=== PATIENT | female | born 1965 | race Caucasian/White ===

== ENCOUNTER 2023-02-05 14:01 | Emergency (ER) | payer MEDICAID, SELFPAY ==
[2023-02-05 14:20] VITALS: BP 125/78; PULSE 78; RESP 12; TEMP 37.3; O2SAT 95; BMI 43.3
--- NOTE | 2023-02-05 14:24 | ED.GENADULT ---
HPI - General Adult General Time Seen by Provider: 14:24 Date Seen: 02/05/23 Chief complaint: Shortness of Breath/Dyspnea Stated complaint: Shortness of breath, headache Time Seen by Provider: 02/05/23 14:23 Source: patient and RN notes reviewed Mode of arrival: ambulatory Limitations: no limitations History of Present Illness HPI narrative: Patient is a 57-year-old female coming in with symptoms at all started last night including fevers and chills, dry cough, significant headache, nausea without vomiting. She has body aches. There has been no travel, no known ill contacts. Her temperature has been up to 102.6, last took Tylenol at 9:40 a.m.. She is wanting something for her headache. She does have a sense of her chest feeling tight or heavy. Denies any history of lung or heart issues. Do note that her chart has a diagnosis of asthma. Nursing staff collected the triple viral swab which is pending. No abdominal pain, no vomiting, no diarrhea. Related Data Home Medications Medication Instructions Recorded Confirmed albuterol sulfate 90 mcg/actuation 2 puff inhalation Q4H PRN 03/19/22 aerosol inhaler (Ventolin HFA) bupropion HCl 150 mg 24 hr tablet, 150 mg PO QAM 03/19/22 extended release cyclobenzaprine 10 mg tablet 5 - 10 mg PO TID PRN 03/19/22 hydrocodone 5 mg-acetaminophen 325 1 tab PO Q6H PRN 03/19/22 mg tablet ketorolac 10 mg tablet 10 mg PO TID PRN 03/19/22 lorazepam 1 mg tablet 1 mg PO TID PRN 03/19/22 ondansetron HCl 4 mg tablet 4 mg PO Q6H PRN 03/19/22 Previous Rx's Medication Instructions Recorded metformin 500 mg tablet See Rx Instructions .Route 06/03/22 .COMPLEX #270 tabs alprazolam 1 mg tablet 0.5 - 1 mg (0.5 - 1 x 1 mg) PO TID 11/21/22 PRN anxiety #30 tabs trazodone 150 mg tablet 150 mg PO .HS PRN insomnia #90 tabs 11/21/22 fluoxetine 20 mg capsule 60 mg (3 x 20 mg) PO QDAY #270 caps 01/19/23 doxycycline monohydrate 100 mg 100 mg PO BID #20 caps 02/05/23 capsule Allergies Allergy/AdvReac Type Severity Reaction Status Date / Time vancomycin Allergy Unknown Verified 04/11/22 15:00 Review of Systems Status of ROS: Reports: 6 or more systems reviewed and unremarkable except as noted in History and below [facility] Medical History MATIAS on CPAP ?G47.33 - Obstructive sleep apnea (adult) (pediatric) (ICD-10) ?Z99.89 - Dependence on other enabling machines and devices (ICD-10) Obesity ?E66.9 - Obesity, unspecified (ICD-10) Latent autoimmune diabetes in adults, managed as type 2 ?E13.9 - Other specified diabetes mellitus without complications (ICD-10) Hypertension ?I10 - Essential (primary) hypertension (ICD-10) History of smoking ?Z87.891 - Personal history of nicotine dependence (ICD-10) Depression ?F32.A - Depression, unspecified (ICD-10) Concussion ?S06.0X9A - Concussion with loss of consciousness of unspecified duration, initial encounter (ICD-10) Chronic low back pain ?M54.50 - Low back pain, unspecified (ICD-10) ?G89.29 - Other chronic pain (ICD-10) Asthma ?J45.909 - Unspecified asthma, uncomplicated (ICD-10) Surgical History History of hysterectomy with oophorectomy History of cholecystectomy ?Z90.49 - Acquired absence of other specified parts of digestive tract (ICD-10) History of appendectomy ?Z90.49 - Acquired absence of other specified parts of digestive tract (ICD-10) Family History (Updated 04/11/22 @ 15:04 by Jaylene Martin) Unknown Diabetes Exam Const: Vital Signs, click to edit/add: Vital Signs - 24 hr 02/05/23 14:20 02/05/23 15:25 Temperature 99.2 F Pulse Rate [Pulse Oximeter] 78 67 Respiratory Rate 12 20 Blood Pressure [Ri ght Upper Arm] 125/78 133/85 Pulse Oximetry 95 95 Oxygen Delivery Me thod Room Air Room Air Documenting provider has reviewed patient's vital signs: yes Common normals: no apparent distress, average body habitus, oriented x3, no limitations, healthy appearing and alert General appearance: cooperative, comfortable, well kempt and well developed HENMT: Common normals: normocephalic, head/scalp atraumatic, hearing grossly normal bilaterally, external ears normal, TM's normal bilaterally, moist oral mucous membranes, oropharynx normal (Has upper denture) and gingiva normal Head and scalp: normocephalic and atraumatic Face and sinus: normal facial exam External ear: external ears normal Tympanic membrane: TM's normal bilaterally Eye: Common normals: PERRL, EOMs intact bilaterally, conjunctivae normal and no scleral icterus Conjunctiva: conjunctiva(e) normal Pupil: PERRL Neck & C-Spine: Common normals: full ROM, no lymphadenopathy, supple, no meningeal signs, no JVD and thyroid normal Thyroid: thyroid normal Lymph: Lymphatic: no lymphadenopathy noted Resp: Common normals: normal respiratory effort, no retractions and no use of accessory muscles Effort & inspection: able to speak in complete sentences Other: Maybe some basilar crackles on the right side, very faint however. Cardio: Common normals: no JVD, regular rate, regular rhythm, S1 normal heart sound, S2 normal heart sound, no gallops, no clicks and no murmurs Rate: regular rate Rhythm: regular rhythm Heart sounds: S1 normal and S2 normal GI: Common normals: Normal to inspection, nondistended, normoactive bowel sounds present, soft to palpation, non-tender, no hepatosplenomegaly and no masses Palpation: soft and no hepatosplenomegaly Extremity: Other: No lower extremity edema, no calf tenderness. Neuro: Common normals: oriented x3 Sensorium/orientation: alert Meningeal signs: no meningeal signs Psych: Appearance: well kempt Skin: Common normals: no rashes or lesions noted General skin exam: no rashes or lesions noted Course Course Hospital Course: Patient will be on pulse oximetry. Will get an EKG, established IV and get basic blood work. The triple viral swab is pending. We will obtain a portable chest x-ray. She most definitely has infectious etiology which is likely respiratory in nature. We discussed that we certainly can see accompanying headache with that. I have no concerns for clinical bacterial meningitis at this time. Will establish the IV as stated, give her some IV fluids, 15 mg IV Toradol and 4 mg IV Zofran for symptom control. Did review with the patient that if this is indeed COVID, have found that the headaches can be quite significant and best chance for treatment would be consideration of Paxlovid. We will discuss further pending outcomes of her testing. She is clinically hemodynamically stable at this time. Reevaluation(s) Time of Reevaluation #1: 15:48 Reevaluation #1: Reviewed with patient that radiologist his over read her chest x-ray is negative but I question if there is a faint infiltrate in the right lower lobe. She has an elevated white count that would go with bacterial pneumonia. Her COVID, influenza, RSV are negative. She has just gotten the IV fluids started and the Toradol, thus cannot really say that her headache is helped from this. We are going to give her dose of IV doxycycline for community-acquired pneumonia. Plan to discharge on oral antibiotics. Vital Signs Vital signs: Initial Vital Signs Temperature 99.2 F 02/05/23 14:20 Temperature Source Oral 02/05/23 14:20 Pulse Rate 78 02/05/23 14:20 Respiratory Rate 12 02/05/23 14:20 Blood Pressure 125/78 02/05/23 14:20 Blood Pressure Mean 93 02/05/23 14:20 Blood Pressure Position Sitting 02/05/23 14:20 Pulse Oximetry 95 02/05/23 14:20 Oxygen Delivery Method Room Air 02/05/23 14:20 Vital Signs Temperature 99.2 F 02/05/23 14:20 Pulse Rate 78 02/05/23 14:20 Respiratory Rate 12 02/05/23 14:20 Blood Pressure 125/78 02/05/23 14:20 Pulse Oximetry 95 02/05/23 14:20 Oxygen Delivery Method Room Air 02/05/23 14:20 Temperature 99.2 F 02/05/23 14:20 Pulse Rate 67 02/05/23 15:25 Respiratory Rate 20 02/05/23 15:25 Blood Pressure 133/85 02/05/23 15:25 Pulse Oximetry 95 02/05/23 15:25 Oxygen Delivery Method Room Air 02/05/23 15:25 Medical Decision Making Lab Data Lab results reviewed: Yes I reviewed the patient's lab results Labs: Lab Results 02/05/23 02/05/23 Range/Units 14:25 14:50 WBC 14.97 H (4.50-11.00) K/uL RBC 4.56 (4.00-5.20) m/uL Hgb 13.6 (12.0-16.0) gm/dL Hct 41.1 (33.0-51.0) % MCV 90 (80-100) fL MCH 30 (26-34) pg MCHC 33 (32-36) gm/dL RDW Coeff of Kathy 12.4 (11.5-15.5) % Plt Count 178 (140-440) K/uL Neut % (Auto) 79.8 H (42.0-72.0) % Lymph % (Auto) 13.8 L (20-44) % Cecil % (Auto) 6.1 (0.0-11.0) % Eos % (Auto) 0.1 (0.0-7.0) % Baso % (Auto) 0.1 (0.0-3.0) % Neut # (Auto) 11.90 H (1.7-7.0) K/uL Lymph # (Auto) 2.10 (0.90-2.90) K/uL Cecil # (Auto) 0.90 (0.00-0.90) K/UL Eos # (Auto) 0.00 (0.00-0.50) K/uL Baso # (Auto) 0.00 (0.00-0.30) K/uL Abs Immat Gran (auto) 0.00 (0.00-0.30) K/uL Imm/Tot Granulo (auto) 0.1 % Sodium 140 (135-149) mmol/L Potassium 3.6 (3.6-5.1) mmol/L Chloride 104 (96-114) mmol/L Carbon Dioxide 28 (20-32) mmol/L BUN 14 (7-30) mg/dL Creatinine 0.9 (0.5-1.5) mg/dL Estimated Creat Clear 63.55 Estimated GFR 76 ml/min Glucose 116 H (60-115) mg/dL Calcium 8.6 (8.4-10.6) mg/dL C-Reactive Protein 2.7 H (0.5-1.0) mg/dL SARS-CoV-2 (PCR) Negative SARS-CoV-2 (Negative) Influenza Type A (PCR) Negative PCR FLU A (Negative) Influenza Type B (PCR) Negative PCR FLU B (Negative) RSV (PCR) Negative PCR RSV (Negative) POC Troponin I 0.01 (0.01-0.04) ng/ml Imaging Data Chest x-ray: Attestation: I have reviewed the pertinent imaging results. Radiologist's impression: Patient: SERINA KAHN Facility:?[facility] Patient ID:?[id number] Site Patient ID:?[id number]. Site :?[id number] Study:?XRay Chest PORTABLE-02/05/2023 2:56:50 PM Ordering Physician:?Wilber Castillo Final Report: INDICATION: FEVER, COUGH TECHNIQUE: Chest 1 view. COMPARISON: None. FINDINGS: Cardiovascular and mediastinum: Heart size and vasculature are normal in caliber and appearance. Mediastinum is within normal limits. Lungs and pleural space: Lungs are clear. No sign of infiltrate or mass. No sign of pleural effusion. No pneumothorax. Bones and soft tissues: No significant findings. IMPRESSION: Unremarkable chest. Dictated by: Chico Alfred MD @ 02/05/2023 15:03:59 (Electronic Signature) ECG Data Attestation: I personally reviewed and interpreted this ECG as follows: (Normal sinus rhythm, 62 beats per minute. No evidence of ischemia. QT corrected 464 milliseconds.) Prior ECG tracings: not available for review Critical Care Time Critical Care Time Critical Care Time: No Discharge Plan Discharge Clinical Impression: Community acquired pneumonia Patient Disposition: Home, Self-Care Condition: Stable Instructions: Community Acquired Pneumonia (ED) Additional Instructions: Start oral antibiotics this evening and take as prescribed. Drink plenty of fluids to stay hydrated. Tylenol and ibuprofen per bottle directions as needed for pain management. The headaches and fever should improve over the next few days as the antibiotics work. If you are not improving, feel at any point that you have increasing symptoms or difficulty breathing, please seek re-evaluation. Otherwise, recheck in clinic in the next 1-2 weeks. Activity Level: Activity as Tolerated Prescriptions: New doxycycline monohydrate 100 mg capsule 100 mg PO BID Qty: 20 0RF No Action cyclobenzaprine 10 mg tablet 5 - 10 mg PO TID PRN Rx Instructions: Can use 1/2tab morning, 1/2tab midday and 1 at bedtime to minimize sedation. ondansetron HCl 4 mg tablet 4 mg PO Q6H PRN ketorolac 10 mg tablet 10 mg PO TID PRN lorazepam 1 mg tablet 1 mg PO TID PRN bupropion HCl 150 mg tablet extended release 24 hr 150 mg PO QAM albuterol sulfate [Ventolin HFA] 90 mcg/actuation HFA aerosol inhaler 2 puff inhalation Q4H PRN hydrocodone-acetaminophen 5-325 mg tablet 1 tab PO Q6H PRN metformin 500 mg tablet See Rx Instructions .ROUTE .COMPLEX Qty: 270 3RF Dose Instruction: TAKE 1 TABLET BY MOUTH EVERY MORNING AND TAKE 2 TABLETS BY MOUTH AT SUPPER(TAKE WITH FOOD) Rx Instructions: TAKE 1 TABLET BY MOUTH EVERY MORNING AND TAKE 2 TABLETS BY MOUTH AT SUPPER(TAKE WITH FOOD) alprazolam 1 mg tablet 0.5 - 1 mg PO TID PRN (Reason: anxiety) Qty: 30 1RF trazodone 150 mg tablet 150 mg PO .HS PRN (Reason: insomnia) Qty: 90 3RF fluoxetine 20 mg capsule 60 mg PO QDAY Qty: 270 2RF Follow Up/Referrals: Ned Aquino MD [Primary Care Provider] - Stand Alone Forms: Shoopi Info Instructions
--- NOTE | 2023-02-05 14:33 | CRLHL7_ITS ---
For Patients: As a result of the Cures Act, medical imaging exams and procedure reports are released immediately into your electronic medical record. You may view this report before your referring provider. If you have questions, please contact your health care provider. INDICATION: FEVER, COUGH TECHNIQUE: Chest 1 view. COMPARISON: None. FINDINGS: Cardiovascular and mediastinum: Heart size and vasculature are normal in caliber and appearance. Mediastinum is within normal limits. Lungs and pleural space: Lungs are clear. No sign of infiltrate or mass. No sign of pleural effusion. No pneumothorax. Bones and soft tissues: No significant findings. IMPRESSION: Unremarkable chest. Dictated by: Chico Alfred MD @ 02/05/2023 15:03:59 (Electronically Signed)
[2023-02-05 15:02] LABS: Basophils Percent Auto 0.1 % (0.0-3.0); Eosinophils Percent Auto 0.1 % (0.0-7.0); Hematocrit 41.1 % (33.0-51.0); Hemoglobin* 13.6 gm/dL (12.0-16.0); Immature Granulocytes Pct Auto 0.1 %; Lymphocytes Percent Auto 13.8 % (20-44); Mean Corpuscular HGB Conc 33 gm/dL (32-36); Mean Corpuscular Hemoglobin 30 pg (26-34); Mean Corpuscular Volume 90 fL (80-100); Monocytes Percent Auto 6.1 % (0.0-11.0); Neutrophils Percent Auto 79.8 % (42.0-72.0); Platelet Count* 178 K/uL (140-440); RDW Coefficient of Variation % 12.4 % (11.5-15.5); Red Blood Count 4.56 m/uL (4.00-5.20); White Blood Count* 14.97 K/uL (4.50-11.00)
[2023-02-05 15:05] LABS: Troponin, Point-of-Care* 0.01 ng/ml (0.01-0.04)
[2023-02-05 15:10] LABS: Slide Review Reflex No
[2023-02-05] MEDS: ONDANSETRON 2 MG/ML inj 4 MG IVP (15:14)
[2023-02-05] MEDS: 0.9 % SODIUM CHLORIDE 1000 ml 1,000 ML IV (15:14)
[2023-02-05] MEDS: KETOROLAC 15 MG/ML inj IVP (15:16)
[2023-02-05 15:25] VITALS: BP 133/85; PULSE 67; RESP 20; O2SAT 95
[2023-02-05 15:26] LABS: PCR FLU A Negative PCR FLU A (Negative); PCR FLU B Negative PCR FLU B (Negative); PCR RSV Negative PCR RSV (Negative)
[2023-02-05 15:31] LABS: SARS PCR* Negative SARS-CoV-2 (Negative)
[2023-02-05 15:33] LABS: Chloride* 104 mmol/L (96-114); Potassium* 3.6 mmol/L (3.6-5.1); Sodium* 140 mmol/L (135-149)
[2023-02-05 15:36] LABS: Blood Urea Nitrogen* 14 mg/dL (7-30); Calcium* 8.6 mg/dL (8.4-10.6); Carbon Dioxide* 28 mmol/L (20-32); Creatinine* 0.9 mg/dL (0.5-1.5); Est. Creatinine Clearance* 63.55; Estimated Glomerular Filt Rate 76 ml/min; Glucose* 116 mg/dL (60-115)
[2023-02-05 16:00] VITALS: BP 125/62; PULSE 63; RESP 20; O2SAT 99
[2023-02-05] MEDS: DOXYCYCLINE HYCLATE 100 MG in 0.9 % SODIUM CHLORIDE Mini-bag 100 ML IVPB (16:51)
[2023-02-05 17:00] VITALS: BP 130/77; PULSE 68; RESP 18
[2023-02-05 17:05] LABS: C Reactive Protein* 2.7 mg/dL (0.5-1.0)
[2023-02-05 18:50] VITALS: BP 124/60; PULSE 67; RESP 18; TEMP 36.1; O2SAT 98
== END 2023-02-05 18:53 | disposition home or self-care (01) ==
PROVIDERS: Emergency Provider Family Medicine; PCP Family Medicine
DX: J18.9 Pneumonia, unspecified organism (principal)
CPT/HCPCS: 36415; 71045; 80048; 84484; 85025; 86140; 87631; 93005; 94761; 96365; 96375; 99284; 99285; J1885; J2405; J7030

== ENCOUNTER 2023-03-20 12:14 | Emergency (ER) | payer MEDICAID, SELFPAY ==
[2023-03-20] VITALS (8 sets, daily range): BP systolic 142–157; BP diastolic 83–87; PULSE 56–64; RESP 18; TEMP 36.6; O2SAT 93–97; BMI 44.9
--- NOTE | 2023-03-20 12:35 | CRLHL7_ITS ---
For Patients: As a result of the Century Cures Act, medical imaging exams and procedure reports are released immediately into your electronic medical record. You may view this report before your referring provider. If you have questions, please contact your health care provider. Indication: Chest pain, shortness of breath and chest tightness Comparison: Single view chest February 05, 2023 Technique: Single AP view chest Findings: There is hyperinflation and chronic interstitial change. There are increased interstitial markings likely representing mild pulmonary vascular congestion. There is minimal basilar atelectasis and parenchymal scar. The cardiac silhouette is mildly prominent. The bony thorax is grossly intact. Impression: Increased interstitial markings likely representing pulmonary vascular congestion. Dictated by William Orr MD @ 03/20/2023 2:27:36 PM (Electronically Signed)
--- NOTE | 2023-03-20 12:39 | ED.CHESTPAIN ---
HPI - Chest Pain General Chief Complaint: Chest Pain Stated Complaint: chest tightness,short of breath Time Seen by Provider: 03/20/23 12:18 History of Present Illness HPI narrative: Patient is a 57-year-old woman who was diagnosed with pneumonia 1 month ago. She comes in today feeling like she is more short of breath since been having heaviness in her chest. Symptoms are moderate and been present for 2 days. She has no worsening with exertion. No fevers no chills no night sweats. She is not hypoxic. She does have a cough which is nonproductive. She is a previous smoker in did smoke some cigarettes for the 1st time in many years well camping last weekend. Patient has had no sick contacts she has been eating and drinking normally no other major symptoms. Related Data Home Medications Medication Instructions Recorded Confirmed hydrocodone 5 mg-acetaminophen 325 1 tab PO Q6H PRN 03/19/22 03/20/23 mg tablet ondansetron HCl 4 mg tablet 4 mg PO Q6H PRN 03/19/22 Previous Rx's Medication Instructions Recorded metformin 500 mg tablet See Rx Instructions .Route 06/03/22 .COMPLEX #270 tabs trazodone 150 mg tablet 150 mg PO .HS PRN insomnia #90 tabs 11/21/22 fluoxetine 20 mg capsule 60 mg (3 x 20 mg) PO QDAY #270 caps 01/19/23 albuterol sulfate 90 mcg/actuation 2 puff inhalation Q4H PRN 02/07/23 aerosol inhaler (Ventolin HFA) shortness of breath or wheezing #8.5 grams alprazolam 1 mg tablet 0.5 - 1 mg (0.5 - 1 x 1 mg) PO TID 02/14/23 PRN anxiety #30 tabs Allergies Allergy/AdvReac Type Severity Reaction Status Date / Time vancomycin Allergy Unknown Verified 04/11/22 15:00 Review of Systems Status of ROS Reports: 10 or more systems reviewed and unremarkable except as noted in History and below [facility] Medical History MATIAS on CPAP ?G47.33 - Obstructive sleep apnea (adult) (pediatric) (ICD-10) ?Z99.89 - Dependence on other enabling machines and devices (ICD-10) Obesity ?E66.9 - Obesity, unspecified (ICD-10) Latent autoimmune diabetes in adults, managed as type 2 ?E13.9 - Other specified diabetes mellitus without complications (ICD-10) Hypertension ?I10 - Essential (primary) hypertension (ICD-10) History of smoking ?Z87.891 - Personal history of nicotine dependence (ICD-10) Depression ?F32.A - Depression, unspecified (ICD-10) Concussion ?S06.0X9A - Concussion with loss of consciousness of unspecified duration, initial encounter (ICD-10) Chronic low back pain ?M54.50 - Low back pain, unspecified (ICD-10) ?G89.29 - Other chronic pain (ICD-10) Asthma ?J45.909 - Unspecified asthma, uncomplicated (ICD-10) Surgical History History of hysterectomy with oophorectomy History of cholecystectomy ?Z90.49 - Acquired absence of other specified parts of digestive tract (ICD-10) History of appendectomy ?Z90.49 - Acquired absence of other specified parts of digestive tract (ICD-10) Family History Unknown Diabetes Social History Smoking Status: Light tobacco smoker How often do you have a drink containing alcohol: monthly or less AUDIT-C Alcohol total score: 1 service: No Exam Narrative Exam Narrative: EXAM GENERAL: Patient appears comfortable and well. EYES: No scleral icterus. LYMPH: No supraclavicular or cervical lymphadenopathy. SKIN: Visible skin seen during exam normal or with benign process only. EXT: No dependent lower extremity pedal edema. HEART: Regular rate and rhythm with no murmurs, rubs, or gallops. LUNGS: Clear to auscultation bilaterally with no crackles or wheezes. ABD: Soft, non tender, non distended. PSYCH: Good eye contact, speech is not pressured. Const Vital Signs, click to edit/add: Vital Signs - 24 hr 03/20/23 12:26 Temperature 97.8 F Pulse Rate [Right Pulse Oximeter] 63 Respiratory Rate 18 Blood Pressure [Left Upper Arm] 146/83 H Pulse Oximetry 95 Oxygen Delivery Method Room Air Course Course Hospital Course: EKG upon my review shows no acute ST or T-wave changes. Patient appears to be in no distress. Her exam is normal I did send off portable chest x-ray CBC basic metabolic panel troponin D-dimer. Viral testing also requested. Vital Signs Vital signs: Initial Vital Signs Temperature 97.8 F 03/20/23 12:26 Temperature Source Temporal Artery Scan 03/20/23 12:26 Pulse Rate 63 03/20/23 12:26 Pulse Rhythm Regular 03/20/23 12:26 Respiratory Rate 18 03/20/23 12:26 Blood Pressure 146/83 H 03/20/23 12:26 Blood Pressure Mean 104 03/20/23 12:26 Blood Pressure Position Sitting 03/20/23 12:26 Pulse Oximetry 95 03/20/23 12:26 Oxygen Delivery Method Room Air 03/20/23 12:26 Vital Signs Temperature 97.8 F 03/20/23 12:26 Pulse Rate 63 03/20/23 12:26 Respiratory Rate 18 03/20/23 12:26 Blood Pressure 146/83 H 03/20/23 12:26 Pulse Oximetry 95 03/20/23 12:26 Oxygen Delivery Method Room Air 03/20/23 12:26 Temperature 97.8 F 03/20/23 12:26 Pulse Rate 63 03/20/23 12:26 Respiratory Rate 18 03/20/23 12:26 Blood Pressure 146/83 H 03/20/23 12:26 Pulse Oximetry 95 03/20/23 12:26 Oxygen Delivery Method Room Air 03/20/23 12:26 MDM - Chest Pain MDM Narrative Medical decision making narrative: Patient is a 57-year-old woman with history asthma who presented with chest fullness and heaviness. She had smoked cigarettes for 1st time in many years this past weekend. Laboratory evaluation was reassuring with negative troponin borderline but still in my opinion negative D-dimer CBC electrolytes were normal. Chest x-ray showed questionable pulmonary congestion. Patient really has no other findings consistent with congestive heart failure. Patient is otherwise feeling well and is ready for discharge. She is willing to follow-up next week with her primary. I would repeat the chest x-ray at that time and consider echocardiogram Differential Diagnosis Differential diagnosis: Likely fracture of rib, pneumothorax, stable angina, unstable angina pectoris, atypical chest pain, st elevation myocardial infarction, costochondritis and chest pain Lab Data Labs: Lab Results 03/20/23 03/20/23 Range/Units 12:42 13:20 WBC 7.34 (4.50-11.00) K/uL RBC 4.60 (4.00-5.20) m/uL Hgb 13.6 (12.0-16.0) gm/dL Hct 41.6 (33.0-51.0) % MCV 90 (80-100) fL MCH 30 (26-34) pg MCHC 33 (32-36) gm/dL RDW Coeff of Kathy 12.3 (11.5-15.5) % Plt Count 146 (140-440) K/uL Neut % (Auto) 61.0 (42.0-72.0) % Lymph % (Auto) 30.9 (20-44) % Bureau % (Auto) 6.5 (0.0-11.0) % Eos % (Auto) 1.2 (0.0-7.0) % Baso % (Auto) 0.3 (0.0-3.0) % Neut # (Auto) 4.47 (1.7-7.0) K/uL Lymph # (Auto) 2.27 (0.90-2.90) K/uL Bureau # (Auto) 0.50 (0.00-0.90) K/UL Eos # (Auto) 0.09 (0.00-0.50) K/uL Baso # (Auto) 0.02 (0.00-0.30) K/uL Abs Immat Gran (auto) 0.01 (0.00-0.30) K/uL Imm/Tot Granulo (auto) 0.1 % Diff Slide Review Acceptable Review (Acceptable) D-Dimer Quant (PE/DVT) 0.52 H (0.00-0.50) ug/ml Sodium 141 (135-149) mmol/L Potassium 3.5 L (3.6-5.1) mmol/L Chloride 106 (96-114) mmol/L Carbon Dioxide 26 (20-32) mmol/L Anion Gap 9 (7-15) mEq/L BUN 11 (7-30) mg/dL Creatinine 0.7 (0.5-1.5) mg/dL Estimated Creat Clear 81.71 Estimated GFR 102 ml/min Glucose 101 (60-115) mg/dL Calcium 8.8 (8.4-10.6) mg/dL Troponin I < 0.01 L (0.01-0.04) ng/mL SARS-CoV-2 (PCR) Negative SARS-CoV-2 (Negative) Influenza Type A (PCR) Negative PCR FLU A (Negative) Influenza Type B (PCR) Negative PCR FLU B (Negative) RSV (PCR) Negative PCR RSV (Negative) Discharge Plan Discharge Clinical Impression: Chest pain Patient Disposition: Home, Self-Care Condition: Stable Instructions: Chest Pain (ED) Additional Instructions: Continue current medications and follow up with her doctor next week to continue evaluation. Activity Level: No Restrictions Discharge Diet: Regular Prescriptions: No Action ondansetron HCl 4 mg tablet 4 mg PO Q6H PRN hydrocodone-acetaminophen 5-325 mg tablet 1 tab PO Q6H PRN metformin 500 mg tablet See Rx Instructions .ROUTE .COMPLEX Qty: 270 3RF Dose Instruction: TAKE 1 TABLET BY MOUTH EVERY MORNING AND TAKE 2 TABLETS BY MOUTH AT SUPPER(TAKE WITH FOOD) Rx Instructions: TAKE 1 TABLET BY MOUTH EVERY MORNING AND TAKE 2 TABLETS BY MOUTH AT SUPPER(TAKE WITH FOOD) trazodone 150 mg tablet 150 mg PO .HS PRN (Reason: insomnia) Qty: 90 3RF fluoxetine 20 mg capsule 60 mg PO QDAY Qty: 270 2RF albuterol sulfate [Ventolin HFA] 90 mcg/actuation HFA aerosol inhaler 2 puff inhalation Q4H PRN (Reason: shortness of breath or wheezing) Qty: 8.5 6RF alprazolam 1 mg tablet 0.5 - 1 mg PO TID PRN (Reason: anxiety) Qty: 30 1RF Follow Up/Referrals: Ned Aquino MD [Primary Care Provider] - Stand Alone Forms: Cerephex Info Instructions
[2023-03-20 13:34] LABS: Basophils Absolute Auto 0.02 K/uL (0.00-0.30); Basophils Percent Auto 0.3 % (0.0-3.0); Eosinophils Absolute Auto 0.09 K/uL (0.00-0.50); Eosinophils Percent Auto 1.2 % (0.0-7.0); Hematocrit 41.6 % (33.0-51.0); Hemoglobin* 13.6 gm/dL (12.0-16.0); Immature Granulocytes Abs Auto 0.01 K/uL (0.00-0.30); Immature Granulocytes Pct Auto 0.1 %; Lymphocytes Absolute Auto 2.27 K/uL (0.90-2.90); Lymphocytes Percent Auto 30.9 % (20-44); Mean Corpuscular HGB Conc 33 gm/dL (32-36); Mean Corpuscular Hemoglobin 30 pg (26-34); Mean Corpuscular Volume 90 fL (80-100); Monocytes Percent Auto 6.5 % (0.0-11.0); Neutrophils Absolute Auto 4.47 K/uL (1.7-7.0); Platelet Count* 146 K/uL (140-440); RDW Coefficient of Variation % 12.3 % (11.5-15.5); White Blood Count* 7.34 K/uL (4.50-11.00)
[2023-03-20 13:37] LABS: PCR FLU A Negative PCR FLU A (Negative); PCR FLU B Negative PCR FLU B (Negative); PCR RSV Negative PCR RSV (Negative)
[2023-03-20 13:48] LABS: SARS PCR* Negative SARS-CoV-2 (Negative)
[2023-03-20 13:49] LABS: Chloride* 106 mmol/L (96-114); Potassium* 3.5 mmol/L (3.6-5.1); Sodium* 141 mmol/L (135-149)
[2023-03-20 13:52] LABS: Anion Gap 9 mEq/L (7-15); Blood Urea Nitrogen* 11 mg/dL (7-30); Carbon Dioxide* 26 mmol/L (20-32); Creatinine* 0.7 mg/dL (0.5-1.5); Est. Creatinine Clearance* 81.71; Estimated Glomerular Filt Rate 102 ml/min; Glucose* 101 mg/dL (60-115)
[2023-03-20 13:53] LABS: Calcium* 8.8 mg/dL (8.4-10.6)
[2023-03-20 13:55] LABS: D Dimer Quantitative* 0.52 ug/ml (0.00-0.50)
[2023-03-20 14:02] LABS: Slide Review Reflex Yes
[2023-03-20 14:03] LABS: Slide Review Acceptable Review (Acceptable)
[2023-03-20 14:08] LABS: Troponin I* < 0.01 ng/mL (0.01-0.04)
[2023-03-20] MEDS: KETOROLAC 30 MG/ML inj IM (14:50)
== END 2023-03-20 14:52 | disposition home or self-care (01) ==
PROVIDERS: Emergency Provider Internal Medicine; PCP Family Medicine
DX: R07.9 Chest pain, unspecified (principal)
CPT/HCPCS: 36415; 71045; 80048; 84484; 85025; 85379; 87631; 93005; 96372; 99283; 99284; 99285; J1885

== ENCOUNTER 2023-05-10 08:58 | Emergency (ER) | payer MEDICAID, SELFPAY ==
[2023-05-10 09:01] VITALS: BP 174/96; PULSE 57; RESP 18; TEMP 36.4; O2SAT 99; BMI 46.6
--- NOTE | 2023-05-10 10:41 | ED.GENADULT ---
HPI - General Adult General Time Seen by Provider: 10:41 Date Seen: 05/10/23 Chief complaint: Headache/Migraine Stated complaint: Severe headache Time Seen by Provider: 05/10/23 10:28 History of Present Illness HPI narrative: This is a very pleasant 57-year-old female with a past medical history including type 2 diabetes, hypertension, obesity, sleep apnea, chronic low back pain. She manages her low back [facility] [place]. She has a history of needing lumbar spine injections, roughly once per year. She underwent another set of injections into her lumbar spine (she thinks at the L5-S1 level) yesterday. She is not sure if she had epidural steroid injections or facet injections or exactly what procedure she underwent. She had her back injections yesterday and did well. She was discharged home. Yesterday evening, she began developing headache. She noticed it in particular at around 2:00 a.m. last night when she woke up to use the bathroom. and worse this morning. The headache is predominantly in the back of her head and does make her neck feel little bit stiff. She is worried that she might have some sort of a spinal fluid leak and so came here to the ER. No other symptoms with the headache. No fever. No facial pain or sinus drainage. No visual disturbance. No change in hearing. No focal numbness or weakness. She says the pain is located in the back of her head and goes into her neck (but she is not really having neck stiffness). No injury. No known carbon monoxide exposure. No other symptoms. No low back pain. She has not had any recent change in her vision but she did get a new prescription a few weeks ago because it was time for her annual eye exam. Related Data Home Medications Medication Instructions Recorded Confirmed hydrocodone 5 mg-acetaminophen 325 1 tab PO Q6H PRN 03/19/22 05/10/23 mg tablet ondansetron HCl 4 mg tablet 4 mg PO Q6H PRN 03/19/22 Previous Rx's Medication Instructions Recorded metformin 500 mg tablet See Rx Instructions .Route 06/03/22 .COMPLEX #270 tabs trazodone 150 mg tablet 150 mg PO .HS PRN insomnia #90 tabs 11/21/22 fluoxetine 20 mg capsule 60 mg (3 x 20 mg) PO QDAY #270 caps 01/19/23 albuterol sulfate 90 mcg/actuation 2 puff inhalation Q4H PRN 02/07/23 aerosol inhaler (Ventolin HFA) shortness of breath or wheezing #8.5 grams alprazolam 1 mg tablet 0.5 - 1 mg (0.5 - 1 x 1 mg) PO TID 02/14/23 PRN anxiety #30 tabs Allergies Allergy/AdvReac Type Severity Reaction Status Date / Time vancomycin Allergy Unknown Verified 04/11/22 15:00 [facility] Medical History MATIAS on CPAP ?G47.33 - Obstructive sleep apnea (adult) (pediatric) (ICD-10) ?Z99.89 - Dependence on other enabling machines and devices (ICD-10) Obesity ?E66.9 - Obesity, unspecified (ICD-10) Latent autoimmune diabetes in adults, managed as type 2 ?E13.9 - Other specified diabetes mellitus without complications (ICD-10) Hypertension ?I10 - Essential (primary) hypertension (ICD-10) History of smoking ?Z87.891 - Personal history of nicotine dependence (ICD-10) Depression ?F32.A - Depression, unspecified (ICD-10) Concussion ?S06.0X9A - Concussion with loss of consciousness of unspecified duration, initial encounter (ICD-10) Chronic low back pain ?M54.50 - Low back pain, unspecified (ICD-10) ?G89.29 - Other chronic pain (ICD-10) Asthma ?J45.909 - Unspecified asthma, uncomplicated (ICD-10) Surgical History History of hysterectomy with oophorectomy History of cholecystectomy ?Z90.49 - Acquired absence of other specified parts of digestive tract (ICD-10) History of appendectomy ?Z90.49 - Acquired absence of other specified parts of digestive tract (ICD-10) Family History Unknown Diabetes Social History Smoking Status: Former smoker Do you use any of these nicotine containing products: None Second hand tobacco smoke exposure: No How often do you have a drink containing alcohol: monthly or less How many standard drinks containing alcohol do you have on a typical day: 1 or 2 How often do you have six or more drinks on one occasion: Never AUDIT-C Alcohol total score: 1 Non-prescribed substance use: denies use service: No Exam Narrative: Exam Narrative: Constitutional: Appears well-developed and well-nourished. Alert. Conversant. Non toxic. Sitting up in the chair in ER room for. She is polite and conversant and nontoxic. HENT: Head: Atraumatic. Nose: Nose normal. No depressed skull fracture, [place], Santos's sign, or hemotympanum. Face normal. TMs normal Mouth/Throat: Oral mucosa is clear and moist. no trismus. Pharynx normal. Tonsils symmetric. No tonsillar enlargement, erythema, or exudate. Eyes: Conjunctivae normal. EOM normal. Pupils equal, round, and reactive to light. No scleral icterus. Neck: Normal range of motion. Neck supple. No tracheal deviation present. Cardiovascular: Normal rate, regular rhythm. No gallop. No friction rub. No murmur heard. Symmetric radial artery pulses Pulmonary/Chest: Effort normal. No stridor. No respiratory distress. No wheezes. No rales. No rhonchi . No tenderness. Abdominal: Soft. Bowel sounds normal. No distension. No mass. No tenderness. No rebound. No guarding. Musculoskeletal: RUE: Normal range of motion. No tenderness. No deformity LUE: Normal range of motion. No tenderness. No deformity RLE: Normal range of motion. No edema. No tenderness. No deformity LLE: Normal range of motion. No edema. No tenderness. No deformity Lymph: No cervical adenopathy. Mental status normal. Attention normal. Alert and oriented x3. GCS 15. Memory normal. Speech fluent. Cognition normal. Cranial Nerves intact II-XII except I did not formally test gag or visual acuity. EOMI. Palate elevates symmetrically and tongue protrudes in the midline. Strength: 5/5 trapezius on the right and left 5/5 deltoid on the right and left 5/5 biceps on the right and left 5/5 triceps on the right and left 5/5 electronic field service engineer on the right and left 5/5 thumb opposition on the right and left 5/5 finger abduction on the right and left 5/5 hip flexors (L3) on the right and left 5/5 quadriceps (L4) on the right and left 5/5 tibialis anterior on the right and left 5/5 EHL (L5) on the right and left 5/5 gastrocnemius (S1) on the right and left 5/5 hamstring on the right and left Sensation intact to light touch in both upper extremities (C4-T1) Sensation intact to light touch in Both lower extremities (L4-S1). Finger to nose and coordination normal. Gait normal. Skin: Skin is warm and dry. No rash noted. No pallor. Normal capillary refill. Psychiatric: Normal mood. Normal affect. Const: Vital Signs, click to edit/add: Vital Signs - 24 hr 05/10/23 09:01 05/10/23 12:17 05/10/23 14:21 Temperature 97.5 F L 96.9 F L 96.9 F L Pulse Rate [Pulse Oximeter] 57 L 63 63 Respiratory Rate 18 16 16 Blood Pressure [Ri ght Upper Arm] 174/96 H 161/86 H 161/86 H Pulse Oximetry 99 99 Oxygen Delivery Me thod Room Air Room Air Course Vital Signs Vital signs: Initial Vital Signs Temperature 97.5 F L 05/10/23 09:01 Temperature Source Temporal Artery Scan 05/10/23 09:01 Pulse Rate 57 L 05/10/23 09:01 Respiratory Rate 18 05/10/23 09:01 Blood Pressure 174/96 H 05/10/23 09:01 Blood Pressure Mean 122 H 05/10/23 09:01 Blood Pressure Position Supine 05/10/23 09:01 Pulse Oximetry 99 05/10/23 09:01 Oxygen Delivery Method Room Air 05/10/23 09:01 Vital Signs Temperature 97.5 F L 05/10/23 09:01 Pulse Rate 57 L 05/10/23 09:01 Respiratory Rate 18 05/10/23 09:01 Blood Pressure 174/96 H 05/10/23 09:01 Pulse Oximetry 99 05/10/23 09:01 Oxygen Delivery Method Room Air 05/10/23 09:01 Temperature 96.9 F L 05/10/23 14:21 Pulse Rate 63 05/10/23 14:21 Respiratory Rate 16 05/10/23 14:21 Blood Pressure 161/86 H 05/10/23 14:21 Pulse Oximetry 99 05/10/23 12:17 Oxygen Delivery Method Room Air 05/10/23 12:17 Medical Decision Making [facility] Narrative Medical decision making narrative: Ths patient presents with a headache affecting the back of her head and the top of her neck. She underwent lumbar spine injections yesterday. Patient was primarily concerned about the potential for a dural puncture related headache/post spinal headache. Discussed with patient that this certainly could be possible although the history is not classic for that since the headache is not positional or postural. Discussed that there is no definitive way to rule in or rule out the diagnosis. If there were high suspicion we could refer to Anesthesia for blood patch. With low clinical suspicion she would prefer to hold off any further procedures or blood patch for now. A broad differential diagnosis was considered including tension, migraine, analgesic rebound, occipital neuralgia, etc. Other less common but serious causes considered included meningitis, encephalitis, subarachnoid bleed, stroke, tumor, etc. since the headache was rather abrupt in onset and it is atypical for previous headache pattern we did decide to go ahead with advanced imaging. CT scan is negative for intracranial hemorrhage. However CT scan was obtained about 8 hours from onset of her bad headache and therefore cannot be will consider to be 100% sensitive for subarachnoid. CT angio is obtained and shows no acute aneurysm, dissection, or other vascular abnormality. Incidentally she does carotid atherosclerotic disease with less than 50% stenosis. Discussed with the patient and discussed risk factor modification. She will follow up with outpatient. CT scan does show potential signs for intracranial hypertension. I discussed with the patient. Would be a bit atypical for this to present with an abrupt onset headache overnight tonight. She does not have a pattern of other headaches or any other recent visual changes. We discussed that the best test to confirm or rule out intracranial hypertension would be opening pressure measurement after lumbar puncture. We discussed lumbar puncture. She would prefer to hold off for now. Labs also show leukocytosis which could raise concern for infection. However she also did have steroid injections yesterday so this could be a steroid de margination. At this point although she does have a headache and a leukocytosis I still have low suspicion for bacterial meningitis. she is not febrile, she is neurologically intact, she has no neck stiffness. She is clinically very well appearing. Discussed options for further workup. Patient referred to discharge home, take her previously prescribed [place] and monitor symptoms there. She says that she will come back if she gets any worse or develops other symptoms. Patients questions were answered and they feel improved after above interventions in ED. Supportive outpatient management is therefore indicated. Headache precautions given for home. Lab Data Labs: Lab Results 05/10/23 Range/Units 11:30 WBC 16.65 H (4.50-11.00) K/uL RBC 4.55 (4.00-5.20) m/uL Hgb 13.6 (12.0-16.0) gm/dL Hct 41.6 (33.0-51.0) % MCV 91 (80-100) fL MCH 30 (26-34) pg MCHC 33 (32-36) gm/dL RDW Coeff of Kathy 12.4 (11.5-15.5) % Plt Count 228 (140-440) K/uL Neut % (Auto) 78.2 H (42.0-72.0) % Lymph % (Auto) 15.6 L (20-44) % [place] % (Auto) 5.7 (0.0-11.0) % Eos % (Auto) 0.1 (0.0-7.0) % Baso % (Auto) 0.1 (0.0-3.0) % Neut # (Auto) 13.00 H (1.7-7.0) K/uL Lymph # (Auto) 2.60 (0.90-2.90) K/uL [place] # (Auto) 0.90 (0.00-0.90) K/UL Eos # (Auto) 0.00 (0.00-0.50) K/uL Baso # (Auto) 0.00 (0.00-0.30) K/uL Abs Immat Gran (auto) 0.00 (0.00-0.30) K/uL Imm/Tot Granulo (auto) 0.3 % Sodium 143 (135-149) mmol/L Potassium 3.5 L (3.6-5.1) mmol/L Chloride 109 (96-114) mmol/L Carbon Dioxide 27 (20-32) mmol/L Anion Gap 7 (7-15) mEq/L BUN 12 (7-30) mg/dL Creatinine 0.6 (0.5-1.5) mg/dL Estimated Creat Clear 95.33 Estimated GFR 106 ml/min Glucose 129 H (60-115) mg/dL Calcium 8.8 (8.4-10.6) mg/dL Imaging Data CT scan - head: Attestation: I have reviewed the pertinent imaging results. Radiologist's impression: IMPRESSION: 1. No acute intracranial hemorrhage or mass effect. No significant change compared to the prior CT. 2. Partially empty sella may represent an anatomic variant, though raises the possibility of idiopathic intracranial hypertension in an appropriate clinical setting. CT angio head and neck: Attestation: I have reviewed the pertinent imaging results. Radiologist's impression: No proximal large vessel occlusion or arterial dissection. Mild (less than 50 percent) proximal left cervical internal carotid artery stenosis. Discharge Plan Discharge Clinical Impression: Acute neck pain, Atherosclerosis of left carotid artery, Headache, Leukocytosis Patient Disposition: Home, Self-Care Condition: Stable Instructions: Carotid Artery Disease (DC), Acute Headache (DC), Leukocytosis (ED) Additional Instructions: As we discussed, please come back to the ER immediately if you have any worsening symptoms such as worsening headache, worsening stiff neck, fever or chills, blurry vision, numbness or tingling in your face arms or legs, weakness of an arm or leg, slurred speech, or if you have any concerns. Prescriptions: No Action ondansetron HCl 4 mg tablet 4 mg PO Q6H PRN hydrocodone-acetaminophen 5-325 mg tablet 1 tab PO Q6H PRN metformin 500 mg tablet See Rx Instructions .ROUTE .COMPLEX Qty: 270 3RF Dose Instruction: TAKE 1 TABLET BY MOUTH EVERY MORNING AND TAKE 2 TABLETS BY MOUTH AT SUPPER(TAKE WITH FOOD) Rx Instructions: TAKE 1 TABLET BY MOUTH EVERY MORNING AND TAKE 2 TABLETS BY MOUTH AT SUPPER(TAKE WITH FOOD) trazodone 150 mg tablet 150 mg PO .HS PRN (Reason: insomnia) Qty: 90 3RF fluoxetine 20 mg capsule 60 mg PO QDAY Qty: 270 2RF albuterol sulfate [Ventolin HFA] 90 mcg/actuation HFA aerosol inhaler 2 puff inhalation Q4H PRN (Reason: shortness of breath or wheezing) Qty: 8.5 6RF alprazolam 1 mg tablet 0.5 - 1 mg PO TID PRN (Reason: anxiety) Qty: 30 1RF Follow Up/Referrals: Ned Aquino MD [Primary Care Provider] - Stand Alone Forms: MyHealth Info Instructions
--- NOTE | 2023-05-10 11:17 | CRLHL7_ITS ---
For Patients: As a result of the Century Cures Act, medical imaging exams and procedure reports are released immediately into your electronic medical record. You may view this report before your referring provider. If you have questions, please contact your health care provider. CLINICAL HISTORY: Occipital headache, neck pain. TECHNIQUE: CTA neck with contrast bolus tracking. 3D angiographic rendering using maximum intensity projection (MIP) and images permanently archived. COMPARISON: None available. FINDINGS: The great vessels are patent. The common carotid arteries are patent. Mild (<50%) atherosclerotic stenosis of the proximal left ICA by NASCET criteria. No significant stenosis of the proximal right ICA by NASCET criteria. The more distal cervical ICAs are patent. The origins of the vertebral arteries are patent. The cervical segments of the vertebral arteries are patent. IMPRESSION: Mild (<50%) atherosclerotic stenosis of the proximal left ICA by NASCET criteria. Please note that all CT scans at this facility use dose modulation, iterative reconstruction, and/or weight-based dosing when appropriate to reduce radiation dose to as low as reasonably achievable. Dictated by Edwin Peguero MD @ 05/10/2023 9:30:43 PM (Electronically Signed)
--- NOTE | 2023-05-10 11:17 | CRLHL7_ITS ---
For Patients: As a result of the Century Cures Act, medical imaging exams and procedure reports are released immediately into your electronic medical record. You may view this report before your referring provider. If you have questions, please contact your health care provider. CLINICAL HISTORY: Occipital headache and neck pain. TECHNIQUE: CTA head with contrast bolus tracking. 3D angiographic rendering using maximum intensity projection (MIP) and images permanently archived. COMPARISON: None available. FINDINGS: The petrous, cavernous, and supraclinoid segments of the internal carotid arteries are patent. The anterior and middle cerebral arteries are patent. The anterior communicating artery is visualized and is within normal limits. The intracranial vertebral arteries, basilar trunk, and posterior cerebral arteries are patent. No intracranial proximal large vessel occlusion or flow-limiting luminal stenosis. No evidence of cerebral aneurysm. No findings to suggest an arterial-venous shunting lesion. IMPRESSION: No intracranial proximal large vessel occlusion, flow-limiting luminal stenosis, or cerebral aneurysm. Please note that all CT scans at this facility use dose modulation, iterative reconstruction, and/or weight-based dosing when appropriate to reduce radiation dose to as low as reasonably achievable. Dictated by Edwin Peguero MD @ 05/10/2023 9:26:50 PM (Electronically Signed)
--- NOTE | 2023-05-10 11:18 | CRLHL7_ITS ---
For Patients: As a result of the Century Cures Act, medical imaging exams and procedure reports are released immediately into your electronic medical record. You may view this report before your referring provider. If you have questions, please contact your health care provider. INDICATION: Headache. Neck pain. TECHNIQUE: Noncontrast CT images acquired through the brain. COMPARISON: CT brain 01/08/2021. FINDINGS: The ventricles and sulci are within normal limits for patient age. No mass effect or midline shift. The koch-white differentiation is maintained. No acute intracranial hemorrhage or pathologic extra-axial fluid collection. Partially empty sella. Atherosclerotic calcifications in the carotid siphons. The globes are symmetric. The calvarium is intact. The paranasal sinuses and mastoid air cells are clear. IMPRESSION: 1. No acute intracranial hemorrhage or mass effect. No significant change compared to the prior CT. 2. Partially empty sella may represent an anatomic variant, though raises the possibility of idiopathic intracranial hypertension in an appropriate clinical setting. Please note that all CT scans at this facility use dose modulation, iterative reconstruction, and/or weight-based dosing when appropriate to reduce radiation dose to as low as reasonably achievable. Dictated by Obed Oliver MD @ 05/10/2023 11:59:08 AM (Electronically Signed)
[2023-05-10 11:37] LABS: Basophils Percent Auto 0.1 % (0.0-3.0); Eosinophils Percent Auto 0.1 % (0.0-7.0); Hematocrit 41.6 % (33.0-51.0); Hemoglobin* 13.6 gm/dL (12.0-16.0); Immature Granulocytes Pct Auto 0.3 %; Lymphocytes Percent Auto 15.6 % (20-44); Mean Corpuscular HGB Conc 33 gm/dL (32-36); Mean Corpuscular Hemoglobin 30 pg (26-34); Mean Corpuscular Volume 91 fL (80-100); Monocytes Percent Auto 5.7 % (0.0-11.0); Neutrophils Percent Auto 78.2 % (42.0-72.0); Platelet Count* 228 K/uL (140-440); RDW Coefficient of Variation % 12.4 % (11.5-15.5); Red Blood Count 4.55 m/uL (4.00-5.20); White Blood Count* 16.65 K/uL (4.50-11.00)
[2023-05-10 11:48] LABS: Slide Review Reflex No
[2023-05-10] MEDS: KETOROLAC 15 MG/ML inj IVP (11:49)
[2023-05-10 11:53] LABS: Chloride* 109 mmol/L (96-114); Sodium* 143 mmol/L (135-149)
[2023-05-10 11:54] LABS: Potassium* 3.5 mmol/L (3.6-5.1)
[2023-05-10 11:56] LABS: Creatinine* 0.6 mg/dL (0.5-1.5); Est. Creatinine Clearance* 95.33; Estimated Glomerular Filt Rate 106 ml/min
[2023-05-10 11:57] LABS: Anion Gap 7 mEq/L (7-15); Blood Urea Nitrogen* 12 mg/dL (7-30); Calcium* 8.8 mg/dL (8.4-10.6); Carbon Dioxide* 27 mmol/L (20-32); Glucose* 129 mg/dL (60-115)
[2023-05-10 12:17] VITALS: BP 161/86; PULSE 63; RESP 16; TEMP 36.1; O2SAT 99
[2023-05-10 14:21] VITALS: BP 161/86; PULSE 63; RESP 16; TEMP 36.1
== END 2023-05-10 14:21 | disposition home or self-care (01) ==
PROVIDERS: Emergency Provider Emergency Medicine; PCP Family Medicine
DX: I65.22 Occlusion and stenosis of left carotid artery (principal); D72.829 Elevated white blood cell count, unspecified; R51.9 Headache, unspecified; M54.2 Cervicalgia
CPT/HCPCS: 36415; 70450; 70496; 70498; 80048; 85025; 96375; 99283; 99284; 99285; J1885; Q9967

== ENCOUNTER 2023-08-24 08:50 | Emergency (ER) | payer MEDICAID, SELFPAY ==
[2023-08-24 08:59] VITALS: BP 123/75; PULSE 53; TEMP 36.5; O2SAT 95; BMI 43.1
--- NOTE | 2023-08-24 09:21 | ED.GENADULT ---
HPI - General Adult General Time Seen by Provider: 09:21 Date Seen: 08/24/23 Chief complaint: Nausea/Vomiting Stated complaint: Flu symptoms, bladder infection Time Seen by Provider: 08/24/23 09:20 Source: patient and RN notes reviewed Mode of arrival: ambulatory Limitations: no limitations History of Present Illness HPI narrative: Standing he is a 57-year-old female coming in with concerns of ongoing nausea vomiting and diarrhea. Symptoms started Friday, is still having the symptoms today and it is Friday. She really can not eat anything, states it comes up. She is able to drink water and is keeping it down but feels like she is not able to drink enough to keep up. She has noted no blood in the vomit or stools. She is still having diarrhea as well as vomiting since Friday. She has had a little cough with it. She has felt warm and chilled at times, thinks she does have a fever but her thermometer battery at home, has not been able to check her temperature. Did have some sinus symptoms with this initially, did have 2- home COVID test. No known ill contacts or travel. She states this is longer she has had diarrhea has been trying some Imodium. Does feel some abdominal pain. Did have a gastric sleeve about 5 years ago, has had appendectomy, cholecystectomy and hysterectomy prior. This morning started to note some dysuria, was not sure she was just feeling feverish at the time or she is possibly getting a urinary tract infection. Related Data Home Medications Medication Instructions Recorded Confirmed hydrocodone 5 mg-acetaminophen 325 1 tab PO Q6H PRN 03/19/22 05/10/23 mg tablet ondansetron HCl 4 mg tablet 4 mg PO Q6H PRN 03/19/22 hydrocodone 10 mg-acetaminophen 1 tab PO Q6-8H PRN chronic pain 08/24/23 08/24/23 325 mg tablet Previous Rx's Medication Instructions Recorded metformin 500 mg tablet See Rx Instructions .Route 06/03/22 .COMPLEX #270 tabs trazodone 150 mg tablet 150 mg PO .HS PRN insomnia #90 tabs 11/21/22 fluoxetine 20 mg capsule 60 mg (3 x 20 mg) PO QDAY #270 caps 01/19/23 albuterol sulfate 90 mcg/actuation 2 puff inhalation Q4H PRN 07/14/23 aerosol inhaler (Ventolin HFA) shortness of breath or wheezing #8.5 grams atorvastatin 40 mg tablet 40 mg PO QHS #90 tabs 05/14/23 lisinopril 20 mg tablet 20 mg PO QDAY #30 tabs 05/14/23 alprazolam 1 mg tablet 0.5 - 1 mg (0.5 - 1 x 1 mg) PO TID 07/07/23 PRN anxiety #30 tabs ondansetron 4 mg disintegrating 4 mg PO Q6H PRN nausea and 08/24/23 tablet vomiting #20 tabs Allergies Allergy/AdvReac Type Severity Reaction Status Date / Time vancomycin Allergy Unknown Verified 08/24/23 09:03 Review of Systems Status of ROS: Reports: 6 or more systems reviewed and unremarkable except as noted in History and below [facility] Medical History MATIAS on CPAP ?G47.33 - Obstructive sleep apnea (adult) (pediatric) (ICD-10) ?Z99.89 - Dependence on other enabling machines and devices (ICD-10) Obesity ?E66.9 - Obesity, unspecified (ICD-10) Latent autoimmune diabetes in adults, managed as type 2 ?E13.9 - Other specified diabetes mellitus without complications (ICD-10) Hypertension ?I10 - Essential (primary) hypertension (ICD-10) History of smoking ?Z87.891 - Personal history of nicotine dependence (ICD-10) Depression ?F32.A - Depression, unspecified (ICD-10) Concussion ?S06.0X9A - Concussion with loss of consciousness of unspecified duration, initial encounter (ICD-10) Chronic low back pain ?M54.50 - Low back pain, unspecified (ICD-10) ?G89.29 - Other chronic pain (ICD-10) Asthma ?J45.909 - Unspecified asthma, uncomplicated (ICD-10) Surgical History History of hysterectomy with oophorectomy History of cholecystectomy ?Z90.49 - Acquired absence of other specified parts of digestive tract (ICD-10) History of appendectomy ?Z90.49 - Acquired absence of other specified parts of digestive tract (ICD-10) Family History Unknown Diabetes Social History Smoking Status: Former smoker Do you use any of these nicotine containing products: None Second hand tobacco smoke exposure: No How often do you have a drink containing alcohol: monthly or less How many standard drinks containing alcohol do you have on a typical day: 1 or 2 How often do you have six or more drinks on one occasion: Never AUDIT-C Alcohol total score: 1 Non-prescribed substance use: denies use service: No Exam Const: Vital Signs, click to edit/add: Vital Signs - 24 hr 08/24/23 08:59 Temperature 97.7 F Pulse Rate [Left P ulse Oximeter] 53 L Blood Pressure [Le ft Upper Arm] 123/75 Pulse Oximetry 95 Oxygen Delivery Me thod Room Air Serina is a very pleasant 57-year-old female that is alert, interactive, no apparent distress. She is able to speak in complete sentences, voice is normal. Sclera clear, conjugate gaze. Lungs are clear, good air entry, no wheezing or crackles. CV regular rate and rhythm, no murmur, normal S1-S2, no S3-S4. Abdomen is obese but soft, she complains of mild diffuse tenderness without rebound or guarding everywhere in the abdomen except the left lower quadrant. Body habitus precludes easy evaluation for any masses but I did do not feel any to the best of my ability, do not appreciate organomegaly. Patient ambulatory into the ED of her own accord. Documenting provider has reviewed patient's vital signs: yes Course Course ED Course: Will initiate some IV fluids and IV Zofran for this patient. She would also like some water which I am fine for her to have. This sounds like it is a potential gastroenteritis or stomach process with nausea vomiting and diarrhea. She states she was coughing as well, making this more likely to be a viral process in my opinion. Will get baseline labs on her. This time do not feel she needs any imaging but would consider it if her white count is significantly elevated. This does not sound to be bowel obstruction given that she still having diarrhea and can tolerate fluids. Nursing staff did do a triple swab which is pending, need to collect UA as she certainly could have developed a UTI with underlying diarrhea. Reevaluation(s) Time of Reevaluation #1: 10:21 Reevaluation #1: Reviewed with patient that we are still awaiting her kidney and liver functions but the CBC, lactate, urinalysis are not showing any concerning abnormalities. We will obtain urine culture but I would not treat for UTI at this point based on her urinalysis. She is getting her IV fluids, just got IV Zofran. We will proceed with a flat and upright to ensure nothing like an ileus complicating a gastroenteritis. We did review negative triple swab. She could have a type of gastroenteritis like noro virus which can typically last longer. Time of Reevaluation #2: 10:48 Reevaluation #2: Patient requesting Tylenol, 1000 mg was ordered. Her comprehensive metabolic panel and C-reactive protein are showing no concerning change, normal. Flat and upright reviewed, I see no acute obstructive change, nothing suggestive of any ileus. Will await Radiology over-read. Time of Reevaluation #3: 11:43 Reevaluation #3: Patient is feeling better after the IV fluids in the nausea medicine. Her nausea has gone away. Reviewed that there is no concerning change on her comprehensive metabolic panel or her abdominal imaging with plain films. We are going to discharge to home for further outpatient management. She does not have Zofran at home, will send her some. She is aware if she is not improving over the next few days, or if worsening, will need re-evaluation. Vital Signs Vital signs: Initial Vital Signs Temperature 97.7 F 08/24/23 08:59 Temperature Source Temporal Artery Scan 08/24/23 08:59 Pulse Rate 53 L 08/24/23 08:59 Pulse Rhythm Regular 08/24/23 08:59 Blood Pressure 123/75 08/24/23 08:59 Blood Pressure Mean 91 08/24/23 08:59 Blood Pressure Position Semi-Fowlers 08/24/23 08:59 Pulse Oximetry 95 08/24/23 08:59 Oxygen Delivery Method Room Air 08/24/23 08:59 Vital Signs Temperature 97.7 F 08/24/23 08:59 Pulse Rate 53 L 08/24/23 08:59 Blood Pressure 123/75 08/24/23 08:59 Pulse Oximetry 95 08/24/23 08:59 Oxygen Delivery Method Room Air 08/24/23 08:59 Temperature 97.7 F 08/24/23 08:59 Pulse Rate 53 L 08/24/23 08:59 Blood Pressure 123/75 08/24/23 08:59 Pulse Oximetry 95 08/24/23 08:59 Oxygen Delivery Method Room Air 08/24/23 08:59 Medications Administered Medications: Discontinued Medications Generic Name Dose Route Start Last Admin Trade Name Santi PRN Reason Stop Dose Admin Acetaminophen 1,000 mg 08/24/23 10:47 08/24/23 10:50 Acetaminophen 500 Mg Tablet PO 08/24/23 10:48 1,000 mg ONCE ONE Administration Sodium Chloride 1,000 mls @ 1,000 mls/hr 08/24/23 09:27 08/24/23 11:30 0.9 % Sodium Chloride 1000 Ml IV 08/24/23 10:26 Infused .Q1H EDITH Infusion Ondansetron HCl 4 mg 08/24/23 09:26 08/24/23 09:50 Ondansetron 2 Mg/Ml Inj IVP 08/24/23 09:27 4 mg ONCE ONE Administration Medical Decision Making Lab Data Lab results reviewed: Yes I reviewed the patient's lab results Labs: Lab Results 08/24/23 08/24/23 08/24/23 Range/Units 09:10 09:50 09:55 WBC 4.88 (4.50-11.00) K/uL RBC 4.22 (4.00-5.20) m/uL Hgb 12.7 (12.0-16.0) gm/dL Hct 38.8 (33.0-51.0) % MCV 92 (80-100) fL MCH 30 (26-34) pg MCHC 33 (32-36) gm/dL RDW Coeff of Kathy 12.5 (11.5-15.5) % Plt Count 157 (140-440) K/uL Neut % (Auto) 57.7 (42.0-72.0) % Lymph % (Auto) 30.9 (20-44) % [place] % (Auto) 9.8 (0.0-11.0) % Eos % (Auto) 1.2 (0.0-7.0) % Baso % (Auto) 0.2 (0.0-3.0) % Neut # (Auto) 2.81 (1.7-7.0) K/uL Lymph # (Auto) 1.51 (0.90-2.90) K/uL [place] # (Auto) 0.50 (0.00-0.90) K/UL Eos # (Auto) 0.06 (0.00-0.50) K/uL Baso # (Auto) 0.01 (0.00-0.30) K/uL Abs Immat Gran (auto) 0.01 (0.00-0.30) K/uL Imm/Tot Granulo (auto) 0.2 % Sodium 142 (135-149) mmol/L Potassium 3.7 (3.6-5.1) mmol/L Chloride 108 (96-114) mmol/L Carbon Dioxide 25 (20-32) mmol/L Anion Gap 9 (7-15) mEq/L BUN 11 (7-30) mg/dL Creatinine 0.7 (0.5-1.5) mg/dL Estimated Creat Clear 81.71 Estimated GFR 102 ml/min Glucose 120 H (60-115) mg/dL Lactate 0.8 (0.5-1.9) mmol/L Calcium 8.7 (8.4-10.6) mg/dL Total Bilirubin 0.7 (0.1-1.5) mg/dL AST 27 (12-35) U/L ALT 27 (4-35) U/L Alkaline Phosphatase 77 (40-150) U/L C-Reactive Protein 0.5 (0.5-1.0) mg/dL Total Protein 6.8 (6.0-8.3) g/dL Albumin 4.0 (3.3-5.0) g/dL Urine Color Yellow (Yellow) Urine Appearance Clear (Clear) Urine pH 6.0 (5.0-8.5) Ur Specific [place] 1.010 (1.000-1.030) Urine Protein Negative (Negative) Urine Glucose (UA) Negative (Negative) Urine Ketones Negative (Negative) Urine Blood Negative (Negative) Urine Nitrite Negative (Negative) Urine Bilirubin Negative (Negative) Urine Urobilinogen 0.2 (0.2-1.0) Ur Leukocyte Esterase Negative (Negative) Urine RBC 0-2 (0-2) Urine WBC 0-2 (0-5) Ur Squamous Epith Cells Few (None-Few) Urine Bacteria None (None) SARS-CoV-2 (PCR) Negative SARS-CoV-2 (Negative) Influenza Type A (PCR) Negative PCR FLU A (Negative) Influenza Type B (PCR) Negative PCR FLU B (Negative) RSV (PCR) Negative PCR RSV (Negative) Imaging Data Abdominal x-ray: Attestation: I have reviewed the pertinent imaging results. My impression: No evidence of any obstructive pathology, do not appreciate ileus on my preliminary review. Radiologist's impression: Patient: SERINA KAHN Facility:?[facility] Patient ID:?[id number] Site Patient ID:?[id number]. Site :?[id number] Study:?XRay Abdomen/Pelvis 2 VIEW-08/24/2023 10:45:21 AM Ordering Physician:Danae Castillo Final Report: INDICATION: Knot of vomiting and diarrhea. TECHNIQUE: Two views. IMPRESSION: Nonobstructive bowel gas pattern. Cholecystectomy clips. No significant bone finding. Lung bases are clear. Some degenerative disc height loss and osteophytes L1-2. Possible minor dextroscoliosis at this level. Dictated by Jeff Zimmer MD @ 08/24/2023 11:39:27 AM (Electronic Signature) Critical Care Time Critical Care Time Critical Care Time: No Discharge Plan Discharge Clinical Impression: Gastroenteritis and colitis, viral Patient Disposition: Home, Self-Care Condition: Stable Instructions: Acute Nausea and Vomiting (ED), Acute Diarrhea (ED), Nutrition Tips for Relief of Diarrhea (ED) Additional Instructions: Can use Zofran as prescribed to help you take in fluids. Follow the handouts provided, review for dietary recommendations. As you feel better, may advance her diet back to normal. If you are not improving over the next few days, feel you are worsening at any point, develops abdominal pain associated with increased vomiting or fever, do recommend re-evaluation. Activity Level: Activity as Tolerated Prescriptions: New ondansetron 4 mg tablet,disintegrating 4 mg PO Q6H PRN (Reason: nausea and vomiting) Qty: 20 0RF No Action hydrocodone-acetaminophen 10-325 mg tablet 1 tab PO Q6-8H PRN (Reason: chronic pain) ondansetron HCl 4 mg tablet 4 mg PO Q6H PRN hydrocodone-acetaminophen 5-325 mg tablet 1 tab PO Q6H PRN metformin 500 mg tablet See Rx Instructions .ROUTE .COMPLEX Qty: 270 3RF Dose Instruction: TAKE 1 TABLET BY MOUTH EVERY MORNING AND TAKE 2 TABLETS BY MOUTH AT SUPPER(TAKE WITH FOOD) Rx Instructions: TAKE 1 TABLET BY MOUTH EVERY MORNING AND TAKE 2 TABLETS BY MOUTH AT SUPPER(TAKE WITH FOOD) trazodone 150 mg tablet 150 mg PO .HS PRN (Reason: insomnia) Qty: 90 3RF fluoxetine 20 mg capsule 60 mg PO QDAY Qty: 270 2RF albuterol sulfate [Ventolin HFA] 90 mcg/actuation HFA aerosol inhaler 2 puff inhalation Q4H PRN (Reason: shortness of breath or wheezing) Qty: 8.5 6RF atorvastatin 40 mg tablet 40 mg PO QHS Qty: 90 3RF lisinopril 20 mg tablet 20 mg PO QDAY Qty: 30 5RF alprazolam 1 mg tablet 0.5 - 1 mg PO TID PRN (Reason: anxiety) Qty: 30 1RF Follow Up/Referrals: Ned Aquino MD [Primary Care Provider] - Stand Alone Forms: [facility] Info Instructions
--- OUTSIDE RECORDS SUMMARY | 2023-08-24 09:34 | XMS_ITS | Clinical Summary ---
Author Name Unknown Organization [facility] Address [address] [place] [address] Care Team Providers Care Db2 Systems Programmer Name Role Phone Erlin Aquino MD Primary Care Provider [phone] Source Comments You are receiving this document as you are listed as the primary care provider,follow-up provider, or the patient has been referred to you for consultation.This is in compliance with the Medicare and[facility] EHR Incentive Program,which states Providers who transition their patient to another setting of careor provider of care or refers their patient to another provider of care shouldprovide summary care record for each transition of care or referral. [facility] Allergies Active Allergy Reactions Criticality Noted Date Comments Vancomycin Edema,generalized 05/25/2018 Medications Medication Sig Dispensed Refills Start Date End Date Status VENTOLIN HFA 108 (90 Base) MCG/ACT inhaler INL 1 TO 2 PFS PO QID PRN 11 04/08/2018 Active oxyCODONE-acetaminoph en (PERCOCET) 5-325 MG tablet TK 1 - 2 TS PO Q 4 - 6 H PRN. NM4 0 05/10/2018 Active FLUoxetine (PROZAC) 40 MG capsule Take 40 mg by mouth daily. 0 Active metoprolol succinate (TOPROL XL) 100 MG 24 hour release tabletIndications:Hyp ertension Take 100 mg by mouth daily. Indications: High Blood Pressure Disorder 0 Active buPROPion (WELLBUTRIN XL) 150 MG 24 hour release tablet Take 150 mg by mouth daily. 0 08/06/2018 Active traZODone (DESYREL) 150 MG tablet 0 08/06/2018 Active omeprazole (PRILOSEC) 20 MG capsule Take 1 Capsule by mouth daily for 90 days. Take 1 hour before a meal. 90 Capsule 0 12/28/2018 Active Pediatric Wglajbpi-Yepmhdam-I (CHEWABLES MULTIVITAMIN OR) Take 1 Dose by mouth daily. 0 Active cholecalciferol (VITAMIND3) 2000 units tablet Take 2,000 Units by mouth daily. 0 Active Cyanocobalamin (VITAMIN B-12) [address] 1,000 mcg under tongue once a week. 0 Active CALCIUM CARBONATE OR Take 600 mg by mouth daily. 0 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 Overview: PLEASE DO NOT SCHEDULE ELECTIVE SURGERY FOR 30 DAYS, UNTIL AFTER 01/27/2019 Morbid obesity with BMI of 50.0-59.9, adult 11/25 Overview: Added automatically from request for surgery [id number] Obstructive sleep apnea 05/25/2018 Overview: Setting: AutoPAP 5-20 cmH20 Supplied by: Rhiannon COLMENARES PSG done: [facility] RDI Lowest O2 Sat: Bariatric Hypertension 05/25/2018 Morbid obesity with BMI of 45.0-49.9, adult 04/28 Type 2 diabetes mellitus without complications 1 Joint pain 05/25/2018 Social History Tobacco Use Types Packs/Day Years Used Date Smoking Tobacco: Former Cigarettes 0.5 10 Smokeless Tobacco: Never Alcohol Use Standard Drinks/Week Comments Never 0 (1 standard drink = 0.6 oz pur e alcohol) AUDIT-C Answer Date Recorded Frequency of Alcohol Consumption Never 11/21/2018 Average Number of Drinks Not on file 019 Frequency of Binge Drinking Not on file 10/27 Sex and Gender Information Value Date Recorded Sex Assigned at Not on file Gender Identity Not on file Sexual Orientation Not on file Last Filed Vital Signs Vital Sign Reading Time Taken Comments Blood Pressure 143/71 02/10/2019 2:51 PM CDT Pulse 53 02/10/2019 2:51 PM CDT Temperature 37 ??C (98.6 ??F) 12/30/2018 5:10 PM CDT Respiratory Rate 18 12/30/2018 5:10 PM CDT Oxygen Saturation 97% 12/30/2018 5:10 PM CDT Inhaled Oxygen Concentration - - Weight 120.4 kg (265 lb 8 oz) 02/10/2019 2:51 PM CDT Height 162.6 cm (5' 4) 02/10/2019 2:51 PM CDT Body Mass Index 45.57 02/10/2019 2:51 PM CDT Plan of Treatment Health Maintenance Due Date Last Done Comments Cervical Cancer Screening Due 1965 Colon Cancer Screening Plan Due 1965 Diabetes: Eye Exam 1965 Diabetes: Foot Exam 1965 Diabetes: Urine Microalbumin 1965 Hep C Screening (Preventive Services) 1967 HepB (1) 1965 Mammogram 1967 COVID-19 Vaccine (#1) 03/08/1968 HIV Screening (Preventive Services) 1983 Adult Preventive Visit 1985 Zoster/Shingles (1 of 2) 2017 Diabetes: HGBA1C 09/01/2018 06/01/2018 Pneumococcal (2 - PCV) 10/08/2018 10/08/2017 Diabetes: Creatinine 06/01/2019 06/01/2018 Influenza (#1) 2023 04/08/2020, 04/27, 04/25/2015, Additional history exists Diabetes: Lipid Panel 06/01/2023 06/01/2018 DTaP/Tdap/Td (2 - Tdap) 11/30/2024 11/30/2014 HepA Aged Out No longer eligi ble based on patient's age to complete this topic Hib Aged Out No longer eligi ble based on patient's age to complete this topic IPV (Polio) Aged Out No longer eligi ble based on patient's age to complete this topic MCV4 Aged Out No longer eligi ble based on patient's age to complete this topic Advance Directives Latest Code Status on File Code Status Date Activated Date Inactivated Comments Full Code 12/28/2018 8:30 PM 12/30/2018 7:59 PM Care Teams Db2 Systems Programmer Relationship Specialty Start Date End Date Erlin Aquino MD [facility] [address] [place] [address] PCP - General Family Practice 12/28/18
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
[2023-08-24] MEDS: 0.9 % SODIUM CHLORIDE 1000 ml 1,000 ML IV (09:49)
[2023-08-24] MEDS: ONDANSETRON 2 MG/ML inj 4 MG IVP (09:50)
[2023-08-24 09:59] LABS: Lactate* 0.8 mmol/L (0.5-1.9)
[2023-08-24 10:01] LABS: PCR FLU A Negative PCR FLU A (Negative); PCR FLU B Negative PCR FLU B (Negative); PCR RSV Negative PCR RSV (Negative); SARS PCR* Negative SARS-CoV-2 (Negative)
[2023-08-24 10:01] LABS: Appearance Urine Clear (Clear); Bilirubin Urine Negative (Negative); Blood Urine Negative (Negative); Color Urine Yellow (Yellow); Glucose Urine Negative (Negative); Ketones Urine Negative (Negative); Leukocyte Esterase Urine Negative (Negative); Nitrite Urine Negative (Negative); Protein Urine Negative (Negative); Urobilinogen Urine 0.2 (0.2-1.0)
[2023-08-24 10:03] LABS: Basophils Absolute Auto 0.01 K/uL (0.00-0.30); Basophils Percent Auto 0.2 % (0.0-3.0); Eosinophils Absolute Auto 0.06 K/uL (0.00-0.50); Eosinophils Percent Auto 1.2 % (0.0-7.0); Hematocrit 38.8 % (33.0-51.0); Hemoglobin* 12.7 gm/dL (12.0-16.0); Immature Granulocytes Abs Auto 0.01 K/uL (0.00-0.30); Immature Granulocytes Pct Auto 0.2 %; Lymphocytes Absolute Auto 1.51 K/uL (0.90-2.90); Lymphocytes Percent Auto 30.9 % (20-44); Mean Corpuscular HGB Conc 33 gm/dL (32-36); Mean Corpuscular Hemoglobin 30 pg (26-34); Mean Corpuscular Volume 92 fL (80-100); Monocytes Percent Auto 9.8 % (0.0-11.0); Neutrophils Absolute Auto 2.81 K/uL (1.7-7.0); Neutrophils Percent Auto 57.7 % (42.0-72.0); Platelet Count* 157 K/uL (140-440); RDW Coefficient of Variation % 12.5 % (11.5-15.5); Red Blood Count 4.22 m/uL (4.00-5.20); White Blood Count* 4.88 K/uL (4.50-11.00)
[2023-08-24 10:04] LABS: Slide Review Reflex No
[2023-08-24 10:15] LABS: RBC Urine 0-2 (0-2); Squamous Epithelial Cell Urine Few (None-Few); WBC Urine 0-2 (0-5)
--- NOTE | 2023-08-24 10:15 | CRLHL7_ITS ---
For Patients: As a result of the Century Cures Act, medical imaging exams and procedure reports are released immediately into your electronic medical record. You may view this report before your referring provider. If you have questions, please contact your health care provider. INDICATION: Knot of vomiting and diarrhea. TECHNIQUE: Two views. IMPRESSION: Nonobstructive bowel gas pattern. Cholecystectomy clips. No significant bone finding. Lung bases are clear. Some degenerative disc height loss and osteophytes L1-2. Possible minor dextroscoliosis at this level. Dictated by Jeff Zimmer MD @ 08/24/2023 11:39:27 AM (Electronically Signed)
[2023-08-24 10:20] LABS: Chloride* 108 mmol/L (96-114); Potassium* 3.7 mmol/L (3.6-5.1); Sodium* 142 mmol/L (135-149)
[2023-08-24 10:22] LABS: Creatinine* 0.7 mg/dL (0.5-1.5); Est. Creatinine Clearance* 81.71; Estimated Glomerular Filt Rate 102 ml/min
[2023-08-24 10:23] LABS: Alanine Aminotransferase* 27 U/L (4-35); Alkaline Phosphatase* 77 U/L (40-150); Anion Gap 9 mEq/L (7-15); Aspartate Amino Transferase* 27 U/L (12-35); Bilirubin Total* 0.7 mg/dL (0.1-1.5); Blood Urea Nitrogen* 11 mg/dL (7-30); Carbon Dioxide* 25 mmol/L (20-32); Glucose* 120 mg/dL (60-115); Total Protein* 6.8 g/dL (6.0-8.3)
[2023-08-24 10:24] LABS: Calcium* 8.7 mg/dL (8.4-10.6)
[2023-08-24 10:26] LABS: C Reactive Protein* 0.5 mg/dL (0.5-1.0)
[2023-08-24] MEDS: ACETAMINOPHEN 500 MG TABLET 1000 MG PO (10:50)
== END 2023-08-24 12:02 | disposition home or self-care (01) ==
PROVIDERS: Emergency Provider Family Medicine; PCP Family Medicine
DX: K52.9 Noninfective gastroenteritis and colitis, unspecified (principal)
CPT/HCPCS: 36415; 74019; 80053; 81001; 83605; 85025; 86140; 87631; 96361; 96374; 99284; A9270; J2405; J7030

== ENCOUNTER 2023-11-21 11:58 | Outpatient (CLI) | payer MEDICAID, SELFPAY ==
--- OUTSIDE RECORDS SUMMARY | 2023-11-21 12:04 | XMS_ITS | Clinical Summary ---
Author Name Unknown Organization [facility] Address [place], [place] [address] Care Team Providers Care Knife Sharpener Name Role Phone Heather Benitez Primary Primary [...] 4 times daily if needed. 1 Inhaler prn 01/12/2016 Active zolpidem (AMBIEN) 10 mg tabletIndications:Ins [...] TABLET BY MOUTH EVERY MORNING 30 tablet 09/24/2016 Active metoprolol succinate (TOPROL XL) 100 mg Sustained-Release tabletIndications:Hyp ertension TAKE 1 TABLET BY MOUTH EVERY DAY 30 tablet 11/18/2016 Active oxyCODONE-acetaminoph en, 5-325 mg, (PERCOCET) 5-325 mg per tabletIndications:Kim sed nondisplaced fracture of second metatarsal bone of right foot, initial encounter Take 1 tablet by mouth every 4 hours if needed for Pain 90 tablet 01/24/2017 Active albuterol HFA (VENTOLIN HFA) 90 [...] on file and signed 10/28/2012. Designated pharmacy: [facility] Prescribing physician: dr jordy roque Diagnosis: lumbar facet arthritis Iron Deficiency Anemia 01/17/200901/25 Immunizations Name Administration Dates Next Due Influenza, IIV4 04/25/2015 Tdap 11/30/2014 Family History Medical History Relation Name Comments Diabetes Father Hyperlipidemia Father Hypertension Father Hypertension Mother Other Mother CPAP Cancer Paternal Grandmother lung ca ncer Heart Disease Paternal Grandmother [place] Hypertension Paternal Grandmother Relation Name Status Comments [...] T Respiratory Rate 16 07/15/2014 10:44 AM CRTTS Oxygen Saturation 98% 09/26/2015 2:00 PM CRTTS Inhaled Oxygen Concentration - - Weight 114.3 kg (252 lb) 09/26/2015 2:00 PM CRTTS Height 165.6 cm (5' 5.2) 09/26/2015 2:00 PM CRTTS Body Mass Index 41.68 09/26/2015 2:00 PM CRTTS Plan of Treatment Health Maintenance Due Date Last Done Comments HIV for age 15-65 1982 Hepatitis C screening for ag e 18-79 1985 Colonoscopy through age 75 2012 Mammogram for age 45-75 2012 Depression screening for age 12+ 08/29/2016 08/29/2015 BMI (ht and wt on same day) for age 18+ 09/25/2016 09/26/2015, 08/29/2015 Zoster (shingles) series for age 50+ (1 of 2) 2017 Lipids for age 45-75 04/20/2019 04/20/2014 COVID-19 vaccine series (2022-24 season) 2023 Influenza for age 50-64 03/28/2024 04/25/2015 Tetanus booster 11/30/2024 11/30/2014 Tdap Completed 11/30/2014 Pneumococcal series for age 6-64 Aged Out No longer eligible b ased on patient's age to complete this topic Procedures Procedure Name Priority Date/Time Associated Diagnosis Comments LIPID PANEL W REFLEX MEASURED LDL Routine 04/20/2014 8:31 AM CDT Health Maintainence from Last 3 Months or Most Recently Relevant to Health Maintenance Results * (ABNORMAL) LIPID PANEL W REFLEX MEASURED LDL (04/20/2014 8:31 AM CDT) CHOLESTEROL,TOTAL 176 100 - 199 mg/dL 04/20/2014 1:[address] [facility] TRIGLYCERIDES 80 <150 mg/dL 04/20/2014 1:31 PM CDT [facility] HDL CHOLESTEROL 39(L) >40 mg/dL 4 1:31 PM CDT [facility] NON-HDL CHOLESTEROL 137 <145 mg/dl 04/20/2014 1:31 PM CDT [facility] CHOL/HDL RATIO 4.51(H) <4.50 04/20/2014 1:31 PM CDT [facility] LDL CHOLESTEROL 121 <=130 mg/dL 04/20/2014 1:31 PM CDT [facility] PATIENT STATUS FASTING 04/20/2014 1:31 PM CDT [facility] Blood specimen (specimen) BLOOD SPECIMEN / Unknown Venipuncture / Unknown 04/20/2014 8:31 AM CDT 04/20/2014 8:31 AM CDT Johnathan BLACKWELL CHEMISTR[facility] [address] [place] [address], [place] from Last 3 Months or Most Recently Relevant to Health Maintenance Advance Directives * Full Code (Latest Code Status on File) Date Activated Date Inactivated Comments 05/22/2008 10:37 AM 05/24/2008 7:08 PM Care Teams Knife Sharpener Relationship Specialty Start Date End Date , No Primary . PCP - General 08/29/15
--- OUTSIDE RECORDS SUMMARY | 2023-11-21 12:04 | XMS_ITS | Clinical Summary ---
Author Name Unknown Organization [facility] Address [address] [place] [address] Care Team Providers Care Relay Assembler Name Role Phone Erlin Aquino MD Primary Care Provider [phone] Source Comments You are receiving this document as you are listed as the primary care provider,follow-up provider, or the patient has been referred to you for consultation.This is in compliance with the Medicare and[facility] EHR Incentive Program,which states Providers who transition their patient to another setting of careor provider of care or refers their patient to another provider of care shouldprovide summary care record for each transition of care or referral. [facility] Allergies Active Allergy Reactions Criticality Noted Date [...] capsule Take 40 mg by mouth daily. Active metoprolol succinate (TOPROL XL) 100 MG 24 hour release tabletIndications:Hyp ertension Take 100 mg by mouth daily. Indications: High Blood Pressure Disorder Active buPROPion (WELLBUTRIN XL) 150 MG 24 hour release tablet Take 150 mg by mouth daily. 08/06/2018 Active traZODone (DESYREL) 150 MG tablet 08/06/2018 Active omeprazole (PRILOSEC) 20 MG capsule Take 1 Capsule by mouth daily for 90 days. Take 1 hour before a meal. 90 Capsule 12/28/2018 Active Pediatric Erradudh-Auzecwdb-O (CHEWABLES MULTIVITAMIN OR) Take 1 Dose by mouth daily. Active cholecalciferol (VITAMIND3) 2000 units tablet Take 2,000 Units by mouth daily. Active Cyanocobalamin (VITAMIN B-12) [address] 1,000 mcg under tongue once a week. Active CALCIUM CARBONATE OR Take 600 mg by mouth daily. 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 Overview: PLEASE DO NOT SCHEDULE ELECTIVE SURGERY FOR 30 DAYS, UNTIL AFTER 01/27/2019 Morbid obesity with BMI of 50.0-59.9, adult 11/25 Overview: Added automatically from request for surgery [id number] Obstructive sleep apnea 05/25/2018 Overview: Setting: AutoPAP [...] 1967 Hep C Screening (Preventive Services) 1967 Mammogram 1967 HIV Screening (Preventive Services) 1983 Adult Preventive Visit 1985 HepB (1) 1986 Zoster/Shingles (1 of 2) 2017 Diabetes: HGBA1C 09/01/2018 06/01/2018 Pneumococcal (2 - PCV) 10/08/2018 10/08/2017 Diabetes: Creatinine 06/01/2019 06/01/2018 COVID-19 Vaccine ( season) 2023 12/06/2020, 11/08/2020 Influenza (#1) 2023 04/08/2020, 04/27, 04/25/2015, Additional [...] Procedure Name Priority Date/Time Associated Diagnosis Comments CREATININE / GFR Routine 06/01/2018 9:34 AM BARREL RIFLER OPERATOR Personal history of endocrine disorder LIPID PANEL & DIRECT LDL (IF NEEDED) Routine 06/01/2018 9:34 AM BARREL RIFLER OPERATOR Personal history of endocrine disorder HGB A1C Routine 06/01/2018 9:34 AM BARREL RIFLER OPERATOR Personal history of endocrine disorder from Last 3 Months or Most Recently Relevant to Health Maintenance Results * Lipid Panel and Direct LDL(If Needed) (06/01/2018 9:34 AM BARREL RIFLER OPERATOR) Cholesterol 167 0 - 199 mg/dL PN SOFT Triglycerides 76 4 - 149 mg/dL PN SOFT HDL Cholesterol 49 >39 mg/dL PN SOFT Cholesterol/HDL Ratio Screen 3.4 PN SOFT LDL Calculated 103 19 - 130 mg/dL PN SOFT Non HDL Chol, Calc 118 0 - 159 mg/dL PN SOFT Hours Fasting 12.0 PN SOFT 06/01/2018 9:34 AM BARREL RIFLER OPERATOR 06/01/2018 9:34 AM BARREL RIFLER OPERATOR Narrative PN SOFT - 06/01/2018 12:38 PM BARREL RIFLER OPERATOR [place] [address] CLIA number [id number] Linda Dia PA-C LAB_1 PN SOFT [address] [place], [place] [address] * Creatinine / GFR (06/01/2018 9:34 AM BARREL RIFLER OPERATOR) Creatinine Serum 0.70 0.55 - 1.02 mg/dL PN SOFT Est GFR Am >60 >60 mL/min/1.7 3m2 PN SOFT Est GFR Non-Afr Am >60 >60 mL/min/1.7 3m2 PN SOFT Comment: Normal>60, moderate decrease 30 - 59, severe decrease 15 - 29, renal failure <15 mL/min/1.73 m2 NOTE: ??Choose the eGFR result above appropriate for the race of the patient. 06/01/2018 9:34 AM BARREL RIFLER OPERATOR 06/01/2018 9:34 AM BARREL RIFLER OPERATOR Narrative PN SOFT - 06/01/2018 12:38 PM BARREL RIFLER OPERATOR [place] [address] CLIA number [id number] Linda Dia YOLANDA-C LAB_1 Performing Organization Address [facility] Co de Phone Number PN SOFT [address] [place] [address] * (ABNORMAL) Hgb A1c (06/01/2018 9:34 AM BARREL RIFLER OPERATOR) HGB A1C 6.4(H) 4.0 - 5.6 % PN SOFT 06/01/2018 9:34 AM BARREL RIFLER OPERATOR 06/01/2018 12:02 PM BARREL RIFLER OPERATOR Narrative PN SOFT - 06/01/2018 3:05 PM BARREL RIFLER OPERATOR Performed at [address] [address] CLIA number [id number] Linda GUERRERO-C LAB_1 Performing Organization Address [facility] de Phone Number PN SOFT [address] [place] [address] from Last 3 Months or Most Recently Relevant to Health Maintenance Advance Directives * Full Code (Latest Code Status on File) Date Activated Date Inactivated Comments 12/28/2018 8:30 PM 12/30/2018 7:59 PM Care Teams Relay Assembler Relationship Specialty Start Date End Date Erlin Aquino MD [facility] [address] [place] [id number] PCP - General Family Practice 12/28/18
== END 2023-11-21 11:59 | disposition home or self-care (01) ==
PROVIDERS: PCP Family Medicine; Visit Provider Family Medicine
DX: I65.23 Occlusion and stenosis of bilateral carotid arteries (principal); Z13.29 Encounter for screening for other suspected endocrine disorder; Z13.220 Encounter for screening for lipoid disorders
CPT/HCPCS: 80061; 84443

== ENCOUNTER 2023-12-06 06:44 | Emergency (ER) | payer MEDICAID, SELFPAY ==
[2023-12-06 06:56] VITALS: BP 153/85; PULSE 76; RESP 20; TEMP 36.6; O2SAT 99; BMI 41.3
--- NOTE | 2023-12-06 06:57 | ED_ITS ---
HPI - General Adult General Chief complaint: Unspecified Complaint, Adult Stated complaint: thinks they have a sinus infection Time Seen by Provider: 12/06/23 06:57 History of Present Illness HPI narrative: Patient is a 58-year-old woman who comes in with left-sided ear pain and sinus congestion. Unfortunately smokes tobacco. She does symptoms for last 2-3 days. She has had no fevers no chills no night sweats no cough no shortness of breath. She has otherwise been feeling reasonably well. She has had no similar symptoms previously no sick contacts. Pain is moderate. Related Data Home Medications Medication Instructions Recorded Confirmed hydrocodone 5 mg-acetaminophen 325 1 tab PO Q6H PRN 03/19/22 12/06/23 mg tablet hydrocodone 10 mg-acetaminophen 1 tab PO Q6-8H PRN chronic pain 08/24/2312/05 325 mg tablet Previous Rx's Medication Instructions Recorded metformin 500 mg tablet See Rx Instructions .Route 06/03/22 .COMPLEX #270 tabs albuterol sulfate 90 mcg/actuation 2 puff inhalation Q4H PRN 02/07/23 aerosol inhaler (Ventolin HFA) shortness of breath or wheezing #8.5 grams atorvastatin 40 mg tablet 40 mg PO QHS #90 tabs 05/14/23 ondansetron 4 mg disintegrating 4 mg PO Q6H PRN nausea and 08/24/23 tablet vomiting #20 tabs lisinopril 20 mg tablet 20 mg PO QDAY #90 tabs 11/20/23 tirzepatide (weight loss) 2.5 2.5 mg (0.5 mL) subcut QWEEK 4 11/21/23 mg/0.5 mL subcutaneous pen weeks #2 mL injector (Zepbound) blood sugar diagnostic (Accu-Chek #200 ea 11/24/23 Guide test strips) blood-glucose meter (Accu-Chek #1 ea 11/24/23 Guide Glucose Meter) lancets (Accu-Chek Softclix #200 ea 11/24/23 Lancets) alprazolam 1 mg tablet See Rx Instructions PO .ud PRN 12/02/23 anxiety #30 tabs trazodone 150 mg tablet 150 mg PO .HS PRN insomnia #90 tabs 12/02/23 fluoxetine 20 mg capsule 60 mg (3 x 20 mg) PO QDAY #270 caps 12/05/23 Allergies Allergy/AdvReac Type Severity Reaction Status Date / Time vancomycin Allergy Unknown Verified 12/06/23 06:56 Review of Systems Status of ROS: Reports: 10 or more systems reviewed and unremarkable except as noted in History and below [facility] Medical History History of smoking ?Z87.891 - Personal history of nicotine dependence (ICD-10) Concussion ?S06.0X9A - Concussion with loss of consciousness of unspecified duration, initial encounter (ICD-10) Surgical History History of hysterectomy with oophorectomy History of cholecystectomy ?Z90.49 - Acquired absence of other specified parts of digestive tract (ICD- 10) History of appendectomy ?Z90.49 - Acquired absence of other specified parts of digestive tract (ICD- 10) Family History Unknown Diabetes Social History Smoking Status: Former smoker Do you use any of these nicotine containing products: None Second hand tobacco smoke exposure: No How often do you have a drink containing alcohol: monthly or less How many standard drinks containing alcohol do you have on a typical day: 1 or 2 How often do you have six or more drinks on one occasion: Never AUDIT-C Alcohol total score: 1 Non-prescribed substance use: denies use Little interest or pleasure in doing things: not at all Feeling down, depressed, or hopeless: not at all service: No Exam Narrative: Exam Narrative: EXAM GENERAL: Patient appears comfortable and well. EYES: No scleral icterus. ENT: Right tympanic membrane is normal left tympanic membrane shows dullness and erythema sinus tenderness noted maxillary sinuses bilaterally. THYROID: no thyroid nodules or thyromegaly. LYMPH: No supraclavicular or cervical lymphadenopathy. SKIN: Visible skin seen during exam normal or with benign process only. EXT: No dependent lower extremity pedal edema. HEART: Regular rate and rhythm with no murmurs, rubs, or gallops. LUNGS: Clear to auscultation bilaterally with no crackles or wheezes. ABD: Soft, non tender, non distended. PSYCH: Good eye contact, speech is not pressured. Course Course ED Course: Patient seen and examined. Medical Decision Making MDM Narrative Medical decision making narrative: Patient is a 58-year-old woman who presents with sinus tenderness left-sided ear pain. She is sinusitis and otitis media on exam. She otherwise has a normal exam. This time will treat with Zithromax Neti pot and smoking cessation. Tylenol and Motrin. Differential diagnosis includes but not limited to otitis media otitis externa sinusitis pharyngitis bronchiolitis viral syndrome. Discharge Plan Discharge Clinical Impression: Otitis media Patient Disposition: Home, Self-Care Condition: Stable Instructions: Ear Infection (ED) Additional Instructions: Zithromax as directed Neti pot as directed Tylenol Motrin Rest Fluids Smoking cessation Activity Level: No Restrictions Discharge Diet: Regular Prescriptions: No Action Zepbound 2.5 mg/0.5 mL pen injector 2.5 mg subcut QWEEK 28 Days Qty: 2 0RF hydrocodone-acetaminophen 10-325 mg tablet 1 tab PO Q6-8H PRN (Reason: chronic pain) ondansetron 4 mg tablet,disintegrating 4 mg PO Q6H PRN (Reason: nausea and vomiting) Qty: 20 0RF hydrocodone-acetaminophen 5-325 mg tablet 1 tab PO Q6H PRN metformin 500 mg tablet See Rx Instructions .ROUTE .COMPLEX Qty: 270 3RF Dose Instruction: TAKE 1 TABLET BY MOUTH EVERY MORNING AND TAKE 2 TABLETS BY MOUTH AT SUPPER(TAKE WITH FOOD) Rx Instructions: TAKE 1 TABLET BY MOUTH EVERY MORNING AND TAKE 2 TABLETS BY MOUTH AT SUPPER(TAKE WITH FOOD) albuterol sulfate [Ventolin HFA] 90 mcg/actuation HFA aerosol inhaler 2 puff inhalation Q4H PRN (Reason: shortness of breath or wheezing) Qty: 8.5 6RF atorvastatin 40 mg tablet 40 mg PO QHS Qty: 90 3RF lisinopril 20 mg tablet 20 mg PO QDAY Qty: 90 3RF (DME) blood-glucose meter [Accu-Chek Guide Glucose Meter] Misc See Rx Instructions .Route Qty: 1 0RF Rx Instructions: As directed (DME) Accu-Chek Guide test strips Strip See Rx Instructions .Route Qty: 200 0RF Rx Instructions: use to test blood sugar twice daily (DME) lancets [Accu-Chek Softclix Lancets] Misc See Rx Instructions .Route Qty: 200 0RF Rx Instructions: Use to test blood sigar twice daily trazodone 150 mg tablet 150 mg PO .HS PRN (Reason: insomnia) Qty: 90 1RF alprazolam 1 mg tablet See Rx Instructions PO .ud PRN (Reason: anxiety) Qty: 30 0RF Rx Instructions: 0.5-1 mg tid prn orally UD PRN; fluoxetine 20 mg capsule 60 mg PO QDAY Qty: 270 1RF Follow Up/Referrals: Ned Aquino MD [Primary Care Provider] - Stand Alone Forms: [employer] Info Instructions
--- OUTSIDE RECORDS SUMMARY | 2023-12-06 06:58 | XMS_ITS | Clinical Summary ---
Author Name Unknown Organization [employer] [facility] [employer] Address [place], [place] [address] Care Team Providers Care Hull Inspector Name Role Phone Heather Benitez Primary Primary [...] on file and signed 10/28/2012. Designated pharmacy: [facility] Prescribing physician: dr jordy roque Diagnosis: lumbar facet arthritis Iron Deficiency Anemia 01/17/200901/25 Immunizations Name Administration Dates Next Due Influenza, IIV4 04/25/2015 Tdap 11/30/2014 Family History Medical History Relation Name Comments Diabetes Father Hyperlipidemia Father Hypertension Father Hypertension Mother Other Mother CPAP Cancer Paternal Grandmother lung ca ncer Heart Disease Paternal Grandmother [place] Hypertension Paternal Grandmother Relation Name Status Comments [...] T Respiratory Rate 16 07/15/2014 10:44 AM BOND MANAGER Oxygen Saturation 98% 09/26/2015 2:00 PM BOND MANAGER Inhaled Oxygen Concentration - - Weight 114.3 kg (252 lb) 09/26/2015 2:00 PM BOND MANAGER Height 165.6 cm (5' 5.2) 09/26/2015 2:00 PM BOND MANAGER Body Mass Index 41.68 09/26/2015 2:00 PM BOND MANAGER Plan of Treatment Health Maintenance Due Date [...] - 199 mg/dL 04/20/2014 1:31 PM CDT [facility] TRIGLYCERIDES 80 <150 mg/dL 04/20/2014 1:31 PM CDT [facility] HDL CHOLESTEROL 39(L) >40 mg/dL 4 1:31 PM CDT [facility] NON-HDL CHOLESTEROL 137 <145 mg/dl 04/20/2014 1:31 PM CDT [facility] CHOL/HDL RATIO 4.51(H) <4.50 04/20/2014 1:31 PM CDT [facility] LDL CHOLESTEROL 121 <=130 mg/dL 04/20/2014 1:31 PM CDT [facility] PATIENT STATUS FASTING 04/20/2014 1:31 PM CDT [facility] Blood specimen (specimen) BLOOD SPECIMEN / Unknown Venipuncture / Unknown 04/20/2014 8:31 AM CDT 04/20/2014 8:31 AM CDT Johnathan BLACKWELL CHEMISTRY [facility] [address] [place] [address], [place] from Last 3 Months or Most Recently Relevant to Health Maintenance Advance Directives * Full Code (Latest Code Status on File) Date Activated Date Inactivated Comments 05/22/2008 10:37 AM 05/24/2008 7:08 PM Care Teams Hull Inspector Relationship Specialty Start Date End Date , No Primary . PCP - General 08/29/15
--- OUTSIDE RECORDS SUMMARY | 2023-12-06 06:58 | XMS_ITS | Clinical Summary ---
Author Name Unknown Organization [facility] Address [address] [place] [address] Care Team Providers Care Parking Enforcement Specialist Name Role Phone Erlin Aquino MD Primary Care Provider [phone] Source Comments You are receiving this document as you are listed as the primary care provider,follow-up provider, or the patient has been referred to you for consultation.This is in compliance with the Medicare and[facility] EHR Incentive Program,which states Providers who transition their patient to another setting of careor provider of care or refers their patient to another provider of care shouldprovide summary care record for each transition of care or referral. [facility] Allergies Active Allergy Reactions Criticality Noted Date [...] a meal. 90 Capsule 12/28/2018 Active Pediatric Wbiyogyz-Binhgrgp-F (CHEWABLES MULTIVITAMIN OR) Take 1 Dose by [...] Overview: Added automatically from request for surgery [id number] Obstructive sleep apnea 05/25/2018 Overview: Setting: AutoPAP [...] COVID-19 Vaccine ( season) 2023 12/06/2020, 11/08/2020 Diabetes: Lipid Panel 06/01/2023 06/01/2018 Influenza (Season Ended) 2024 020, 05/10/2018, 04/25/2015, Additional history exists DTaP/Tdap/Td (2 - Tdap) 11/30/2024 11/30/2014 HepA [...] CREATININE / GFR Routine 06/01/2018 9:34 AM ACCOUNT SERVICES MANAGER Personal history of endocrine disorder LIPID PANEL & DIRECT LDL (IF NEEDED) Routine 06/01/2018 9:34 AM ACCOUNT SERVICES MANAGER Personal history of endocrine disorder HGB A1C Routine 06/01/2018 9:34 AM ACCOUNT SERVICES MANAGER Personal history of endocrine disorder from Last 3 Months or Most Recently Relevant to Health Maintenance Results * Lipid Panel and Direct LDL(If Needed) (06/01/2018 9:34 AM ACCOUNT SERVICES MANAGER) Cholesterol 167 0 - 199 mg/dL PN SOFT Triglycerides 76 4 - 149 mg/dL PN SOFT HDL Cholesterol 49 >39 mg/dL PN SOFT Cholesterol/HDL Ratio Screen 3.4 PN SOFT LDL Calculated 103 19 - 130 mg/dL PN SOFT Non HDL Chol, Calc 118 0 - 159 mg/dL PN SOFT Hours Fasting 12.0 PN SOFT 06/01/2018 9:34 AM ACCOUNT SERVICES MANAGER 06/01/2018 9:34 AM ACCOUNT SERVICES MANAGER Narrative PN SOFT - 06/01/2018 12:38 PM ACCOUNT SERVICES MANAGER [place] [address] CLIA number [id number] Linda Dia PA-C LAB_1 [facility] [address] [place], [place] [address] * Creatinine / GFR (06/01/2018 9:34 AM ACCOUNT SERVICES MANAGER) Creatinine Serum 0.70 0.55 - 1.02 mg/dL PN SOFT Est GFR Am >60 >60 mL/min/1.7 3m2 PN SOFT Est GFR Non-Afr Am >60 >60 mL/min/1.7 3m2 PN SOFT Comment: Normal>60, moderate decrease 30 - 59, severe decrease 15 - 29, renal failure <15 mL/min/1.73 m2 NOTE: ??Choose the eGFR result above appropriate for the race of the patient. 06/01/2018 9:34 AM ACCOUNT SERVICES MANAGER 06/01/2018 9:34 AM ACCOUNT SERVICES MANAGER Narrative PN SOFT - 06/01/2018 12:38 PM ACCOUNT SERVICES MANAGER [place] [address] CLIA number [id number] Linda Dia YOLANDA-C LAB_1 Performing Organization Address [facility] Co de Phone Number PN SOFT [address] [place] [address] * (ABNORMAL) Hgb A1c (06/01/2018 9:34 AM ACCOUNT SERVICES MANAGER) HGB A1C 6.4(H) 4.0 - 5.6 % PN SOFT 06/01/2018 9:34 AM ACCOUNT SERVICES MANAGER 06/01/2018 12:02 PM ACCOUNT SERVICES MANAGER Narrative PN SOFT - 06/01/2018 3:05 PM ACCOUNT SERVICES MANAGER Performed at [address] [address] CLIA number [id number] Linda GUERRERO-C LAB_1 Performing Organization Address [facility] de Phone Number PN SOFT [address] [place] [address] from Last 3 Months or Most Recently Relevant to Health Maintenance Advance Directives * Full Code (Latest Code Status on File) Date Activated Date Inactivated Comments 12/28/2018 8:30 PM 12/30/2018 7:59 PM Care Teams Parking Enforcement Specialist Relationship Specialty Start Date End Date Erlin Aquino MD [facility] [address] [place] [address] PCP - General Family Practice 12/28/18
== END 2023-12-06 07:07 | disposition home or self-care (01) ==
PROVIDERS: Emergency Provider Internal Medicine; PCP Family Medicine
DX: H66.92 Otitis media, unspecified, left ear (principal); J32.9 Chronic sinusitis, unspecified
CPT/HCPCS: 99283

== ENCOUNTER 2024-07-23 15:40 | Outpatient (CLI) | payer OTHER, SELFPAY | END 2024-07-23 15:41 | disposition home or self-care (01) | LOC: LKVREF 15:41 | PROVIDERS: PCP Family Medicine; Visit Provider Family Medicine | DX: I10 Essential (primary) hypertension (principal); E13.9 Other specified diabetes mellitus without complications; Z79.85 Long-term (current) use of injectable non-insulin antidiabetic drugs | CPT/HCPCS: 80048 ==

== ENCOUNTER 2025-04-28 08:50 | Emergency (ER) | payer OTHER, SELFPAY ==
--- OUTSIDE RECORDS SUMMARY | 2024-06-01 09:45 | XMS_ITS | Continuity of Care Document ---
Author Organization [facility] enter Address [address] [place] [phone] Phone Care Team Providers Care Payroll Technician Name Role Phone [facility] Unavailable Unava ilable Procedures Procedure Date INJ FORAMEN EPIDURAL L/S INJ FORAMEN EPIDURAL L/S INJ FORAMEN EPIDURAL L/S INJ FORAMEN EPIDURAL L/S INJ FORAMEN EPIDURAL L/S INJ FORAMEN EPIDURAL L/S INJ FORAMEN EPIDURAL L/S INJ FORAMEN EPIDURAL L/S INJ FORAMEN EPIDURAL L/S INJ FORAMEN EPIDURAL L/S Advance Directives Directive Yes / No Effective Date File Name No Information Encounters Encounter Description Practice Location Reason(s) For Visit Diagnoses Date Provider Providers Copied on Encounter [facility], [address] [place] [address], [id number], [place] tel:[phone] [place] [address] No Information [facility]. [address] [place] [address], [id number], [place]. tel:[phone] Referring Provider: Ned Mcdermott, [address] [facility], [place], [address] . tel:[phone] [facility], [address] [place] [address], [id number], tel:[phone] [place] [address] No Information 4 [facility]. [address] [place] [address], [id number], [place]. tel:[phone] Referring Provider: Margaret Dueñas, [address] [facility] [place], [address] . tel:[phone] [facility], [address] [place] [address], [id number], tel:[phone] [place] [address] No Information 3 [facility]. [address] [place] [address], [id number], [place]. tel:[phone] Referring Provider: Margaret Dueñas, [address] [place] [address] [place], [address] . tel:[phone] [facility], [address] [place] [address], [id number], tel:[phone] [place] [address] No Information 3 [facility]. [address] [place] [address], [id number], [place]. tel:[phone] Referring Provider: Margaret Dueñas, [address] [place] [address] [place], [address] . tel:[phone] [facility], [address] [place] [address], [id number], tel:[phone] [place] [address] No Information [facility]. [address] [place] [address], [id number], [place]. tel:[phone] Referring Provider: Margaret Dueñas, [address] [place] [address] [place], [address] . tel:[phone] Family History Family Member Type Diagnosis Age At Onset No Information Payers Payer name Insurance type Covered libertarian ID Nikkie salmon(juliet) [facility] [id number] Social History Type Description Quantity Date Captured Comments Sex Female Smoking Status No Information Chief Complaint And Reason For Visit No Information Reason For Referral Reason For Referral No Information History Of Present Illness Encounter Date Complaint History Of Prese nt Illness No Information Functional Status Date Functional Assessmen t No Information Instructions Date Instruction Additional Infor mation No Information Assessments Type Assessment Date No Information Patient Care Teams Name Effective Dates (start - stop) Status Members No Information
--- OUTSIDE RECORDS SUMMARY | 2024-06-01 09:45 | XMS_ITS | Continuity of Care Document ---
Author Organization [facility] enter Address [address] [place] [address] Phone Care Team Providers Care Rn Clinical Research Name Role Phone [facility] Unavailable Unava ilable Procedures Procedure Date INJ [...] Diagnoses Date Provider Providers Copied on Encounter [facility], [address] [place] [address], [id number], [place] tel:[phone] [place] [address] No Information [facility]. [address] [place] [address], [id number], [place]. tel:[phone] Referring Provider: Ned Mcdermott, [address] [facility], [place], [address] . tel:[phone] [facility], [address] [place] [address], [id number], tel:[phone] [place] [address] No Information 4 [facility]. [address] [place] [address], [id number], [place]. tel:[phone] Referring Provider: Margaret Dueñas, [address] [facility] [place], [address] . tel:[phone] [facility], [address] [place] [address], [id number], tel:[phone] [place] [address] No Information 3 [facility]. [address] [place] [address], [id number], [place]. tel:[phone] Referring Provider: Margaret Dueñas, [address] [place] [address] [place], [address] . tel:[phone] [facility], [address] [place] [address], [id number], tel:[phone] [place] [address] No Information 3 [facility]. [address] [place] [address], [id number], [place]. tel:[phone] Referring Provider: Margaret Dueñas, [address] [place] [address] [place], [address] . tel:[phone] [facility], [address] [place] [address], [id number], tel:[phone] [place] [address] No Information [facility]. [address] [place] [address], [id number], [place]. tel:[phone] Referring Provider: Margaret Dueñas, [address] [place] [address] [place], [address] . tel:[phone] Family History Family Member Type Diagnosis Age At Onset No Information Payers Payer name Insurance type Covered democrat ID Nikkie salmon(juliet) [facility] [id number] Social History Type Description Quantity Date Captured [...]
--- OUTSIDE RECORDS SUMMARY | 2025-04-21 05:57 | XMS_ITS | Continuity of Care Document ---
Author Organization [facility] dayanara Address [address] [place] [address] Phone Care Team Providers Care Door Opener Name Role Phone Yane ROSETTA Mary Alice Unavailable Unavailable Allergies, Adverse Reactions, Alerts Substance Reaction Status Criticality vancomycin Edema Active No Information Medications Medication Instructions Dosage Effective Dates (start - stop) Status Comments hydrocodone 10 mg-acetaminophen 325 mg tablet take 1 tablet by ORAL route every 6-8 hours as needed.for chronic pain, max 3/day for 30 days - Active may fill today Mounjaro 2.5 mg/0.5 mL subcutaneous pen injector inject (2.5MG) by subcutaneous route every week for 4 weeks 2.5 MG - Active minoxidil 2.5 mg tablet take 2 tablet by oral route every day 5 MG - Active for hair growth atorvastatin 40 mg tablet take 1 tablet by oral route every day 40 MG - Active lisinopril 20 mg tablet take 1 tablet by oral route every day 20 MG - Active trazodone 50 mg tablet take 1 tablet by oral route 1 to 2 times every day at bedtime - Active Xanax 0.5 mg tablet take 1 tablet by oral route 3 times every day as needed 0.5 MG - Active vitamin B complex tablet - Active fluoxetine 40 mg capsule take 1 capsule by oral route every day in the morning 40 MG - Active hydrocodone 10 mg-acetaminophen 325 mg tablet take 1 tablet by ORAL route every 6-8 hours as needed.for chronic pain, max 3/day for 30 days - No Longer Active may fill today Procedures Procedure Date OFFICE VISIT, EST TELEMEDICINE OFFICE/OUTPATIENT VISIT, EST OFFICE VISIT, EST TELEMEDICINE OFFICE VISIT, EST TELEMEDICINE Drug test def 8-14 classes Drug Urine Toxology With Chromatography OFFICE/OUTPATIENT VISIT, EST OFFICE VISIT, EST TELEMEDICINE OFFICE VISIT, EST TELEMEDICINE OFFICE/OUTPATIENT VISIT, EST OFFICE VISIT, EST TELEMEDICINE OFFICE VISIT, EST TELEMEDICINE INJ FORAMEN EPIDURAL L/S OFFICE/OUTPATIENT VISIT, EST Drug test def 8-14 classes Drug Urine Toxology With Chromatography OFFICE VISIT, EST TELEMEDICINE OFFICE VISIT, EST TELEMEDICINE PT EVAL MOD COMPLEX 30 MIN OFFICE/OUTPATIENT VISIT, EST Drug Urine Toxology With Chromatography Drug test def 8-14 classes OFFICE VISIT, EST TELEMEDICINE OFFICE VISIT, EST TELEMEDICINE INJ FORAMEN EPIDURAL L/S BILATERAL OFFICE/OUTPATIENT VISIT, EST Drug Urine Toxology With Chromatography Drug test def 15-21 classes OFFICE VISIT, EST TELEMEDICINE OFFICE VISIT, EST TELEMEDICINE OFFICE/OUTPATIENT VISIT, EST Drug Urine Toxology With Chromatography Drug test def 15-21 classes OFFICE VISIT, EST TELEMEDICINE INJ FORAMEN EPIDURAL L/S BILATERAL OFFICE VISIT, EST TELEMEDICINE OFFICE/OUTPATIENT VISIT, EST Drug Urine Toxology With Chromatography Drug test def 8-14 classes OFFICE VISIT, EST TELEMEDICINE OFFICE VISIT, EST TELEMEDICINE OFFICE/OUTPATIENT VISIT, EST Drug Urine Toxology With Chromatography Drug test def 8-14 classes OFFICE VISIT, EST TELEMEDICINE Foll-up eval q3mo opiod tx OFFICE VISIT, EST TELEMEDICINE INJ FORAMEN EPIDURAL L/S BILATERAL Sep- Drug Urine Toxology With Chromatography Drug test def 1-7 classes Foll-up eval q3mo opiod tx OFFICE/OUTPATIENT VISIT, EST Foll-up eval q3mo opiod tx OFFICE VISIT, EST TELEMEDICINE Foll-up eval q3mo opiod tx OFFICE VISIT, EST TELEMEDICINE Foll-up eval q3mo opiod tx OFFICE VISIT, EST TELEMEDICINE INJ FORAMEN EPIDURAL L/S BILATERAL Foll-up eval q3mo opiod tx OFFICE VISIT, EST TELEMEDICINE 21 Foll-up eval q3mo opiod tx OFFICE VISIT, EST TELEMEDICINE OFFICE VISIT, EST TELEMEDICINE 21 Foll-up eval q3mo opiod tx OFFICE VISIT, EST TELEMEDICINE 21 Foll-up eval q3mo opiod tx OFFICE VISIT, EST TELEMEDICINE 21 Foll-up eval q3mo opiod tx OFFICE VISIT, EST TELEMEDICINE 21 Foll-up eval q3mo opiod tx OFFICE VISIT, EST TELEMEDICINE 20 Foll-up eval q3mo opiod tx OFFICE VISIT, EST TELEMEDICINE 20 Foll-up eval q3mo opiod tx OFFICE VISIT, EST TELEMEDICINE 20 Foll-up eval q3mo opiod tx OFFICE VISIT, EST TELEMEDICINE 20 Foll-up eval q3mo opiod tx OFFICE VISIT, EST TELEMEDICINE 20 Foll-up eval q3mo opiod tx OFFICE VISIT, EST TELEMEDICINE 20 Foll-up eval q3mo opiod tx Foll-up eval q3mo opiod tx OFFICE VISIT, EST TELEMEDICINE OFFICE VISIT, EST TELEMEDICINE Foll-up eval q3mo opiod tx Foll-up eval q3mo opiod tx OFFICE VISIT, EST TELEMEDICINE Drug Urine Toxology With Chromatography Drug test def 22+ classes No Charge For Visit Per Prov Foll-up eval q3mo opiod tx OFFICE VISIT, EST TELEMEDICINE DAST 15-30 MIN OFFICE/OUTPATIENT VISIT, [facility] Advance Directives Directive Yes / No Effective Date File Name No Information Encounters Encounter Description Practice Location Reason(s) For Visit Diagnoses Date Provider Providers Copied on Encounter OFFICE VISIT, EST TELEMEDICINE [facility], [address] [place], [place], [id number] , [place] tel:[phone] [facility] [place] Widespread pain (chief complaint) Chronic pain syndromeRadicul opathy, lumbar regionLong term (current) use of opiate analgesicMyalgi a, other site 5 [facility]. [address] [place] [address] [address], [place], [place], [id number], [place]. tel:[phone] OFFICE/OUTPAT IENT VISIT, [facility], [address] [place], [place], [id number] , [place] tel:[phone] [facility] low back pain (chief complaint) Chronic pain syndromeRadicul opathy, lumbar regionLong term (current) use of opiate analgesic 5 Shabbir Jara. [address] [place], [place], [id number], [place]. tel:[phone] Referring Provider: Ramirez Norris, [address] [facility] [place], [address] . tel:[phone] OFFICE VISIT, [facility], [address] [place] [address], [id number] , [place] tel:[phone] [facility] low back pain (chief complaint) Chronic pain syndromeRadicul opathy, lumbar regionLong term (current) use of opiate analgesic 5 [facility] [address] [facility] [address], [place], [id number], [place]. tel:[phone] Referring Provider: Ramirez Norris, [address] [place], [place] [address], [address] . tel:[phone] OFFICE VISIT, [facility], [address] [place] [address], [id number] , [place] tel:[phone] [facility] low back pain (chief complaint) Chronic pain syndromeRadicul opathy, lumbar regionLong term (current) use of opiate analgesic 5 [facility]. [address], [place], [id number], [place]. tel:[phone] OFFICE/OUTPAT IENT VISIT, [facility], [address] [place] [address], [id number] , [place] tel:[phone] [facility] low back pain (chief complaint) Chronic pain syndromeRadicul opathy, lumbar regionLong term (current) use of opiate analgesicEncoun ter for therapeutic drug level monitoring 5 Tori [place]. [address] [place], [place], [id number], [place]. tel:[phone] Referring Provider: Ramirez Norris, [address] [place] [address] [place], [address] . tel:[phone] OFFICE VISIT, [facility], [address] [place] [address], [id number] , [place] tel:[phone] [facility] low back pain (chief complaint) Chronic pain syndromeRadicul opathy, lumbar regionLong term (current) use of opiate analgesic 5 Yane Wheat. [address] [facility] [address], [place], [id number], [place]. tel:[phone] OFFICE VISIT, [facility], [address] [place] [address], [id number] , [place] tel:[phone] [facility] low back pain (chief complaint) Chronic pain syndromeRadicul opathy, lumbar regionLong term (current) use of opiate analgesic 5 Yane Wheat. [address] [facility] [address], [place], [id number], [place]. tel:[phone] OFFICE/OUTPAT IENT VISIT, [facility], [address] [place] [address], [id number] , [place] tel:[phone] [facility] low back pain (chief complaint) Radiculopathy, lumbar regionLong term (current) use of opiate analgesicChroni c pain syndrome 5 Deborah Marcial. [address] [place] [address], [id number], [place]. tel:[phone] Referring Provider: Ramirez Norris, [address] [place], [place] [address], [address] . tel:[phone] OFFICE VISIT, [facility], [address] [place] [address], [id number] , [place] tel:[phone] [facility] low back pain (chief complaint) Radiculopathy, lumbar regionLong term (current) use of opiate analgesicChroni c pain syndrome 4 Yane Wheat. [address] [facility] [address], [place], [id number], [place]. tel:[phone] Referring Provider: Ramirez Norris, [address] [place], [place] [address], [address] . tel:[phone] OFFICE VISIT, [facility], [address] [place] [address], [id number] , [place] tel:[phone] [facility] low back pain (chief complaint) Radiculopathy, lumbar regionLong term (current) use of opiate analgesicChroni c pain syndromeAnxiety disorder, unspecified 4 Hermila Louis. [address] [facility] [address], [place], [id number], [place]. tel:[phone] Referring Provider: Ramirez Norris, [address] [place] [address] [place], [address] . tel:[phone] [facility], [address] [place] [address], [id number] , [place] [phone] [facility] Radiculopathy, lumbar region 4 Murphymylessaud Marino. [address] [place] [address], [id number], [place]. tel:[phone] Referring Provider: Ramirez Norris, [address] [place] [address] [place], [address] . tel:[phone] OFFICE/OUTPAT IENT VISIT, EST [facility], [address] [place] [address], [id number] , [place] [phone] [facility] low back pain (chief complaint) Radiculopathy, lumbar regionLong term (current) use of opiate analgesicChroni c pain syndromeAnxiety disorder, unspecifiedEnco unter for therapeutic drug level monitoring 4 Davinabrigido Wheat. [address] [facility] [address] [facility] [address], [place], [id number], [place]. tel:[phone] Referring Provider: Ramirez Norris, [address] [place] [address] [place], [address] . tel:[phone] OFFICE VISIT, EST TELEMEDICINE [facility], [address] [place] [address], [id number] , [place] [phone] [facility] low back pain (chief complaint) Radiculopathy, lumbar regionLong term (current) use of opiate analgesicChroni c pain syndromeAnxiety disorder, unspecified 4 Yane Wheat. [address] [facility] [address], [place], [place], [id number], [place]. tel:[phone] Referring Provider: Ramirez Norris, [address] [place], [place] [address], [address] . tel:[phone] OFFICE VISIT, [facility], [address] [place] [address], [id number] , [place] tel:[phone] [facility] Back Pain (chief complaint) Radiculopathy, lumbar regionLong term (current) use of opiate analgesicOther chronic pain 4 Carla [place], [address] [place], [address], [place]. tel:[phone] [facility], [address] [place] [address], [id number] , [place] tel:[phone] [facility] lumbago (chief complaint) Radiculopathy, lumbar region 4 Monique Hillman. [address] [place] [address], [id number], [place]. tel:[phone] OFFICE/OUTPAT IENT VISIT, [facility], [address] [place] [address], [id number] , [place] tel:[phone] [facility] Back Pain (chief complaint) Other chronic painRadiculopat hy, lumbar regionLong term (current) use of opiate analgesicEncoun ter for therapeutic drug level monitoring 4 Carla [place], [address] [place], [address], [place]. tel:[phone] Referring Provider: Ramirez Norris, [address] [place] [address] [place], [address] . tel:[phone] OFFICE VISIT, [facility] TELEMEDICINE [facility], [address] [place] [address], [id number] , [place] [phone] [facility] [place] Back Pain (chief complaint) Other chronic painRadiculopat hy, lumbar regionLong term (current) use of opiate analgesic 4 Adalgisa Jennings. [address], [place], [place], [id number], [place]. tel:[phone] Referring Provider: Ramirez Norris, [address] [place], [place] [address], [address] . tel:[phone] OFFICE VISIT, [facility] TELEMEDICINE [facility], [address] [place] [address], [id number] , [place] tel:[phone] [facility] Back Pain (chief complaint) Other chronic painRadiculopat hy, lumbar regionLong term (current) use of opiate analgesic 4 Carla Ortiz. Leonard, [address] [place], [address], [place]. tel:[phone] Referring Provider: Rmairez Norris, [address] [place], [place] [address], [address] . tel:[phone] [facility], [address] [place] [address], [id number] , [place] tel:[phone] [facility] Radiculopathy, lumbar region 4 Spenser Robles. [address] [place], [place], [id number], [place]. tel:[phone] Referring Provider: Safia Apodaca [address] [place], [address]. tel:[phone] OFFICE/OUTPAT IENT VISIT, [facility], [address] [place] [address], [id number] , [place] tel:[phone] [facility] Back Pain (chief complaint) Other chronic painRadiculopat hy, lumbar regionLong term (current) use of opiate analgesic 4 Carla Baig, [address] [place], [address], [place]. tel:[phone] Referring Provider: Ramirez Norris, [address] [place] [address], [address] . tel:[phone] OFFICE VISIT, [facility], [address] [place] [address], [id number] , [place] tel:[phone] [facility] back pain (chief complaint) Other chronic painRadiculopat hy, lumbar regionLong term (current) use of opiate analgesic 4 Carla [place], [address] [place], [address], [place]. [phone] OFFICE VISIT, [facility], [address] [place] [address], [id number] , [place] tel:[phone] [facility] Back pain (chief complaint) Other chronic painRadiculopat hy, lumbar regionLong term (current) use of opiate analgesic 4 Carla [place], [address] [place], [address], [place]. [phone] Referring Provider: Ramirez Norris, [address] [place] [address], [address] . tel:[phone] OFFICE/OUTPAT IENT VISIT, [facility], [address] [place] [address], [id number] , [place] tel:[phone] [facility] back pain (chief complaint) Other chronic painRadiculopat hy, lumbar regionLong term (current) use of opiate analgesicEncoun ter for therapeutic drug level monitoring 4 Carla Baig, [address] [place], [address], [place]. tel:[phone] Referring Provider: Ramirez Norris, [address] [place] [address], [address] . tel:[phone] OFFICE VISIT, [facility], [address] [place] [address], [id number] , [place] [phone] [facility] back pain (chief complaint) Other chronic painRadiculopat hy, lumbar regionLong term (current) use of opiate analgesic 3 Carla Baig, [address] [place], [address], [place]. tel:[phone] [facility], [address] [place] [address], [id number] , [place] [phone] [facility] Radiculopathy, lumbar region 3 Spenser Robles. [address] [place], [place], [id number], [place]. tel:[phone] Referring Provider: Safia Apodaca [address] [place], [address]. tel:[phone] OFFICE VISIT, [facility] TELEMEDICINE [facility], [address] [place] [address], [id number] , [place] [phone] [facility] Back Pain (chief complaint) Other chronic painRadiculopat hy, lumbar regionLong term (current) use of opiate analgesic 3 Carla Baig, [address] [place], [address], [place]. tel:[phone] Referring Provider: Ramirez Norris, [address] [place] [address], [address] . tel:[phone] OFFICE/OUTPAT IENT VISIT, [facility], [address] [place] [address], [id number] , [place] [phone] [facility] back pain (chief complaint) Radiculopathy, lumbar regionOther chronic painLong term (current) use of opiate analgesicEncoun ter for therapeutic drug level monitoring 3 Carla Baig, [address] [place], [address], [place]. tel:[phone] Referring Provider: Safia Apodaca [address] [place], [address]. tel:[phone] [facility], [address] [place] [address], [id number] , [place] tel:[phone] [facility] No Information 3 Carla [place], [address] [place], [address], [place]. tel:[phone] OFFICE VISIT, [facility], [address] [place] [address], [id number] , [place] tel:[phone] [facility] back pain (chief complaint) Other chronic painRadiculopat hy, lumbar regionLong term (current) use of opiate analgesic Feb- 3 Carla [place], [address] [place], [address], [place]. tel:[phone] OFFICE VISIT, [facility], [address] [place] [address], [id number] , [place] tel:[phone] [facility] back pain (chief complaint) Other chronic painRadiculopat hy, lumbar regionLong term (current) use of opiate analgesic Jan- 3 Carla Baig, [address] [place], [address], [place]. tel:[phone] Referring Provider: Ramirez Norris, [address] [place], [address] . tel:[phone] OFFICE/OUTPAT IENT VISIT, [facility], [address] [place] [address], [id number] , [place] tel:[phone] [facility] Back Pain (chief complaint) Other chronic painRadiculopat hy, lumbar regionLong term (current) use of opiate analgesic 3 Carla Baig, [address] [place], [address], [place]. [phone] Referring Provider: Safia Apodaca [address] [place], [address]. tel:[phone] [facility], [address] [place] [address], [id number] , [place] tel:[phone] [facility] No Information 3 Carla [place], [address] [place], [address], [place]. tel:[phone] OFFICE VISIT, EST TELEMEDICINE [facility], [address] [place] [address], [id number] , [place] tel:[phone] [facility] Back pain (chief complaint) Other chronic painOther intervertebral disc degeneration, lumbar regionRadiculop athy, lumbar regionLong term (current) use of opiate analgesic November- 3 Carla [place], [address] [place], [address], [place]. tel:[phone] Referring Provider: Ramirez Norris, [address] [place] [address], [address] . tel:[phone] OFFICE VISIT, EST TELEMEDICINE [facility], [address] [place] [address], [id number] , [place] tel:[phone] [facility] Back Pain (chief complaint) Other chronic painOther intervertebral disc degeneration, lumbar regionRadiculop athy, lumbar regionLong term (current) use of opiate analgesic 3 Carla Baig, [address] [place], [address], [place]. tel:[phone] [facility], [address] [place] [address], [id number] , [place] tel:[phone] [facility] Radiculopathy, lumbar region Sep- 3 Spenser Robles. [address] [place], [place], [id number], [place]. tel:[phone] Referring Provider: Safia Apodaca [address] [place], [address]. tel:[phone] [facility], [address] [place] [address], [id number] , [place] tel:[phone] [facility] No Information 3 Carla [place], [address] [place], [address], [place]. tel:[phone] OFFICE/OUTPAT IENT VISIT, [facility], [address] [place] [address], [id number] , [place] [phone] [facility] Back Pain (chief complaint) Other chronic painOther intervertebral disc degeneration, lumbar regionRadiculop athy, lumbar regionLong term (current) use of opiate analgesic 3 Carla [place], [address] [place], [address], [place]. tel:[phone] Referring Provider: Safia Apodaca [address] [place], [place], [facility]. tel:[phone] OFFICE VISIT, [facility], [address] [place] [address], [id number] , [place] [phone] [facility] Back Pain (chief complaint) Other chronic painRadiculopat hy, lumbar regionOther intervertebral disc degeneration, lumbar regionLong term (current) use of opiate analgesic Oct-0 1 Carla Baig, [address] [place], [address], [place]. tel:[phone] Referring Provider: Ramirez Norris, [address] [place], [place] [address], [address] . tel:[phone] OFFICE VISIT, [facility], [address] [place] [address], [id number] , [place] tel:[phone] [facility] Back Pain (chief complaint) Radiculopathy, lumbar regionOther intervertebral disc degeneration, lumbar regionOther chronic painLong term (current) use of opiate analgesic Sep-0 1 Carla Baig, [address] [place], [address], [place]. tel:[phone] Referring Provider: Ramirez Norris, [address] [place], [place] [address], [address] . tel:[phone] OFFICE VISIT, EST TELEMEDICINE [facility], [address] [place] [address], [id number] , [place] [phone] [facility] Back Pain (chief complaint) Radiculopathy, lumbar regionOther intervertebral disc degeneration, lumbar regionOther chronic painLong term (current) use of opiate analgesic 1 Carla Baig, [address] [place], [address], [place]. tel:[phone] Referring Provider: Ramirez Norris, [address] [place] [address] [place], [address] . tel:[phone] [facility], [address] [place] [address], [id number] , [place] tel: [phone] [facility] Radiculopathy, lumbar region 1 Spenser Robles. [address] [place] [address], [id number], [place]. tel:[phone] Referring Provider: Safia Apodaca [address] [place], [address]. tel:[phone] OFFICE VISIT, EST TELEMEDICINE [facility], [address] [place] [address], [id number] , [place] [phone] [facility] Back Pain (chief complaint) Radiculopathy, lumbar regionOther intervertebral disc degeneration, lumbar regionOther chronic painLong term (current) use of opiate analgesic 1 Carla Baig, [address] [place], [address], [place]. tel:[phone] Referring Provider: Ramirez Norris, [address] [place] [address] [place], [address] . tel:[phone] OFFICE VISIT, EST [facility], [address] [place] [address], [id number] , [place] [phone] [facility] Back Pain (chief complaint) Other intervertebral disc degeneration, lumbar regionOther chronic painLong term (current) use of opiate analgesicRadicu lopathy, lumbar region May-2 6-202 1 Aguirre Dan. [place], [address] [place], [address], [place]. tel:[phone] Referring Provider: Ramirez Norris, [address] [place] [address], [address] . tel:[phone] OFFICE VISIT, EST [facility], [address] [place] [address], [id number] , [place] [phone] [facility] Back Pain (chief complaint) Other intervertebral disc degeneration, lumbar regionOther chronic painLong term (current) use of opiate analgesicRadicu lopathy, lumbar region May-0 3- 1 Aguirre AngelNaida ArreguinLeonard, [address] [place], [address], [place]. tel:[phone] Referring Provider: Ramirez Norris, [address] [place] [address], [address] . tel:[phone] OFFICE VISIT, EST [facility], [address] [place] [address], [id number] , [place] tel:[phone] [facility] Back Pain (chief complaint) Other intervertebral disc degeneration, lumbar regionOther chronic painLong term (current) use of opiate analgesicRadicu lopathy, lumbar region Apr-0 2-202 1 Aguirre Dan. [place], [address] [facility], [place], [address], [place]. tel:[phone] Referring Provider: Ramirez Norris, [address] [place] [address], [address] . tel:[phone] OFFICE VISIT, EST [facility], [address] [place] [address], [id number] , [place] tel:[phone] [facility] Back Pain (chief complaint) Other intervertebral disc degeneration, lumbar regionOther chronic painLong term (current) use of opiate analgesicRadicu lopathy, lumbar region Mar-0 2-202 1 Aguirre Angel. [place], [address] [place], [address], [place]. tel:[phone] Referring Provider: Ramirez Norris, [address] [place] [address] [place], [address] . tel:[phone] OFFICE VISIT, [facility], [address] [place] [address], [id number] , [place] tel:[phone] [facility] Back Pain (chief complaint) Other intervertebral disc degeneration, lumbar regionOther chronic painLong term (current) use of opiate analgesicRadicu lopathy, lumbar region Feb-0 2- 1 Aguirre Angel. [place], [address] [place], [address], [place]. tel:[phone] Referring Provider: Ramirez Norris, [address] [place] [address] [place], [address] . tel:[phone] OFFICE VISIT, [facility], [address] [place] [address], [id number] , [place] tel:[phone] [facility] Back Pain (chief complaint) Other intervertebral disc degeneration, lumbar regionOther chronic painLong term (current) use of opiate analgesic Dec-3 0- 0 Aguirre Angel. [place], [address] [place], [address], [place]. tel:[phone] Referring Provider: Ramirez Norris, [address] [place] [address] [place], [address] . tel:[phone] OFFICE VISIT, [facility], [address] [place] [address], [id number] , [place] tel:[phone] [facility] Back Pain (chief complaint) Other intervertebral disc degeneration, lumbar regionOther chronic painLong term (current) use of opiate analgesicRadicu lopathy, lumbar region Nov-3 0-202 0 Aguirre Angel. [place], [address] [place], [address], [place]. tel:[phone] Referring Provider: Ramirez Norris, [address] [place] [address], [address] . tel:[phone] OFFICE VISIT, [facility], [address] [place] [address], [id number] , [place] tel:[phone] [facility] Back Pain (chief complaint) Other intervertebral disc degeneration, lumbar regionOther chronic painLong term (current) use of opiate analgesicRadicu lopathy, lumbar region Oct-2 9-202 0 Aguirre Angel. [place], [address] [place], [address], [place]. tel:[phone] Referring Provider: Ramirez Norris, [address] [place] [address], [address] . tel:[phone] OFFICE VISIT, [facility], [address] [place] [address], [id number] , [place] [phone] [facility] Back Pain (chief complaint) Other intervertebral disc degeneration, lumbar regionOther chronic painLong term (current) use of opiate analgesicRadicu lopathy, lumbar region Oct-0 2-202 0 Aguirre Angel. [place], [address] [place], [address], [place]. tel:[phone] Referring Provider: Ramirez Norris, [address] [place], [place] [address], [address] . tel:[phone] OFFICE VISIT, [facility], [address] [place] [address], [id number] , [place] tel:[phone] [facility] Back Pain (chief complaint) Other intervertebral disc degeneration, lumbar regionOther chronic painLong term (current) use of opiate analgesicRadicu lopathy, lumbar region Sep-0 3-202 0 Aguirre Angel. [place], [address] [place], [address], [place]. tel:[phone] Referring Provider: Ramirez Norris, [address] [place], [place] [address], [address] . tel:[phone] OFFICE VISIT, [facility], [address] [place] [address], [id number] , [place] tel:[phone] [facility] Back Pain (chief complaint) Other intervertebral disc degeneration, lumbar regionOther chronic painLong term (current) use of opiate analgesicRadicu lopathy, lumbar region Jan-3 0-202 0 Aguirre Angel. [place], [address] [place], [address], [place]. tel:[phone] Referring Provider: Ramirez Norris, [address] [place] [address] [place], [address] . tel:[phone] OFFICE VISIT, [facility], [address] [place] [address], [id number] , [place] tel:[phone] [facility] Back Pain (chief complaint) Other intervertebral disc degeneration, lumbar regionOther chronic painLong term (current) use of opiate analgesicRadicu lopathy, lumbar region Jan-0 2-202 0 Aguirre Angel. [place], [address] [place], [address], [place]. tel:[phone] Referring Provider: Ramirez Norris, [address] [place], [place] [address], [address] . tel:[phone] OFFICE VISIT, [facility], [address] [place] [address], [id number] , [place] [phone] [facility] Back Pain (chief complaint) long term care phlebotomist (current) use of opiate analgesicOther intervertebral disc degeneration, lumbar regionOther chronic pain Og-0 2-202 0 Aguirre Angel. [place], [address] [place], [address], [place]. tel:[phone] Referring Provider: Ramirez Norris, [address] [place], [place] [address], [address] . tel:[phone] OFFICE VISIT, [facility], [address] [place] [address], [id number] , [place] [phone] [facility] low back pain (chief complaint) Chronic pain syndromeOther intervertebral disc degeneration, lumbar regionDepressio nLong term (current) use of opiate analgesic November-0 - 0 Carla Ortiz. [place], [address], [place], [address], [place]. tel:[phone] Referring Provider: Ramirez Norris, [address] [place] [address], [address] . [phone] [facility], [address] [place] [address], [id number] , [place] tel:[phone] [facility] No Information Oct-0 0 Nyongesa Mary [place]. [address] [facility] [address], [place], [id number], [place]. tel:[phone] Referring Provider: Ramirez Norris, [address] [place] [address], [address] . tel:[phone] [facility], [address] [place] [address], [id number] , [place] [phone] [facility] No Information 0 0 Shabbir Estefani. [address] [place] [address], [id number], [place]. tel:[phone] OFFICE VISIT, [facility], [address] [place] [address], [id number] , [place] [phone] [facility] low back pain (chief complaint) Chronic pain syndromeOther intervertebral disc degeneration, lumbar regionDepressio n Oct-0 6 0 Nyongesa Mary [place]. [address] [facility] [address], [place], [id number], [place]. tel:[phone] OFFICE/OUTPAT IENT VISIT, [facility], [address] [place] [address], [id number] , [place] [phone] [facility] low back pain (chief complaint) Chronic pain syndromeOther intervertebral disc degeneration, lumbar regionDepressio n Sep- 1-202 0 Nyongesa Mary [place]. [address] [facility] [address], [place], [id number], [place]. tel:[phone] Family History Family Member Type Diagnosis Age At Onset Sister Problem disc degeneration Father Problem disc degeneration Payers Payer name Insurance type Covered democrat ID Nikkie salmon[facility]juliet[id number] Social History Type Description Quantity Date Captured Comments Alcohol Use Details Unknown Caffeine Use Details Unknown Tobacco Use Status Smoking Status No Information Sex Female Chief Complaint And Reason For Visit From encounter dated '04/21/2025 10:57'. Widespread pain (chief complaint). Description: Severity level is 5. Duration: chronic. Location ofthe pain is lower back, neck and right shoulder. The patient describes it as achy. The problem is stable. Reason For Referral Reason For Referral No Information Plan Of Treatment Date Type Action Status Goal PAGEANT DIRECTOR Paperwork. Due on due Goal Update Social Hi story. Due on due Goal Order Annual PT. Due on due Goal HPV. Due on due Goal Zoster vaccine ( 1st). Due on due Goal Unhealthy drug u se screening. Due on due Goal FIT. Due on due Goal Medication Recon ciliation. Due on due Goal Tobacco Use. Due on 025 due Goal Height. Due on d ue Goal FIT-DNA. Due on due Goal OARS. Due on due Goal ALT (SGPT). Due on due Goal UDT. Due on due Goal Hepatitis C scre ening. Due on due Goal Weight. Due on d ue Goal Creatinine. Due on due Goal DISTRIBUTION OPERATIONS MANAGER Scanned. Due on due Goal CT-Colonography. Due on due Goal PHQ-9. Due on du e Goal Tobacco screenin g. Due on due Goal AST (SGOT). Due on due Goal Review Allergy L ist. Due on due Goal Tobacco Use. Due on due Goal Zoster vaccine ( ). Due on due Goal Order Annual PT. Due on due Goal Weight. Due on d ue Goal Unhealthy drug u se screening. Due on due Goal FIT-DNA. Due on due Goal CT-Colonography. Due on due Goal Update Social Hi story. Due on due Goal Medication Recon ciliation. Due on due Goal AST (SGOT). Due on due Goal PAGEANT DIRECTOR Paperwork. Due on due Goal ALT (SGPT). Due on due Goal Height. Due on d ue Goal OARS. Due on due Goal Review Allergy L ist. Due on due Goal HPV. Due on due Goal FIT. Due on due Goal Tobacco screenin g. Due on due Goal UDT. Due on due Goal DISTRIBUTION OPERATIONS MANAGER Scanned. Due on due Goal Creatinine. Due on due Goal PHQ-9. Due on du e Goal Hepatitis C scre ening. Due on due Goal Unhealthy drug u se screening. Due on due Goal Zoster vaccine ( 1st). Due on due Goal Height. Due on d ue Goal Tobacco Use. Due on due Goal Update Social Hi story. Due on due Goal FIT. Due on due Goal HPV. Due on due Goal Weight. Due on d ue Goal Order Annual PT. Due on due Goal ALT (SGPT). Due on due Goal Creatinine. Due on due Goal DISTRIBUTION OPERATIONS MANAGER Scanned. Due on due Goal AST (SGOT). Due on due Goal PAGEANT DIRECTOR Paperwork. Due on due Goal CT-Colonography. Due on due Goal Review Allergy L ist. Due on due Goal PHQ-9. Due on du e Goal UDT. Due on due Goal OARS. Due on due Goal Hepatitis C scre ening. Due on due Goal Tobacco screenin g. Due on due Goal FIT-DNA. Due on due Goal Medication Recon ciliation. Due on due Goal Creatinine. Due on due Goal Unhealthy drug u se screening. Due on due Goal Tobacco screenin g. Due on due Goal ALT (SGPT). Due on due Goal DISTRIBUTION OPERATIONS MANAGER Scanned. Due on due Goal Height. Due on d ue Goal OARS. Due on due Goal Hepatitis C scre ening. Due on due Goal Weight. Due on d ue Goal PAGEANT DIRECTOR Paperwork. Due on due Goal PHQ-9. Due on du e Goal FIT. Due on due Goal AST (SGOT). Due on due Goal FIT-DNA. Due on due Goal CT-Colonography. Due on due Goal UDT. Due on due Goal Tobacco Use. Due on due Goal Medication Recon ciliation. Due on due Goal Update Social Hi story. Due on due Goal Order Annual PT. Due on due Goal HPV. Due on due Goal Review Allergy L ist. Due on due Goal Zoster vaccine ( ). Due on due Goal Unhealthy drug u se screening. Due on due Goal HPV. Due on due Goal OARS. Due on due Goal Height. Due on d ue Goal Zoster vaccine ( ). Due on due Goal Tobacco screenin g. Due on due Goal UDT. Due on due Goal FIT-DNA. Due on due Goal ALT (SGPT). Due on due Goal Weight. Due on d ue Goal Tobacco Use. Due on due Goal Update Social Hi story. Due on due Goal Hepatitis C scre ening. Due on due Goal AST (SGOT). Due on due Goal CT-Colonography. Due on due Goal Order Annual PT. Due on due Goal Review Allergy L ist. Due on due Goal Medication Recon ciliation. Due on due Goal FIT. Due on due Goal PAGEANT DIRECTOR Paperwork. Due on due Goal PHQ-9. Due on du e Goal DISTRIBUTION OPERATIONS MANAGER Scanned. Due on due Goal Creatinine. Due on due Goal Medication Recon ciliation. Due on due Goal Order Annual PT. Due on due Goal FIT. Due on due Goal Zoster vaccine ( 1st). Due on due Goal PHQ-9. Due on du e Goal OARS. Due on due Goal Lipid panel. Due on due Goal PAGEANT DIRECTOR Paperwork. Due on due Goal ALT (SGPT). Due on due Goal HPV. Due on due Goal FIT-DNA. Due on due Goal DISTRIBUTION OPERATIONS MANAGER Scanned. Due on due Goal Hepatitis C scre ening. Due on due Goal Height. Due on d ue Goal AST (SGOT). Due on due Goal UDT. Due on due Goal Creatinine. Due on due Goal Unhealthy drug u se screening. Due on due Goal Update Social Hi story. Due on due Goal Review Allergy L ist. Due on due Goal CT-Colonography. Due on due Goal Tobacco Use. Due on due Goal Weight. Due on d ue Goal Lipid panel. Due on due Goal FIT. Due on due Goal AST (SGOT). Due on due Goal Order Annual PT. Due on due Goal Hepatitis C scre ening. Due on due Goal Unhealthy drug u se screening. Due on due Goal ALT (SGPT). Due on due Goal Creatinine. Due on due Goal PHQ-9. Due on du e Goal HPV. Due on due Goal Medication Recon ciliation. Due on due Goal FIT-DNA. Due on due Goal Weight. Due on d ue Goal PAGEANT DIRECTOR Paperwork. Due on due Goal UDT. Due on due Goal OARS. Due on due Goal Zoster vaccine ( 1st). Due on due Goal Update Social Hi story. Due on due Goal DISTRIBUTION OPERATIONS MANAGER Scanned. Due on due Goal CT-Colonography. Due on due Goal Review Allergy L ist. Due on due Goal Height. Due on d ue Goal Tobacco Use. Due on due Goal Tobacco Use. Due on due Goal Creatinine. Due on due Goal UDT. Due on due Goal Lipid panel. Due on due Goal Zoster vaccine ( 1st). Due on due Goal Medication Recon ciliation. Due on due Goal OARS. Due on due Goal Unhealthy drug u se screening. Due on due Goal PHQ-9. Due on du e Goal CT-Colonography. Due on due Goal FIT-DNA. Due on due Goal ALT (SGPT). Due on due Goal AST (SGOT). Due on due Goal Height. Due on d ue Goal Update Social Hi story. Due on due Goal PAGEANT DIRECTOR Paperwork. Due on due Goal FIT. Due on due Goal HPV. Due on due Goal Hepatitis C scre ening. Due on due Goal DISTRIBUTION OPERATIONS MANAGER Scanned. Due on due Goal Review Allergy L ist. Due on due Goal Order Annual PT. Due on due Goal Weight. Due on d ue Goal Lifestyle educat ion regarding diet completed Goal PAGEANT DIRECTOR Paperwork. Due on due Goal FIT-DNA. Due on due Goal CT-Colonography. Due on due Goal Lipid panel. Due on due Goal Hepatitis C scre ening. Due on due Goal PHQ-9. Due on du e Goal UDT. Due on due Goal Medication Recon ciliation. Due on due Goal OARS. Due on due Goal Update Social Hi story. Due on due Goal Review Allergy L ist. Due on due Goal Tobacco Use. Due on due Goal AST (SGOT). Due on due Goal FIT. Due on due Goal Height. Due on d ue Goal Weight. Due on d ue Goal DISTRIBUTION OPERATIONS MANAGER Scanned. Due on due Goal ALT (SGPT). Due on due Goal Creatinine. Due on due Goal Order Annual PT. Due on due Goal Unhealthy drug u se screening. Due on due Goal Zoster vaccine ( 1st). Due on due Goal HPV. Due on due Goal Weight. Due on d ue Goal AST (SGOT). Due on due Goal OARS. Due on due Goal Review Allergy L ist. Due on due Goal UDT. Due on due Goal Update Social Hi story. Due on due Goal FIT. Due on due Goal ALT (SGPT). Due on due Goal HPV. Due on due Goal Tobacco Use. Due on due Goal CT-Colonography. Due on due Goal Hepatitis C scre ening. Due on due Goal Zoster vaccine ( 1st). Due on due Goal Unhealthy drug u se screening. Due on due Goal Order Annual PT. Due on due Goal DISTRIBUTION OPERATIONS MANAGER Scanned. Due on due Goal Medication Recon ciliation. Due on due Goal Height. Due on d ue Goal PHQ-9. Due on du e Goal PAGEANT DIRECTOR Paperwork. Due on due Goal Creatinine. Due on due Goal Lipid panel. Due on due Goal FIT-DNA. Due on due Goal UDT. Due on due Goal Hepatitis C scre ening. Due on due Goal Unhealthy drug u se screening. Due on due Goal ALT (SGPT). Due on due Goal DISTRIBUTION OPERATIONS MANAGER Scanned. Due on due Goal OARS. Due on due Goal AST (SGOT). Due on due Goal Order Annual PT. Due on due Goal PAGEANT DIRECTOR Paperwork. Due on due Goal PHQ-9. Due on du e Goal FIT-DNA. Due on due Goal CT-Colonography. Due on due Goal Medication Recon ciliation. Due on due Goal Height. Due on d ue Goal Weight. Due on d ue Goal Lipid panel. Due on due Goal Review Allergy L ist. Due on due Goal Zoster vaccine ( 1st). Due on due Goal FIT. Due on due Goal Creatinine. Due on due Goal Tobacco Use. Due on due Goal Update Social Hi story. Due on due Goal HPV. Due on due Goal Lifestyle educat ion regarding diet completed Goal ALT (SGPT). Due on due Goal AST (SGOT). Due on due Goal PAGEANT DIRECTOR Paperwork. Due on due Goal OARS. Due on due Goal Review Allergy L ist. Due on due Goal Unhealthy drug u se screening. Due on due Goal FIT. Due on due Goal CT-Colonography. Due on due Goal Creatinine. Due on due Goal Order Annual PT. Due on due Goal Lipid panel. Due on due Goal Hepatitis C scre ening. Due on due Goal UDT. Due on due Goal Update Social Hi story. Due on due Goal Medication Recon ciliation. Due on due Goal Zoster vaccine ( ). Due on due Goal PHQ-9. Due on du e Goal Tobacco Use. Due on due Goal Weight. Due on d ue Goal DISTRIBUTION OPERATIONS MANAGER Scanned. Due on due Goal Height. Due on d ue Goal HPV. Due on due Goal FIT-DNA. Due on due Goal AST (SGOT). Due on due Goal Review Allergy L ist. Due on due Goal Tobacco Use. Due on due Goal Zoster vaccine ( ). Due on due Goal Update Social Hi story. Due on due Goal Lipid panel. Due on due Goal Medication Recon ciliation. Due on due Goal CT-Colonography. Due on due Goal PAGEANT DIRECTOR Paperwork. Due on due Goal ALT (SGPT). Due on due Goal Order Annual PT. Due on due Goal FIT-DNA. Due on due Goal Weight. Due on d ue Goal PHQ-9. Due on du e Goal DISTRIBUTION OPERATIONS MANAGER Scanned. Due on due Goal Creatinine. Due on due Goal HPV. Due on due Goal Height. Due on d ue Goal Unhealthy drug u se screening. Due on due Goal UDT. Due on due Goal Hepatitis C scre ening. Due on due Goal OARS. Due on due Goal FIT. Due on due Goal Review Allergy L ist. Due on due Goal Update Social Hi story. Due on due Goal UDT. Due on due Goal CT-Colonography. Due on due Goal FIT. Due on due Goal Unhealthy drug u se screening. Due on due Goal OARS. Due on due Goal Height. Due on d ue Goal Order Annual PT. Due on due Goal Zoster vaccine ( 1st). Due on due Goal ALT (SGPT). Due on due Goal DISTRIBUTION OPERATIONS MANAGER Scanned. Due on due Goal AST (SGOT). Due on due Goal Creatinine. Due on due Goal PAGEANT DIRECTOR Paperwork. Due on due Goal Hepatitis C scre ening. Due on due Goal FIT-DNA. Due on due Goal Medication Recon ciliation. Due on due Goal Lipid panel. Due on due Goal Tobacco Use. Due on due Goal PHQ-9. Due on du e Goal HPV. Due on due Goal Weight. Due on d ue Goal Hepatitis C scre ening. Due on due Goal AST (SGOT). Due on due Goal DISTRIBUTION OPERATIONS MANAGER Scanned. Due on due Goal OARS. Due on due Goal Lipid panel. Due on due Goal UDT. Due on due Goal Order Annual PT. Due on due Goal Zoster vaccine ( 1st). Due on due Goal Unhealthy drug u se screening. Due on due Goal PAGEANT DIRECTOR Paperwork. Due on due Goal CT-Colonography. Due on due Goal Update Social Hi story. Due on due Goal Creatinine. Due on due Goal ALT (SGPT). Due on due Goal HPV. Due on due Goal Medication Recon ciliation. Due on due Goal FIT. Due on due Goal PHQ-9. Due on du e Goal FIT-DNA. Due on due Goal Weight. Due on d ue Goal Height. Due on d ue Goal Tobacco Use. Due on due Goal Review Allergy L ist. Due on due Goal ALT (SGPT). Due on due Goal Zoster vaccine ( 1st). Due on due Goal FIT. Due on due Goal DISTRIBUTION OPERATIONS MANAGER Scanned. Due on due Goal PAGEANT DIRECTOR Paperwork. Due on due Goal PHQ-9. Due on du e Goal Lipid panel. Due on due Goal FIT-DNA. Due on due Goal Update Social Hi story. Due on due Goal HPV. Due on due Goal Unhealthy drug u se screening. Due on due Goal CT-Colonography. Due on due Goal AST (SGOT). Due on due Goal Order Annual PT. Due on due Goal Medication Recon ciliation. Due on due Goal Weight. Due on d ue Goal Review Allergy L ist. Due on due Goal Creatinine. Due on due Goal Tobacco Use. Due on due Goal Hepatitis C scre ening. Due on due Goal UDT. Due on due Goal OARS. Due on due Goal Height. Due on d ue Goal Unhealthy drug u se screening. Due on due Goal Creatinine. Due on due Goal Weight. Due on d ue Goal CT-Colonography. Due on due Goal DISTRIBUTION OPERATIONS MANAGER Scanned. Due on due Goal Tobacco Use. Due on due Goal PAGEANT DIRECTOR Paperwork. Due on due Goal Update Social Hi story. Due on due Goal Medication Recon ciliation. Due on due Goal Height. Due on d ue Goal PHQ-9. Due on du e Goal OARS. Due on due Goal FIT. Due on due Goal HPV. Due on due Goal Hepatitis C scre ening. Due on due Goal Zoster vaccine ( 1st). Due on due Goal FIT-DNA. Due on due Goal Lipid panel. Due on due Goal Review Allergy L ist. Due on due Goal AST (SGOT). Due on due Goal Order Annual PT. Due on due Goal ALT (SGPT). Due on due Goal UDT. Due on due Goal Medication Recon ciliation. Due on due Goal Lipid panel. Due on due Goal HPV. Due on due Goal ALT (SGPT). Due on due Goal PHQ-9. Due on du e Goal FIT. Due on due Goal Unhealthy drug u se screening. Due on due Goal FIT-DNA. Due on due Goal OARS. Due on due Goal Zoster vaccine ( 1st). Due on due Goal Tobacco Use. Due on due Goal Order Annual PT. Due on due Goal Hepatitis C scre ening. Due on due Goal PAGEANT DIRECTOR Paperwork. Due on due Goal Update Social Hi story. Due on due Goal Height. Due on d ue Goal Review Allergy L ist. Due on due Goal Creatinine. Due on due Goal DISTRIBUTION OPERATIONS MANAGER Scanned. Due on due Goal CT-Colonography. Due on due Goal UDT. Due on due Goal AST (SGOT). Due on due Goal Weight. Due on d ue Goal Lifestyle educat ion regarding diet completed Goal Medication Recon ciliation. Due on due Goal Zoster vaccine ( 1st). Due on due Goal Height. Due on d ue Goal Tobacco Use. Due on due Goal FIT-DNA. Due on due Goal ALT (SGPT). Due on due Goal PHQ-9. Due on du e Goal Review Allergy L ist. Due on due Goal Lipid panel. Due on due Goal HPV. Due on due Goal Hepatitis C scre ening. Due on due Goal Weight. Due on d ue Goal Update Social Hi story. Due on due Goal Unhealthy drug u se screening. Due on due Goal CT-Colonography. Due on due Goal FIT. Due on due Goal AST (SGOT). Due on due Goal PAGEANT DIRECTOR Paperwork. Due on due Goal DISTRIBUTION OPERATIONS MANAGER Scanned. Due on due Goal Order Annual PT. Due on due Goal UDT. Due on due Goal OARS. Due on due Goal Creatinine. Due on due Goal CT-Colonography. Due on due Goal AST (SGOT). Due on due Goal FIT. Due on due Goal Order Annual PT. Due on due Goal Weight. Due on d ue Goal Lipid panel. Due on due Goal HPV. Due on due Goal Tobacco Use. Due on due Goal ALT (SGPT). Due on due Goal Hepatitis C scre ening. Due on due Goal Unhealthy drug u se screening. Due on due Goal DISTRIBUTION OPERATIONS MANAGER Scanned. Due on due Goal Update Social Hi story. Due on due Goal Review Allergy L ist. Due on due Goal PHQ-9. Due on du e Goal FIT-DNA. Due on due Goal Height. Due on d ue Goal Medication Recon ciliation. Due on due Goal Zoster vaccine ( 1st). Due on due Goal UDT. Due on due Goal PAGEANT DIRECTOR Paperwork. Due on due Goal OARS. Due on due Goal Creatinine. Due on due Goal CT-Colonography. Due on due Goal ALT (SGPT). Due on due Goal Review Allergy L ist. Due on due Goal Order Annual PT. Due on due Goal Tobacco Use. Due on due Goal Hepatitis C scre ening. Due on due Goal Height. Due on d ue Goal PAGEANT DIRECTOR Paperwork. Due on due Goal Update Social Hi story. Due on due Goal HPV. Due on due Goal Zoster vaccine ( 1st). Due on due Goal Weight. Due on d ue Goal OARS. Due on due Goal FIT. Due on due Goal Creatinine. Due on due Goal UDT. Due on due Goal Lipid panel. Due on due Goal DISTRIBUTION OPERATIONS MANAGER Scanned. Due on due Goal Medication Recon ciliation. Due on due Goal AST (SGOT). Due on 24 due Goal PHQ-9. Due on du e Goal FIT-DNA. Due on due Goal Unhealthy drug u se screening. Due on due Goal Lifestyle educat ion regarding diet completed Goal Height. Due on d ue Goal PAGEANT DIRECTOR Paperwork. Due on due Goal Lipid panel. Due on 023 due Goal PHQ-9. Due on du e Goal Weight. Due on d ue Goal Unhealthy drug u se screening. Due on due Goal Medication Recon ciliation. Due on due Goal Update Social Hi story. Due on due Goal FIT-DNA. Due on due Goal AST (SGOT). Due on due Goal UDT. Due on due Goal Tobacco Use. Due on 023 due Goal Review Allergy L ist. Due on due Goal HPV. Due on due Goal CT-Colonography. Due on due Goal OARS. Due on due Goal Hepatitis C scre ening. Due on due Goal Zoster vaccine ( 1st). Due on due Goal FIT. Due on due Goal DISTRIBUTION OPERATIONS MANAGER Scanned. Due on due Goal Order Annual PT. Due on due Goal Creatinine. Due on due Goal ALT (SGPT). Due on due Goal PHQ-9. Due on du e Goal Review Allergy L ist. Due on due Goal Lipid panel. Due on due Goal Unhealthy drug u se screening. Due on due Goal HPV. Due on due Goal AST (SGOT). Due on due Goal Update Social Hi story. Due on due Goal FIT. Due on due Goal Medication Recon ciliation. Due on due Goal Creatinine. Due on due Goal UDT. Due on due Goal Tobacco Use. Due on due Goal Order Annual PT. Due on due Goal FIT-DNA. Due on due Goal ALT (SGPT). Due on due Goal OARS. Due on due Goal Height. Due on d ue Goal Zoster vaccine ( 1st). Due on due Goal Weight. Due on d ue Goal PAGEANT DIRECTOR Paperwork. Due on due Goal DISTRIBUTION OPERATIONS MANAGER Scanned. Due on due Goal Hepatitis C scre ening. Due on due Goal CT-Colonography. Due on due Goal FIT-DNA. Due on due Goal PAGEANT DIRECTOR Paperwork. Due on due Goal UDT. Due on due Goal Tobacco Use. Due on due Goal Height. Due on d ue Goal Order Annual PT. Due on due Goal Zoster vaccine ( 1st). Due on due Goal Medication Recon ciliation. Due on due Goal PHQ-9. Due on du e Goal Hepatitis C scre ening. Due on due Goal CT-Colonography. Due on due Goal FIT. Due on due Goal Weight. Due on d ue Goal HPV. Due on due Goal Unhealthy drug u se screening. Due on due Goal Update Social Hi story. Due on due Goal AST (SGOT). Due on due Goal Lipid panel. Due on due Goal OARS. Due on due Goal Creatinine. Due on due Goal ALT (SGPT). Due on due Goal Review Allergy L ist. Due on due Goal DISTRIBUTION OPERATIONS MANAGER Scanned. Due on due Goal HPV. Due on due Goal ALT (SGPT). Due on due Goal FIT-DNA. Due on due Goal Order Annual PT. Due on due Goal Hepatitis C scre ening. Due on due Goal Medication Recon ciliation. Due on due Goal CT-Colonography. Due on due Goal Height. Due on d ue Goal Review Allergy L ist. Due on due Goal AST (SGOT). Due on due Goal PHQ-9. Due on du e Goal Unhealthy drug u se screening. Due on due Goal FIT. Due on due Goal OARS. Due on due Goal UDT. Due on due Goal Update Social Hi story. Due on due Goal PAGEANT DIRECTOR Paperwork. Due on due Goal Creatinine. Due on due Goal Lipid panel. Due on due Goal DISTRIBUTION OPERATIONS MANAGER Scanned. Due on due Goal Zoster vaccine ( 1st). Due on due Goal Tobacco Use. Due on due Goal Weight. Due on d ue Goal HPV. Due on due Goal CT-Colonography. Due on due Goal OARS. Due on due Goal Weight. Due on d ue Goal FIT-DNA. Due on due Goal PHQ-9. Due on du e Goal Unhealthy drug u se screening. Due on due Goal Hepatitis C scre ening. Due on due Goal Tobacco Use. Due on due Goal Lipid panel. Due on due Goal Height. Due on d ue Goal Review Allergy L ist. Due on due Goal Update Social Hi story. Due on due Goal Creatinine. Due on due Goal DISTRIBUTION OPERATIONS MANAGER Scanned. Due on due Goal Order Annual PT. Due on due Goal UDT. Due on due Goal FIT. Due on due Goal AST (SGOT). Due on due Goal Medication Recon ciliation. Due on due Goal ALT (SGPT). Due on due Goal PAGEANT DIRECTOR Paperwork. Due on due Goal Zoster vaccine ( 1st). Due on due Goal AST (SGOT). Due on due Goal Hepatitis C scre ening. Due on due Goal Lipid panel. Due on due Goal Medication Recon ciliation. Due on due Goal FIT. Due on due Goal Zoster vaccine ( 1st). Due on due Goal Weight. Due on d ue Goal Unhealthy drug u se screening. Due on due Goal Review Allergy L ist. Due on due Goal OARS. Due on due Goal CT-Colonography. Due on due Goal Update Social Hi story. Due on due Goal DISTRIBUTION OPERATIONS MANAGER Scanned. Due on 023 due Goal PHQ-9. Due on du e Goal PAGEANT DIRECTOR Paperwork. Due on due Goal Height. Due on d ue Goal Creatinine. Due on due Goal ALT (SGPT). Due on due Goal Tobacco Use. Due on 023 due Goal Order Annual PT. Due on due Goal UDT. Due on due Goal FIT-DNA. Due on due Goal HPV. Due on due Goal FIT-DNA. Due on due Goal UDT. Due on due Goal Medication Recon ciliation. Due on due Goal Review Allergy L ist. Due on due Goal Unhealthy drug u se screening. Due on due Goal Lipid panel. Due on due Goal PHQ-9. Due on du e Goal ALT (SGPT). Due on due Goal Height. Due on d ue Goal DISTRIBUTION OPERATIONS MANAGER Scanned. Due on due Goal Hepatitis C scre ening. Due on due Goal CT-Colonography. Due on due Goal FIT. Due on due Goal HPV. Due on due Goal OARS. Due on due Goal Order Annual PT. Due on due Goal Zoster vaccine ( 1st). Due on due Goal Creatinine. Due on due Goal Update Social Hi story. Due on due Goal Tobacco Use. Due on due Goal PAGEANT DIRECTOR Paperwork. Due on due Goal AST (SGOT). Due on due Goal Weight. Due on d ue Goal PAGEANT DIRECTOR Paperwork. Due on due Goal DISTRIBUTION OPERATIONS MANAGER Scanned. Due on due Goal Lipid panel. Due on due Goal Height. Due on d ue Goal Unhealthy drug u se screening. Due on due Goal UDT. Due on due Goal Tobacco Use. Due on due Goal FIT. Due on due Goal Medication Recon ciliation. Due on due Goal PHQ-9. Due on du e Goal CT-Colonography. Due on due Goal Update Social Hi story. Due on due Goal Creatinine. Due on due Goal FIT-DNA. Due on due Goal Order Annual PT. Due on due Goal ALT (SGPT). Due on due Goal Zoster vaccine ( 1st). Due on due Goal Hepatitis C scre ening. Due on due Goal Review Allergy L ist. Due on due Goal Weight. Due on d ue Goal OARS. Due on due Goal HPV. Due on due Goal AST (SGOT). Due on due Goal FIT. Due on due Goal Medication Recon ciliation. Due on due Goal Review Allergy L ist. Due on due Goal OARS. Due on due Goal Order Annual PT. Due on due Goal DISTRIBUTION OPERATIONS MANAGER Scanned. Due on due Goal Tobacco Use. Due on due Goal AST (SGOT). Due on due Goal Weight. Due on d ue Goal PHQ-9. Due on du e Goal ALT (SGPT). Due on due Goal CT-Colonography. Due on due Goal HPV. Due on due Goal PAGEANT DIRECTOR Paperwork. Due on due Goal Lipid panel. Due on due Goal Creatinine. Due on due Goal Height. Due on d ue Goal Update Social Hi story. Due on due Goal Unhealthy drug u se screening. Due on due Goal UDT. Due on due Goal Hepatitis C scre ening. Due on due Goal FIT-DNA. Due on due Goal Zoster vaccine ( 1st). Due on due Goal CT-Colonography. Due on due Goal HPV. Due on due Goal Unhealthy drug u se screening. Due on due Goal Tobacco Use. Due on due Goal Review Allergy L ist. Due on due Goal Lipid panel. Due on due Goal DISTRIBUTION OPERATIONS MANAGER Scanned. Due on due Goal PAGEANT DIRECTOR Paperwork. Due on due Goal Order Annual PT. Due on due Goal FIT-DNA. Due on due Goal Medication Recon ciliation. Due on due Goal AST (SGOT). Due on due Goal Height. Due on d ue Goal Creatinine. Due on due Goal Weight. Due on d ue Goal Update Social Hi story. Due on due Goal Zoster vaccine ( 1st). Due on due Goal UDT. Due on due Goal FIT. Due on due Goal Hepatitis C scre ening. Due on due Goal ALT (SGPT). Due on due Goal PHQ-9. Due on du e Goal OARS. Due on due Goal Update Social Hi story. Due on due Goal Zoster vaccine ( 1st). Due on due Goal OARS. Due on due Goal Unhealthy drug u se screening. Due on due Goal CT-Colonography. Due on due Goal Order Annual PT. Due on due Goal Weight. Due on d ue Goal FIT-DNA. Due on due Goal FIT. Due on due Goal Hepatitis C scre ening. Due on due Goal UDT. Due on due Goal PAGEANT DIRECTOR Paperwork. Due on due Goal PHQ-9. Due on du e Goal DISTRIBUTION OPERATIONS MANAGER Scanned. Due on due Goal Creatinine. Due on due Goal Lipid panel. Due on due Goal Medication Recon ciliation. Due on due Goal HPV. Due on due Goal ALT (SGPT). Due on due Goal Tobacco Use. Due on due Goal Review Allergy L ist. Due on due Goal Height. Due on d ue Goal AST (SGOT). Due on due Goal Medication Recon ciliation. Due on due Goal Review Allergy L ist. Due on due Goal Update Social Hi story. Due on due Goal PHQ-9. Due on du e Goal Creatinine. Due on due Goal Tobacco Use. Due on due Goal PAGEANT DIRECTOR Paperwork. Due on due Goal Order Annual PT. Due on due Goal AST (SGOT). Due on due Goal ALT (SGPT). Due on due Goal DISTRIBUTION OPERATIONS MANAGER Scanned. Due on due Goal OARS. Due on due Goal UDT. Due on due Goal Height. Due on d ue Goal Weight. Due on d ue Goal Update Social Hi story. Due on due Goal Tobacco Use. Due on due Goal PHQ-9. Due on du e Goal UDT. Due on due Goal ALT (SGPT). Due on due Goal AST (SGOT). Due on due Goal Height. Due on d ue Goal Creatinine. Due on due Goal Order Annual PT. Due on due Goal OARS. Due on due Goal Weight. Due on d ue Goal DISTRIBUTION OPERATIONS MANAGER Scanned. Due on due Goal Medication Recon ciliation. Due on due Goal Review Allergy L ist. Due on due Goal PAGEANT DIRECTOR Paperwork. Due on due Goal Weight. Due on d ue Goal Order Annual PT. Due on due Goal DISTRIBUTION OPERATIONS MANAGER Scanned. Due on due Goal PAGEANT DIRECTOR Paperwork. Due on due Goal Creatinine. Due on due Goal ALT (SGPT). Due on due Goal PHQ-9. Due on du e Goal Height. Due on d ue Goal OARS. Due on due Goal Review Allergy L ist. Due on due Goal UDT. Due on due Goal Medication Recon ciliation. Due on due Goal Tobacco Use. Due on due Goal AST (SGOT). Due on due Goal Update Social Hi story. Due on due Goal Weight. Due on d ue Goal ALT (SGPT). Due on due Goal Update Social Hi story. Due on due Goal Creatinine. Due on due Goal Tobacco Use. Due on due Goal PAGEANT DIRECTOR Paperwork. Due on due Goal AST (SGOT). Due on due Goal OARS. Due on due Goal Review Allergy L ist. Due on due Goal Order Annual PT. Due on due Goal Medication Recon ciliation. Due on due Goal PHQ-9. Due on du e Goal DISTRIBUTION OPERATIONS MANAGER Scanned. Due on due Goal UDT. Due on due Goal Height. Due on d ue Goal Tobacco Use. Due on due Goal Weight. Due on d ue Goal DISTRIBUTION OPERATIONS MANAGER Scanned. Due on due Goal Update Social Hi story. Due on due Goal OARS. Due on due Goal Review Allergy L ist. Due on due Goal PHQ-9. Due on du e Goal Medication Recon ciliation. Due on due Goal Order Annual PT. Due on due Goal Height. Due on d ue Goal Creatinine. Due on due Goal UDT. Due on due Goal PAGEANT DIRECTOR Paperwork. Due on due Goal AST (SGOT). Due on due Goal ALT (SGPT). Due on due Goal UDT. Due on due Goal Medication Recon ciliation. Due on due Goal Weight. Due on d ue Goal Review Allergy L ist. Due on due Goal Height. Due on d ue Goal Order Annual PT. Due on due Goal PAGEANT DIRECTOR Paperwork. Due on due Goal DISTRIBUTION OPERATIONS MANAGER Scanned. Due on due Goal Tobacco Use. Due on due Goal AST (SGOT). Due on due Goal PHQ-9. Due on du e Goal ALT (SGPT). Due on due Goal Update Social Hi story. Due on due Goal Creatinine. Due on 21 due Goal OARS. Due on due Appointment Tita Ruelas [facility] Appointment Tita Ruelas BOOKED Appointment Tita Ruelas BOOKED Future Order: Radiology Order MR Lumbar WO ([id number]), Sent on: Sent Future Order: Lab Order Drug Yohana t Def 22+ Classes ([id number]), Ordered on: Ordered History Of Present Illness Encounter Date Complaint History Of Prese nt Illness Comments: Tita presents for follow up and medication refill in the setting of chronic low back pain with radiation into the R buttock and intermittently down the R leg but none noted recently.C/o neck pain, radiating into RUE after pulling a muscle at work. Denies numbness or tingling. Pt will monitor for a couple weeks and utilize ice/heat to manage for now. Also agreeable to trial salonpas patches as well.Ongoing intermittent low-mid back pain stable. Has not seen [facility] yet, d/t ongoing financial issues. Will schedule with them once she pays her other pending bills. Pt inquires about IT pump trial today and states she would like to start process.Reports 80% relief from the medication, allowing for increased daily functioning. Denies side effects from current medication regimen. No other concerns. Widespread pain Severity level i s 5. Duration: chronic. Location of the pain is lower back, neck and right shoulder. The patient describes it as achy. The problem is stable. Comments: Tita presents for follow up and medication refill in the setting of chronic low back pain with radiation into the R buttock and intermittently down the R leg but none noted recently. Denies any new health concerns today.Ongoing intermittent low-mid back pain. Has not seen [facility] yet, d/t ongoing financial issues. Will schedule with them once she pays her other pending bills. Not interested in IT pump at this time. Reports 90% relief from the medication, allowing for increased daily functioning. Denies side effects from current medication regimen. No other concerns. low back pain Severity level i s 5. Duration: chronic. The problem is stable. The patient describes the pain as an ache and sharp. Symptoms are aggravated by sitting and reaching overhead. Symptoms are relieved by movement, pain meds/drugs and standing. Comments: Tita presents virtually for follow up and medication refill in the setting of chronic low back pain with radiation into the R buttock and intermittently down the R leg but none noted recently. Denies any new health concerns today.Ongoing intermittent low-mid back pain. Has not seen [facility] yet, d/t ongoing financial issues. Will schedule with them once she pays her other pending bills. Pt interested in further discussing IT pump at next IOV.Reports 70-80% relief from the medication, allowing for increased daily functioning. Denies side effects from current medication regimen. No other concerns. low back pain Severity level i s 5. Duration: chronic. The problem is stable. Location of pain is lower back. low back pain Severity level i s 5. Duration: chronic. The problem is stable. Comments: Tita presents virtually for follow up and medication refill in the setting of chronic low back pain with radiation into the R buttock and intermittently down the R leg. Denies any new health concerns today.Ongoing intermittent low-mid back pain. Has not seen [facility] yet, d/t ongoing financial issues. Will schedule with them once she pays her other pending bills. Continues daily exercising on home treadmill. Reports 80% relief from the medication, allowing for increased daily functioning. Denies side effects from current medication regimen. No other concerns. Comments: Tita presents in clinic for follow up. - Reports she missed recent appointment as she was sick. - Has not seen [facility] yet, notes she has to pay off the bill she has here first before she can schedule with them. On a payment plan here. - RLE stable. Feels like she is doing pretty good. Denies current weakness in the legs, no recent episodes of falling due to numbness/weakness.- She is walking about 5 miles per day on the treadmill. - Presents with a small surplus of Pointblank. Reports the medication is helpful, denies SEs. No other concerns expressed. low back pain Severity level i s 6. Duration: chronic. The problem is stable. The patient describes the pain as an ache. Symptoms are aggravated by sitting and bending backwards. Symptoms are relieved by exercise, pain meds/drugs, bending forward, reaching, standing and walking. low back pain Severity level i s 5. Duration: chronic. The problem is stable. Comments: Tita presents virtually via [facility] for follow up and medication refill in the setting of chronic low back pain with radiation into the R buttock and intermittently down the R leg. Denies any new health concerns. Inquires about getting a handicap plaque card d/t recent fall r/t R leg sometime giving out when walking. She states it's happened 5-6 times since her back injury in but thought it was r/t an impinged nerve. She describes it as legs becoming numb and tingly before becoming completely weak. States in the last month, this has only happened once.Reports current medication regimen provides 80% pain relief and allows for increased functionality. Continues to utilize Pointblank 10-325mg TID with significant relief. Denies OIC or other side effects from current medication regimen. No other concerns today. Comments: Tita is a 59 y/o female who presents virtually via [facility] for follow up and medication refill in the setting of chronic low back pain with radiation into the R buttock and intermittently down the R leg. Continues with regular stretching with benefit.Reports current medication regimen provides 70% pain relief and allows for increased functionality. Continues to utilize Pointblank 10-325mg TID with significant relief. Denies OIC or other side effects from current medication regimen. No other concerns today. low back pain Severity level i s 4. Duration: chronic. The problem is stable. Location of pain is lower back. Pain is radiated to the LLE. Symptoms are aggravated by sitting and standing. Symptoms are relieved by pain meds/drugs and stretching. Comments: Tita is a 58 y/o female who presents in clinic for follow up and medication refill in the setting of chronic low back pain with radiation into the R buttock and intermittently down the R leg. Continues with regular stretching with benefit.Reports current medication regimen provides 70-80% pain relief and allows for increased functionality. Continues to utilize Pointblank 10-325mg TID with significant relief. Denies OIC or other side effects from current medication regimen. No other concerns today. low back pain Severity level i s 8. Duration: chronic. The problem is stable. Pain is radiated to the right buttock. The client describes the pain as an ache, burning and tingling. Symptoms are aggravated by sitting, bending backward and social activities. Symptoms are relieved by walking, bending forward, standing and reaching overhead. low back pain Severity level i s 6. Duration: chronic. Symptoms are relieved by pain meds/drugs. Comments: Tita is a 58 y/o female who presents via [facility] for follow up and medication refill in the setting of chronic low back pain with radiation into the R buttock and intermittently down the R leg. Pain has been improving this month.Low back pain has stabilized since the completion of the repeat BL L5-S1 TFESI on 06/01/24. Notes the injection provided >50% relief, helped decrease her pain, and improved ROM.Previous complaints of pain underneath the R shoulder blade with tingling down the R arm has improved with a deep tissue massage. She states the massage therapist had worked hard on the area which helped relieved the muscular tension.Reports current medication regimen provides >90% pain relief and allows for increased functionality. Continues to utilize Pointblank 10-325mg TID with significant relief. Denies OIC or other side effects from current medication regimen. No other concerns today. low back pain Severity level i s 7. Duration: chronic. The problem is stable. Comments: Tita is a 58 y/o female who presents via [facility] for follow up and medication refill in the setting of chronic low back pain with radiation into the R buttock and intermittently down the R leg. Pain has been worse overall this month. Ongoing neck and shoulder pain is most bothersome this week. She is s/p BL L5-S1 TFESI on 06/01/24. She reports moderate pain relief. Discussed updated Lumbar MRI from 05/20/24.Continues to have pain underneath the R shoulder blade with tingling down the R arm. Onset of pain started 5-6 weeks ago and describes it as muscular. She reports moderate relief from massages/back rubs from her . She inquires what can be done to manage this pain. Reports current medication regimen provides 70% pain relief and allows for increased functionality. Continues to utilize Pointblank 10-325mg TID with significant short-term relief, but she does not have long lasting relief. Inquires if there is anything else she can take to help her manage the pain. Denies OIC or other side effects from current medication regimen. No other concerns today. Comments: Tita is a 58 y/o female who presents for follow up and medication refill in the setting of chronic low back pain with radiation into the R buttock and intermittently down the R leg. Pain has been fluctuating this month. Ongoing low back pain with radiation into the posterior RLE has been the most bothersome. Describes the symptoms as an ache. Endorses frequent muscle spasms. Had missed 7 days of work in 03/2024 due to the low back pain.Complains of pain underneath the R shoulder blade with tingling down the R arm. Initial onset ~1 week ago when she had tried to lift a mattress by herself. She states staying in one position for too long causes the pain to increase. Notes she had almost dropped a cup recently.Reports current medication regimen provides 70% pain relief and allows for increased functionality. Continues to utilize Pointblank 10-325mg TID with significant benefit but believes she would obtain longer pain coverage if she was taking it 4x/day rather than 3x/day. Inquires if she could increase the Pointblank. Denies OIC or other side effects from current medication regimen. No other concerns today. low back pain Duration: chroni c. The problem is fluctuating. It occurs persistently. The client describes the pain as an ache and tingling. Symptoms are aggravated by sitting and bending backwards. Symptoms are relieved by exercise, pain meds/drugs, walking, standing, bending forward and changing positions. Additional information: Rates low back pain as 2/10 and leg pain as 2-4/10. low back pain Severity level i s 6. Duration: chronic. The problem is stable. It occurs persistently. Symptoms are relieved by pain meds/drugs. Comments: This i s my first evaluation of the patient whose care is routinely managed by my colleague, Angel Aguirre PA-C. Last clinic notes and imaging were reviewed.Tita is a 58 y/o female who presents via [facility] for virtual follow up and medication refill in the setting of chronic low back pain with radiation into the R buttock and intermittently down the R leg. Pain has been fluctuating this month. Believes she may have done too much.Reports current medication regimen provides 80% pain relief and allows for increased functionality. Continues to utilize Pointblank 10-325mg TID with significant benefit. Denies OIC or other side effects from current medication regimen. No other concerns today. Comments: Tita presents virtually for medication management in the setting of chronic low back pain. Has been overall stable. She has been camping this week so she is more active which aggravates her back.She notes that she has been out walking more often following her recent TFESI on 11/07/23. Continues to report significant relief.She is agreeable to complete her annual PT with [facility]. She has gradually lost weight over the past 3 months which is noticeable on her joints. Reports current medication regimen provides 80% pain relief, allowing for increased functionality. Denies side effects from current medication regimen. No other concerns today. Back Pain Severity level i s 4. Duration: chronic. The problem is stable. Location of pain is lower back. tania Montoya is a 58 saurabh old female with complaints of chronic lower back pain. APin ins located itnhe central lower back adn radiates inot her buttoc adn posterior legs. Painsymtpoms includ a deep aching pain and pulling as well as occasioanl sharp shooting ain. Jan reprot soverall he r apin has been weel controlled with medicaiton, exercise, strthcing and use of cold. She is walking daily and is performing daily stretching . She specifically notes flexion exercise help with pain releif as well as lying on the floor and legs up on the wall Back Pain Severity level i s 7. Duration: chronic. The problem is stable. It occurs persistently. Location of pain is lower back. The client describes the pain as an ache and sharp. Symptoms are aggravated by bending, lifting, standing, twisting and walking. Symptoms are relieved by heat, ice, lying down, massage and rest. Comments: Tita presents in clinic for a follow-up and medication management in the setting of chronic low back pain. Has been overall stable, though has been in more pain this week from doing yard work, but states it was completely manageable. Her PHUONG is still providing good relief.She notes that she has been out walking more often following her recent TFESI on 11/07/23. This has allowed her to be more active which has helped her mood and allowed her to be more positive. She is happy with where she is at in her pain management plan as she feels the medications in combination with the procedural management allow her to be more active during the summer.She is agreeable to complete her annual PT with [facility].Reports current medication regimen provides 80% pain relief, allowing for increased functionality. Denies side effects from current medication regimen. No other concerns today. Back Pain Severity level i s 5. Duration: chronic. The problem is stable. Location of pain is lower back. Comments: Tita presents via [facility] for a routine virtual follow-up and medication management in the setting of chronic low back pain. Of note, she is regularly seen by my colleague, Aramis Aguirre PA-C. Previous clinical notes were reviewed.She notes that she has been out walking more often following her recent TFESI on 11/07/2023. She is happy with where she is at in her pain management plan as she feels the medications in combination with the procedural management allow her to be more active during the summer. Reports current medication regimen provides 80% pain relief, allowing for increased functionality. Denies side effects from current medication regimen. No other concerns today. Comments: Tita is a 58 y/o female who presents virtually today for a follow up and medication refill in the setting of chronic low back pain with radiation into the R buttock and R thigh. Pain has been overall stable this month and at a level 6/10.S/p repeat BL L5-S1 TFESI on 11/07/23 with >80% relief and increased functionality. She has been able to walk ~2 miles daily with the warmer weather.Reports current medication regimen provides 90% pain relief and allows for increased functionality. Denies OIC or other side effects from current medication regimen. No other concerns today. Back Pain Severity level i s 6. Duration: chronic. The problem is stable. It occurs persistently. Location of pain is lower back. Comments: Tita is a 58 y/o female who presents in clinic today for a follow up and medication refill in the setting of chronic low back pain with radiation into the R buttock and R thigh. Pain has been overall stable this month.C/o low back pain. Found bending over to provide appreciable pain relief. Express excitement for upcoming BL L5-S1 TFESI on 11/07/2023. Reports current medication regimen provides moderate pain relief and allows for increased functionality. Shares to have used 1 tablet of oxycodone for severe pain and notes it made her drowsy. Denies OIC or other side effects from current medication regimen. No longer interested in using oxycodone. No other concerns today. Back Pain Severity level i s 7. Duration: chronic. The problem is stable. Location of pain is lower back. The client describes the pain as an ache. Symptoms are aggravated by lifting, lying/rest, sitting and prolonged positioning. Symptoms are relieved by massage, pain meds/drugs, stretching, bending forward and changing positions. Comments: Tita is a 58 y/o female who presents virtually via [facility] for a follow up and medication refill in the setting of chronic low back pain with radiation into the R buttock and R thigh. Pain has been overall stable this month, but she has noticed some increased lower back pain onset 09/30/23. Requests to repeat her BL L5-S1 TFESI.Reports current medication regimen provides 40% pain relief and allows for increased functionality. Continues to utilize Pointblank 10-325mg with moderate benefit. Agreeable for a supplemental script while pursuing her repeat injection. Denies OIC or other side effects from current medication regimen. No other concerns today. back pain Severity level i s 7. Duration: chronic. The problem is stable. It occurs persistently. Location of pain is lower back. Comments: Tita is a 57 y/o female who presents virtually via [facility] for a follow up and medication refill in the setting of chronic low back pain with radiation into the R buttock and R thigh. Pain has been stable this month. Shares that she has been staying active and going on walks.Reports current medication regimen provides 75% pain relief and allows for increased functionality. Continues to utilize Pointblank 10-325mg with significant benefit. Denies OIC or other side effects from current medication regimen. No other concerns today. Back pain Severity level i s 6. Duration: chronic. The problem is stable. It occurs persistently. back pain Severity level i s 7. Duration: chronic. The problem is stable. It occurs persistently. Location of pain is middle back and lower back. The client describes the pain as an ache. Symptoms are aggravated by ascending stairs, descending stairs, lying/rest and prolonged positioning. Symptoms are relieved by massage, pain meds/drugs and stretching. Comments: Tita is a 57 y/o female who presents in clinic for a follow up and medication refill in the setting of chronic low back pain with radiation into the R buttock and R thigh. Pain has been stable this month. S/p repeat BL L5-S1 TFESI on 05/09/23 with ongoing relief.Reports current medication regimen provides 80% pain relief and allows for increased functionality. Continues to utilize Pointblank 10-325mg with significant benefit. Presents out of medication today as she was unable to follow up as her normal scheduled appt d/t Covid dx. Denies OIC or other side effects from current medication regimen. No other concerns today. back pain Severity level i s 5. Duration: chronic. The problem is stable. It occurs persistently. Location of pain is lower back. The client describes the pain as an ache. Comments: Tita is a 57 y/o female who presents via [facility] for virtual follow up and medication refill in the setting of chronic low back pain with radiation into the R buttock and R thigh. Pain has been stable this month. S/p repeat BL L5-S1 TFESI on 05/09/23 with >80%relief. States that night after the procedure she woke up with a bad headache and went to the ED. 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 States the MONTGOMERY lasted 7 days before it subsided. The patient thinks it was a coincidence and doesn't believe it was r/t her injection. Notes she would still be open for more ESIs in the future as they give her significant relief.Of note, she reports she has started taking lisinopril and atorvastatin.Reports current medication regimen provides 80% pain relief and allows for increased functionality. Continues to utilize Pointblank 10-325mg with significant benefit. Denies OIC or other side effects from current medication regimen. No other concerns today. Comments: Tita is a 57 y/o female who presents via [facility] for virtual follow up and medication refill in the setting of chronic low back pain with radiation into the R buttock and R thigh. Pain has been stable this month. Repeat BL L5-S1 TFESI scheduled on 05/09/[address] Dueñas. Requests to have the sedation changed to oral. Complains of ongoing upper/mid back pain, worse with turning, twisting, and sudden movements. She states the pain is manageable for now and will consider imaging if it worsens. Reports current medication regimen provides 90% pain relief and allows for increased functionality. Continues to utilize Pointblank 10-325mg with significant benefit. Denies OIC or other side effects from current medication regimen. No other concerns today. Back Pain Severity level i s 4. Duration: chronic. The problem is stable. It occurs persistently. Symptoms are relieved by pain meds/drugs. back pain Severity level i s 8. Duration: chronic. The problem is stable. It occurs persistently. The client describes the pain as an ache and tingling. Symptoms are aggravated by lifting and movement. Symptoms are relieved by pain meds/drugs, stretching, rest and changing positions. Comments: Tita is a 57 y/o female who presents in clinic for follow up and medication refill in the setting of chronic low back pain with radiation into the R buttock and R thigh. Pain has been stable over the past month, but her lower back has been bothersome. She notes her BL L5-S1 TFESI on 10/25/[address] Kokayeff is starting to wear off. Requests to repeat within the month.Also sc/o a sharp pain in her mid-back with turning, twisting and sudden movement. Notes it has been going on for a few weeks and that it feels like a nerve pain. She is scheduled to see her PCP soon and plans to ask about it there, otherwise if the problem worsens she would like to obtain imaging on the thoracic spine.Reports current medication regimen provides significant pain relief and allows for increased functionality. Continues to utilize Pointblank 10-325mg with significant benefit. Denies OIC or other side effects from current medication regimen. No other concerns today. back pain Severity level i s 4. The problem is stable. It occurs persistently. Location of pain is lower back and legs. Comments: Tita is a 57 y/o female who presents virtually for follow up and medication refill in the setting of chronic low back pain with radiation into the R buttock and R thigh. Pain has been stable over the past month and reports no flares over the holiday weekend. She is able to stay active by walking inside on the treadmill.BL L5-S1 TFESI on 10/25/[address] Dueñas continues to provide relief. Notes the injections typically benefit for about 6-8 months before she needs to have a repeat. Reports current medication regimen provides 75% pain relief and allows for increased functionality. Continues to utilize Pointblank 10-325mg with significant benefit. Denies OIC or other side effects from current medication regimen. No other concerns today. back pain Severity level i s 5. Duration: chronic. The problem is stable. Location of pain is lower back. Comments: Tita is a 57 y/o female who presents virtually for follow up and medication refill in the setting of chronic low back pain with radiation into the R buttock and R thigh. Pain has been stable since BRIANNE and reports no flares over the holiday weekend. Notes she is able to walk up to 2 miles every day and this allows her to spend time with her granddaughter. S/p BL L5-S1 TFESI on 10/25/[address] Dueñas continues to provide relief. Notes the injections typically benefit for about 6-8 months before she needs to have a repeat. Reports she an improvement in pain but still experiences soreness in the morning when she first wakes up and when she goes to bed at night.Reports current medication regimen provides 70% pain relief and allows for increased functionality. Continues to utilize Pointblank 10-325mg with significant benefit. Denies OIC or other side effects from current medication regimen. No other concerns today. Back Pain Severity level i s 2. Duration: chronic. The problem is stable. It occurs persistently. The client describes the pain as an ache and burning. Symptoms are aggravated by lifting, lying/rest, sitting, stairs and prolonged positioning. Symptoms are relieved by massage, pain meds/drugs and walking. Comments: Tita is a 57 y/o female who presents for follow up and medication refill in the setting of chronic low back pain with radiation into the R buttock and R thigh. Pain has been stable this month. S/p BL L5-S1 TFESI on 10/25/[address] Dueñas continues to provide relief. Notes the injections typically benefit for about 6 months before she needs to have a repeat. Have seen an improvement in pain but still experiences soreness in the morning when she first wakes up and when she goes to bed at night.Reports current medication regimen provides 75-80% pain relief and allows for increased functionality. Rates her pain as 7/10 without medications and 2/10 with medications. Continues to utilize Pointblank 10-325mg with significant benefit. Denies OIC or other side effects from current medication regimen. No other concerns today. Comments: Tita presents virtually today for a FU and medication management regarding her chronic lower back pain. Pain has been overall stable since BRIANNE. She has been able to walk more and enjoy the warmer weather.Patient is s/p BL L5-S1 PHUONG, completed on 10/25/22 with continued relief today.Of note, PCP is currently prescribing Alprazolam 1mg #30tabs to use sparingly over ~3 months.Current medication regimen provides roughly 75-80% pain relief, allowing for increased functionality. Denies side effects from current medication regimen. No other concerns today. Back pain Severity level i s 5. Duration: chronic. The problem is stable. It occurs persistently. Symptoms are relieved by injection, pain meds/drugs and rest. Back Pain Severity level i s 6. Duration: chronic. The problem is stable. Location of pain is lower back. Comments: Tita presents virtually today for a FU and medication management regarding her chronic lower back pain. Pain has been overall stable since BRIANNE. Patient is s/p BL L5-S1 PHUONG, completed on 10/25/22, and notes a bad headache and flushing following, but then significant benefit after; patient is now able to walk more.Of note, PCP is currently Rx'ing Alprazolam 1mg #30tabs to use sparingly over ~3 months.Current medication regimen provides roughly 75-80% pain relief, allowing for increased functionality. Patient has restarted her Pointblank 10/325 TID since BRIANNE, and is now able to become more active. Denies side effects from current medication regimen. No other concerns today. Back Pain Severity level i s 7. Duration: chronic. The problem is worsening. It occurs persistently. Location of pain is lower back. The client describes the pain as an ache and burning. Symptoms are aggravated by bending, jumping, lifting and prolonged positioning. Symptoms are relieved by pain meds/drugs, sitting, changing positions and walking. Comments: Tita is here today for follow up and medication management, last seen 04/28/21. She returns with lower back pain that has been worse since last OV. Past LESI provided significant relief. Reports she would like to complete every 6 months. Notes she has gained ~50 lbs since she was last seen. Hopes to be more active to lose weight. Reports having a treadmill at home that she plans to use more often.Rx'ed alprazolam 1mg #30tabs to use sparingly over 3 months.Reports current medication regimen provides 50% pain relief and allows increased functionality. States she has not been utilizing medication because she was worried she was becoming addicted. States her father and son are addicts. Would like to continue medication management d/t worsening pain. Denies side effects from current medication regimen. States she has been using Ibuprofen instead, endorses SEs of nausea and vomiting. No other concerns today. Back Pain Duration: chroni c. The problem is stable. It occurs persistently. Location of pain is lower back.The patient describes the pain as an ache, burning and sharp. Symptoms are relieved by pain meds/drugs and rest. Back Pain (comments) Tita is he re today for follow up and medication management. She returns with lower back pain that has been stable since last OV. Continues to report significant relief from LESI. Denies new chronic pain concerns. Requests a refill of current medication regimen. Reports current medication regimen provides 50% pain relief and allows increased functionality. Denies side effects from current medication regimen. No other concerns today. Back Pain (comments) Tita is he re today for follow up and medication management. She returns with lower back pain that has been improving since last OV. Continues to report significant relief from LESI. Denies new chronic pain concerns. Requests a refill of current medication regimen. Reports current medication regimen provides 50% pain relief and allows increased functionality. Denies side effects from current medication regimen. No other concerns today. Back Pain Duration: chroni c. The problem is improving. It occurs persistently. Location of pain is lower back.The patient describes the pain as an ache, burning and sharp. Symptoms are aggravated by ascending stairs, bending, lifting, running, standing, twisting and walking. Symptoms are relieved by pain meds/drugs and rest. Back Pain Severity level i s 8. Duration: chronic. The problem is fluctuating. It occurs persistently. Location of pain is lower back. Pain is radiated to the left calf and right calf.The patient describes the pain as an ache, burning and sharp. Symptoms are aggravated by ascending stairs, changing positions, pushing and standing. Symptoms are relieved by pain meds/drugs and rest. Back Pain (comments) Tita is he re today for follow up and medication management. She returns with lower back pain that has been improving since last OV. Report significant relief from LESI. Denies new chronic pain concerns. Requests a refill of current medication regimen. Reports current medication regimen provides 50% pain relief and allows increased functionality. Denies side effects from current medication regimen. No other concerns today. Back Pain The problem is s table. Location of pain is middle back and lower back.The patient describes the pain as an ache, burning and sharp. Symptoms are aggravated by ascending stairs, bending, changing positions, descending stairs, lifting, standing and walking. Symptoms are relieved by heat, ice, lying down, pain meds/drugs and rest. Back Pain (comments) Tita is he re for follow-up and medication refills. She returns with low back pain which has been worse. She notes her medication wears off quicker than she would like. Notes she can not tolerate ibuprofen. She inquires about an increase in medication. She would also like to repeat a LESI. Of note, she recently fell and got a concussion. She was given flexeril but discontinued after two days d/t headaches. Reports current medication regimen provides at least 50% pain relief. Denies side effects from current medication regimen. No other concerns today. Back Pain (comments) Tita is he re for follow-up and medication refills. Ongoing back pain persists, tolerable with medication. Pain has been relatively stable with occasional flares. Reports she is taking pain medication when she is in pain instead of scheduled. She requests a refill of her current medication regimen as it allows her to complete her ADLs. Reports current medication regimen provides at least 50% pain relief. Denies side effects from current medication regimen. No other concerns today. Back Pain Duration: chroni c. The problem is stable. It occurs persistently. Location of pain is lower back.The patient describes the pain as an ache, burning and sharp. Symptoms are aggravated by ascending stairs, bending, changing positions, descending stairs, lifting, standing and walking. Symptoms are relieved by heat, ice, lying down, pain meds/drugs and rest. Back Pain (comments) Tita is he re for follow-up and medication refills. Ongoing low back pain persists, tolerable with medication. Pain has been worse. Low back pain continues to radiate down her BLE. She feels like her medication regimen is not providing as much relief as it had in the past. She wished her dose was slightly higher on days she has work and is more active. She believes her increase in pain is just a flare and she would like to continue with the current regimen. Reports current medication regimen provides at least 50% pain relief. Denies side effects from current medication regimen. No other concerns today. Back Pain Severity level i s 5. Duration: chronic. The problem is stable. It occurs persistently. Location of pain is lower back and legs.The patient describes the pain as an ache, burning and sharp. Symptoms are aggravated by ascending stairs, bending, changing positions, descending stairs, lifting, standing and walking. Symptoms are relieved by heat, ice, lying down, pain meds/drugs and rest. Back Pain (comments) Patient is here for follow-up and medication refills. Ongoing low back pain persists, tolerable with medication. Pain has been relatively stable with occasional flares related to cleaning out her garage. Life stressors continue to exacerbate her pain. Her PCP gave her small rx of alprazolam to control anxiety related to stressors. She requests a refill of her current medication regimen as it allows her to complete her ADLS. Reports current medication regimen provides at least 50% pain relief. Denies side effects from current medication regimen. No other concerns today. Back Pain Severity level i s 5. Duration: chronic. The problem is stable. It occurs persistently. Location of pain is lower back.The patient describes the pain as an ache, burning and sharp. Symptoms are aggravated by ascending stairs, bending, lifting and standing. Symptoms are relieved by heat, ice, lying down and pain meds/drugs. Back Pain Duration: chroni c. The problem is stable. It occurs persistently. Location of pain is lower back.The patient describes the pain as an ache, burning and sharp. Symptoms are aggravated by ascending stairs, changing positions, descending stairs, lifting and standing. Symptoms are relieved by heat, ice, lying down, pain meds/drugs and rest. Back Pain (comments) Tita is he re for follow-up and medication refills. Ongoing low back pain persists, tolerable with medication. Pain has been stable with occasional flares related to stress. Her brother in law recently which has caused some flares in her pain. She is surrounded by friends and family to help her go through the grieving process. The current medication regimen continues to provide significant relief and she requests a refill.Reports current medication regimen provides at least 50% pain relief. Denies side effects from current medication regimen. No other concerns today. Back Pain Severity level i s 2. Duration: chronic. The problem is stable. Location of pain is lower back.The patient describes the pain as an ache, burning and sharp. Symptoms are aggravated by ascending stairs, changing positions, descending stairs, lifting and standing. Symptoms are relieved by heat, ice, lying down, pain meds/drugs and rest. Back Pain (comments) Tita is he re for virtual follow-up and medication refills. Ongoing low back pain persists, tolerable with medication. Pain has remained stable with no changes. She has had a headache for the last two days related to stress. Requests a refill of her current medication regimen as it allows her to complete her ADLs. Reports her sister has noticed a difference in her productivity while taking her medication. Reports current medication regimen provides at least 50% pain relief. Denies side effects from current medication regimen. No other concerns today. Back Pain Severity level i s 5. Duration: chronic. The problem is stable. It occurs persistently. Location of pain is lower back.The patient describes the pain as an ache, burning and sharp. Symptoms are aggravated by lying/rest and sitting. Symptoms are relieved by lying down, massage, pain meds/drugs, rest and changing positions. Back Pain (comments) Tita is he re for virtual follow-up and medication refills. She presents with low back pain which has been slightly worse. She believes this related to holiday stressors and the cold weather. Pain continues to intermittently radiate down her right leg. Requests to continue with the current medication regimen as it allows her to complete her ADLs without limitations. Reports current medication regimen provides at least 50% pain relief. Denies side effects from current medication regimen. No other concerns today. Back Pain (comments) Tita is he re for follow-up and medication refills. Ongoing back pain persists, tolerable with medication. Pain has been stable and improving throughout the month. She has been walking every 2.5 miles daily to stay active and maintain her mental health. She would like to continue with the current medication regimen as it allows her to complete her ADLs without limitations. Reports current medication regimen provides at least 50% pain relief. Denies side effects from current medication regimen. No other concerns today. Back Pain Severity level i s 3. Duration: chronic. Location of pain is lower back.The patient describes the pain as an ache, burning and sharp. Symptoms are aggravated by lifting, sitting and prolonged positioning. Symptoms are relieved by lying down, massage, pain meds/drugs, sitting and changing positions. Back Pain Severity level i s 2. Duration: chronic. The problem is stable. It occurs persistently. Location of pain is lower back.The patient describes the pain as an ache and numbness. Symptoms are aggravated by ascending stairs, descending stairs, lying/rest and sitting. Symptoms are relieved by massage, pain meds/drugs, rest and changing positions. Back Pain (comments) Tita is he re for follow-up and medication refills. Ongoing low back pain persists, tolerable with medication. Her pain has continued to be stable. Her entire family contracted COVID-19 at the beginning of April and she has completely recovered since then. She went to the hospital for dehydration. She would like to continue with the current medication.Reports current medication regimen provides at least 50% pain relief. Denies side effects from current medication regimen. No other concerns today. Back Pain Severity level i s 5. Duration: chronic. The problem is stable. It occurs intermittently. Location of pain is lower back and L leg. Symptoms are aggravated by lifting, lying/rest, prolonged positioning and sitting. Symptoms are relieved by massage, standing and walking. Back Pain (comments) Tita is he re for follow-up and medication refills. She presents with low back and occasional L leg pain. Her pain has been stable with occasional flares. Reports she occasionally will take an extra half pill with pain flares but will make up for it on days when her pain is stable. She continues to stay active by walking daily. Reports current medication regimen provides at least 50% pain relief. Denies side effects from current medication regimen. No other concerns today. Back Pain Severity level i s 6. Duration: chronic. The problem is stable. It occurs intermittently. Location of pain is lower back.The patient describes the pain as an ache and numbness. Symptoms are aggravated by lying/rest, sitting and prolonged positioning. Symptoms are relieved by pain meds/drugs. Back Pain (comments) Tita is he re for follow-up and medication refills. Ongoing low back pain remains stable with the current medication regimen. Notes that she has started jogging with her son which has aggravated her pain slightly. She agrees to rest between workouts to prevent burn out. She would like to continue with the current medication regimen.Reports current medication regimen provides 50% pain relief. Denies side effects from current medication regimen. No other concerns today. Back Pain Severity level i s 3. Duration: chronic. The problem is stable. It occurs persistently. Location of pain is lower back. Pain is radiated to the R leg.The patient describes the pain as an ache, numbness and tingling. Symptoms are aggravated by bending, lifting and lying/rest. Symptoms are relieved by pain meds/drugs, standing and walking. Back Pain (comments) Tita is he re for virtual follow-up and medication refills. She presents with low back pain that radiates down her R leg. Her pain has been improving this month and her family has noticed a difference in her mood and pain level.Reports current medication regimen provides 80% pain relief. Denies side effects from current medication regimen. No other concerns today. Back Pain (comments) Tita prese nts for a virtual follow up and medications refill for her back pain with some radicular pain into her R buttocks. States that her pain has been stable overall. Pain is still well managed by her medications which has allowed her to start exercising once again and participate in more activities such as camping and fishing. Reports current medication regimen provides 70+% pain relief and allows for increased functionality. Denies side effects from current medication regimen.No other concerns today. Back Pain Severity level i s 3. Duration: chronic. The problem is stable. It occurs persistently. Location of pain is lower back. Pain is radiated to the R leg.The patient describes the pain as an ache and numbness. Symptoms are aggravated by bending, lying/rest and sitting. Symptoms are relieved by pain meds/drugs and rest. Back Pain Severity level i s 3. Duration: chronic. The problem is stable. It occurs persistently. Location of pain is lower back. Pain is radiated to the left thigh and right thigh.The patient describes the pain as an ache, numbness and tingling. Symptoms are aggravated by lifting, lying/rest, sitting and prolonged positioning. Symptoms are relieved by pain meds/drugs, stretching and standing. Back Pain (comments) Tita is he re for a follow up via virtual visit.Low back pain remains stable since last OV, R low back is the most bothersome. Denies tenderness in R hip. Reports that the increase in Pointblank has helped significantly and improves her ability to function. She feels that her pain is fully manageable with her medications and allows her to be more active and improves her movement. States that her mother noticed such a difference in her pain management lately which has made her very happy. low back pain Severity level i s 4. Duration: chronic. The problem is stable. It occurs persistently. The patient describes the pain as an ache, numbness and tingling. Symptoms are aggravated by ascending stairs, descending stairs, lying/rest and sitting. Symptoms are relieved by ice, stretching, changing positions, standing and walking. low back pain (comments) Tita perez resents for a follow up and medication refill regarding persistent lower back pain. Prescribed medication offers 60% pain relief. Denies SE. She is happy with relief offered with Pointblank, however continues to experience elevated pain at night which typically wakes her. Ongoing benefit with walking and stretching she learned through past PT.No further questions or concerns. low back pain Duration: chroni c. The problem is stable. It occurs persistently. Location of pain is lower back.The patient describes the pain as an ache and numbness. Symptoms are aggravated by lying/rest. Symptoms are relieved by ice, pain meds/drugs, stretching and standing. low back pain (comments) Tita i s here for a followup after initial consult via [facility] Virtual Visit. Low back pain persists. She I staying active through biking and walking which helps improve her pain and overall functioning.She requests hydrocodone rx refill today. Pt reviewed [employer] and completed OARS which was low riskNo other concerns today. low back pain Severity level i s 6. Duration: chronic. It occurs persistently. Location of pain is lower back, right buttock and right leg.The patient describes the pain as an ache and numbness. Symptoms are aggravated by ascending stairs, changing positions, descending stairs, lying/rest and sitting. Symptoms are relieved by pain meds/drugs, stretching, walking and standing. low back pain (comments) Tita huerta s here for an initial consult via [facility] Virtual Visit and presents with low back and radiating right buttock and thigh pain, initial onset 7 years ago. She explains that if she bends too far she feels like her back is going to break. She goes for walks which helps manage her pain and overall functioning.Referred by Dr. Jones. Reports competing MRI and X-ray at [facility] about 6 months ago.Treatment Tried:PHUONG at [facility] - helpful in the past, last few not relief.Currently taking Pointblank to manage pain - helpful.ice and hot baths - helpful.PT 05/10 - 10/09 - not helpful.Gabapentin - caused stomach upset.cyclobenzaprine, ibuprofen, oxycodone.Pt goal: [facility] to take over pain management. She would prefer to hold off on surgery.Reports hx of depression, currently stable, has in home therapist. Functional Status Date Functional Assessmen t No Information Instructions Date Instruction Additional Infor mation Lifestyle education regarding di et Related to Body mass index [BMI] 26.0-26.9, adult Lifestyle education regarding di et Related to Body mass index [BMI] 31.0-31.9, adult Lifestyle education regarding di et Related to Body mass index [BMI] 40.0-44.9, adult Lifestyle education regarding di et Related to Body mass index [BMI] 40.0-44.9, adult Assessments Type Assessment Date assessment Chronic pain syndrome impression Chronic low back nae n with radiation into the R buttock and intermittently down the R leg. Initial onset 8+ years ago after falling off a horse. Hx of high anxiety (currently managed on Xanax 0.5mg TID)Today, c/o new neck pain, radiating into RUE after pulling a muscle at work. Denies numbness or tingling. Pt will monitor for next couple of weeks and utilize ice/heat to manage for now. Also agreeable to trial salonpas patches assessment Radiculopathy, lumbar region Mar impression Ongoing low back nae n with radiation into the R buttock and intermittently down the R leg (posterior thigh). Has been endorsing weakness in RLE since back injury since , causing fall x 1. Stable today[Forwarded Hx]* S/p Repeat BL L5-S1 TFESI on 06/01/24 provided >50% pain relief* Tried: BL L5-S1 TFESI x4 (>80% benefit for 6+ months)* Last completed Lumbar on 05/20/24 assessment detention (current) use of opiat e analgesic impression The medication provi hossein 80% pain relief, does not cause significant side effects, increases the patient's daily activity level. Presents with a surplus of the medication today.Tried: Oxycodone 5mg (drowsiness).MME is 30mg/day assessment Myalgia, other site impression Today, c/o new neck pain, radiating into RUE after pulling a muscle at work. Denies numbness or tingling. Pt will monitor for next couple of weeks and utilize ice/heat to manage for now. Also agreeable to trial salonpas patches Mental Status Date Cognitive Assessment Orientation - [place] ed to time, place, person, situation. Patient Care Teams Name Effective Dates (start - stop) Status Members No Information
--- OUTSIDE RECORDS SUMMARY | 2025-04-21 05:57 | XMS_ITS | Continuity of Care Document ---
Author Organization [facility] dayanara Address [address] [facility] [place] [address] Phone Care Team Providers Care Voice Writing Reporter Name Role Phone Yane ROSETTA Mary Alice [...] Copied on Encounter OFFICE VISIT, EST TELEMEDICINE [facility], [address] [place], [place], [id number] , [place] tel:[phone] [facility] [place] Widespread pain (chief complaint) Chronic pain syndromeRadicul opathy, lumbar regionLong term (current) use of opiate analgesicMyalgi a, other site [address] [facility] [place] [address] [address], [place], [place], [id number], [place]. tel:[phone] OFFICE/OUTPAT IENT VISIT, [facility], [address] [place], [place], [id number] , [place] tel:[phone] [facility] low back pain (chief complaint) Chronic pain syndromeRadicul opathy, lumbar regionLong term (current) use of opiate analgesic 5 Shabbir Jara. [address] [place], [place], [id number], [place]. tel:[phone] Referring Provider: Ramirez Norris, [address] [place], [address] . tel:[phone] OFFICE VISIT, [facility], [address] [place] [address], [id number] , [place] tel:[phone] [facility] low back pain (chief complaint) Chronic pain syndromeRadicul opathy, lumbar regionLong term (current) use of opiate analgesic 5 [facility] [address] [facility] [address], [place], [id number], [place]. tel:[phone] Referring Provider: Ramirez Norris, [address] [place], [place] [address], [address] . tel:[phone] OFFICE VISIT, [facility], [address] [place] [address], [id number] , [place] tel:[phone] [facility] Pain [facility] low back pain (chief complaint) Chronic pain syndromeRadicul opathy, lumbar regionLong term (current) use of opiate analgesic [address] [facility], [place], [id number], [place]. tel:[phone] OFFICE/OUTPAT IENT VISIT, [facility], [address] [place] [address], [id number] , [place] tel:[phone] [facility] low back pain (chief complaint) Chronic pain syndromeRadicul opathy, lumbar regionLong term (current) use of opiate analgesicEncoun ter for therapeutic drug level monitoring 5 Tori Dana. [address] [place], [place], [id number], [place]. tel:[phone] Referring Provider: Ramirez Norris, [address] [place] [address] [place], [address] . tel:[phone] OFFICE VISIT, [facility], [address] [place] [address], [id number] , [place] tel:[phone] [facility] Pain [facility] low back pain (chief complaint) Chronic pain syndromeRadicul opathy, lumbar regionLong term (current) use of opiate analgesic 5 Yane Wheat. [address] [facility] [address], [place], [id number], [place]. tel:[phone] OFFICE VISIT, [facility], [address] [place] [address], [id number] , [place] tel:[phone] [facility] low back pain (chief complaint) Chronic pain syndromeRadicul opathy, lumbar regionLong term (current) use of opiate analgesic 5 Yane Wheat. [address] [facility] [address], [place], [id number], [place]. tel:[phone] OFFICE/OUTPAT IENT VISIT, [facility], [address] [place] [address], [id number] , [place] tel:[phone] [facility] low back pain (chief complaint) Radiculopathy, lumbar regionLong term (current) use of opiate analgesicChroni c pain syndrome 5 Deborah Marcial. [address] [place] [address], [id number], [place]. tel:[phone] Referring Provider: Ramirez Norris, [address] [place], [place] [address], [address] . tel:[phone] OFFICE VISIT, [facility], [address] [place] [address], [id number] , [place] tel:[phone] [facility] Pain [facility] low back pain (chief complaint) Radiculopathy, lumbar regionLong term (current) use of opiate analgesicChroni c pain syndrome 4 Yane Wheat. [address] [facility] [address], [place], [id number], [place]. tel:[phone] Referring Provider: Ramirez Norris, [address] [place], [place] [address], [address] . tel:[phone] OFFICE VISIT, [facility], [address] [place] [address], [id number] , [place] tel:[phone] [facility] Pain [facility] low back pain (chief complaint) Radiculopathy, lumbar regionLong term (current) use of opiate analgesicChroni c pain syndromeAnxiety disorder, unspecified 4 Hermila Louis. [address] [facility] [address], [place], [id number], [place]. tel:[phone] Referring Provider: Ramirez Norris, [address] [place] [address] [place], [address] . tel:[phone] [facility], [address] [place] [address], [id number] , [place] [phone] [facility] Radiculopathy, lumbar region 4 Murphymylessaud Marino. [address] [place] [address], [id number], [place]. tel:[phone] Referring Provider: Ramirez Norris, [address] [place] [address] [place], [address] . tel:[phone] OFFICE/OUTPAT IENT VISIT, EST [facility], [address] [place] [address], [id number] , [place] [phone] [facility] low back pain (chief complaint) Radiculopathy, lumbar regionLong term (current) use of opiate analgesicChroni c pain syndromeAnxiety disorder, unspecifiedEnco unter for therapeutic drug level monitoring 4 Davinabrigido Wheat. [address] [facility] [address] [facility] [address], [place], [id number], [place]. tel:[phone] Referring Provider: Ramirez Norris, [address] [place] [address] [place], [address] . tel:[phone] OFFICE VISIT, EST TELEMEDICINE [facility], [address] [place] [address], [id number] , [place] [phone] [facility] Pain [facility] low back pain (chief complaint) Radiculopathy, lumbar regionLong term (current) use of opiate analgesicChroni c pain syndromeAnxiety disorder, unspecified 4 Yane Wheat. [address] [facility] [address], [place], [place], [id number], [place]. tel:[phone] Referring Provider: Ramirez Norris, [address] [place], [place] [address], [address] . tel:[phone] OFFICE VISIT, [facility], [address] [place] [address], [id number] , [place] tel:[phone] [facility] Back Pain (chief complaint) Radiculopathy, lumbar regionLong term (current) use of opiate analgesicOther chronic pain 4 Carla [place], [address] [place], [address], [place]. tel:[phone] [facility], [address] [place] [address], [id number] , [place] tel:[phone] [facility] Pain [facility] lumbago (chief complaint) Radiculopathy, lumbar region 4 Monique Hillman. [address] [place] [address], [id number], [place]. tel:[phone] OFFICE/OUTPAT IENT VISIT, [facility], [address] [place] [address], [id number] , [place] tel:[phone] [facility] Pain [facility] Back Pain (chief complaint) Other chronic painRadiculopat hy, lumbar regionLong term (current) use of opiate analgesicEncoun ter for therapeutic drug level monitoring 4 Carla [place], [address] [place], [address], [place]. tel:[phone] Referring Provider: Ramirez Norris, [address] [place] [address] [place], [address] . tel:[phone] OFFICE VISIT, [facility] TELEMEDICINE [facility], [address] [place] [address], [id number] , [place] [phone] [facility] [place] Back Pain (chief complaint) Other chronic painRadiculopat hy, lumbar regionLong term (current) use of opiate analgesic 4 Adalgisa Jennings. [address], [place], [place], [id number], [place]. tel:[phone] Referring Provider: Ramirez Norris, [address] [place], [place] [address], [address] . tel:[phone] OFFICE VISIT, [facility] TELEMEDICINE [facility], [address] [place] [address], [id number] , [place] tel:[phone] [facility] Pain [facility] Back Pain (chief complaint) Other chronic painRadiculopat hy, lumbar regionLong term (current) use of opiate analgesic 4 Carla Ortiz. [place], [address] [place], [address], [place]. tel:[phone] Referring Provider: Ramirez Norris, [address] [place], [place] [address], [address] . tel:[phone] [facility], [address] [place] [address], [id number] , [place] tel:[phone] [facility] Radiculopathy, lumbar region 4 Spenser Robles. [address] [place], [place], [id number], [place]. tel:[phone] Referring Provider: Safia Apodaca [address] [place], [address]. tel:[phone] OFFICE/OUTPAT IENT VISIT, [facility], [address] [place] [address], [id number] , [place] tel:[phone] [facility] Back Pain (chief complaint) Other chronic painRadiculopat hy, lumbar regionLong term (current) use of opiate analgesic 4 Carla Baig, [address] [place], [address], [place]. tel:[phone] Referring Provider: Ramirez Norris, [address] [place] [address], [address] . tel:[phone] OFFICE VISIT, [facility], [address] [place] [address], [id number] , [place] tel:[phone] [facility] back pain (chief complaint) Other chronic painRadiculopat hy, lumbar regionLong term (current) use of opiate analgesic 4 Carla [place], [address] [place], [address], [place]. [phone] OFFICE VISIT, [facility], [address] [place] [address], [id number] , [place] tel:[phone] [facility] Back pain (chief complaint) Other chronic painRadiculopat hy, lumbar regionLong term (current) use of opiate analgesic 4 Carla [place], [address] [place], [address], [place]. [phone] Referring Provider: Ramirez Norris, [address] [place] [address], [address] . tel:[phone] OFFICE/OUTPAT IENT VISIT, [facility], [address] [place] [address], [id number] , [place] tel:[phone] [facility] back pain (chief complaint) Other chronic painRadiculopat hy, lumbar regionLong term (current) use of opiate analgesicEncoun ter for therapeutic drug level monitoring 4 Carla Baig, [address] [place], [address], [place]. tel:[phone] Referring Provider: Ramirez Norris, [address] [place] [address], [address] . tel:[phone] OFFICE VISIT, [facility], [address] [place] [address], [id number] , [place] [phone] [facility] back pain (chief complaint) Other chronic painRadiculopat hy, lumbar regionLong term (current) use of opiate analgesic 3 Carla Baig, [address] [place], [address], [place]. tel:[phone] [facility], [address] [place] [address], [id number] , [place] [phone] [facility] Radiculopathy, lumbar region 3 Spenser Robles. [address] [place], [place], [id number], [place]. tel:[phone] Referring Provider: Safia Apodaca [address] [place], [address]. tel:[phone] OFFICE VISIT, [facility] TELEMEDICINE [facility], [address] [place] [address], [id number] , [place] [phone] [facility] Back Pain (chief complaint) Other chronic painRadiculopat hy, lumbar regionLong term (current) use of opiate analgesic 3 Carla Baig, [address] [place], [address], [place]. tel:[phone] Referring Provider: Ramirez Norris, [address] [place] [address], [address] . tel:[phone] OFFICE/OUTPAT IENT VISIT, [facility], [address] [place] [address], [id number] , [place] [phone] [facility] back pain (chief complaint) Radiculopathy, lumbar regionOther chronic painLong term (current) use of opiate analgesicEncoun ter for therapeutic drug level monitoring 3 Carla Baig, [address] [place], [address], [place]. tel:[phone] Referring Provider: Safia Apodaca [address] [place], [address]. tel:[phone] [facility], [address] [place] [address], [id number] , [place] tel:[phone] [facility] No Information 3 Carla [place], [address] [place], [address], [place]. tel:[phone] OFFICE VISIT, [facility], [address] [place] [address], [id number] , [place] tel:[phone] [facility] back pain (chief complaint) Other chronic painRadiculopat hy, lumbar regionLong term (current) use of opiate analgesic Feb- 3 Carla [place], [address] [place], [address], [place]. tel:[phone] OFFICE VISIT, [facility], [address] [place] [address], [id number] , [place] tel:[phone] [facility] back pain (chief complaint) Other chronic painRadiculopat hy, lumbar regionLong term (current) use of opiate analgesic Jan- 3 Carla Baig, [address] [place], [address], [place]. tel:[phone] Referring Provider: Ramirez Norris, [address] [place], [address] . tel:[phone] OFFICE/OUTPAT IENT VISIT, [facility], [address] [place] [address], [id number] , [place] tel:[phone] [facility] Back Pain (chief complaint) Other chronic painRadiculopat hy, lumbar regionLong term (current) use of opiate analgesic 3 Carla Baig, [address] [place], [address], [place]. [phone] Referring Provider: Safia Apodaca [address] [place], [address]. tel:[phone] [facility], [address] [place] [address], [id number] , [place] tel:[phone] [facility] No Information 3 Carla [place], [address] [place], [address], [place]. tel:[phone] OFFICE VISIT, EST TELEMEDICINE [facility], [address] [place] [address], [id number] , [place] tel:[phone] [facility] Back pain (chief complaint) Other chronic painOther intervertebral disc degeneration, lumbar regionRadiculop athy, lumbar regionLong term (current) use of opiate analgesic November- 3 Carla [place], [address] [place], [address], [place]. tel:[phone] Referring Provider: Ramirez Norris, [address] [place] [address], [address] . tel:[phone] OFFICE VISIT, EST TELEMEDICINE [facility], [address] [place] [address], [id number] , [place] tel:[phone] [facility] Back Pain (chief complaint) Other chronic painOther intervertebral disc degeneration, lumbar regionRadiculop athy, lumbar regionLong term (current) use of opiate analgesic 3 Carla Baig, [address] [place], [address], [place]. tel:[phone] [facility], [address] [place] [address], [id number] , [place] tel:[phone] [facility] Radiculopathy, lumbar region Sep- 3 Spenser Robles. [address] [place], [place], [id number], [place]. tel:[phone] Referring Provider: Safia Apodaca [address] [place], [address]. tel:[phone] [facility], [address] [place] [address], [id number] , [place] tel:[phone] [facility] No Information 3 Carla [place], [address] [place], [address], [place]. tel:[phone] OFFICE/OUTPAT IENT VISIT, [facility], [address] [place] [address], [id number] , [place] [phone] [facility] Back Pain (chief complaint) Other chronic painOther intervertebral disc degeneration, lumbar regionRadiculop athy, lumbar regionLong term (current) use of opiate analgesic 3 Carla [place], [address] [place], [address], [place]. tel:[phone] Referring Provider: Safia Apodaca [address] [place], [place], [facility]. tel:[phone] OFFICE VISIT, [facility], [address] [place] [address], [id number] , [place] [phone] [facility] Back Pain (chief complaint) Other chronic painRadiculopat hy, lumbar regionOther intervertebral disc degeneration, lumbar regionLong term (current) use of opiate analgesic Oct-0 1 Carla Baig, [address] [place], [address], [place]. tel:[phone] Referring Provider: Ramirez Norris, [address] [place], [place] [address], [address] . tel:[phone] OFFICE VISIT, [facility], [address] [place] [address], [id number] , [place] tel:[phone] [facility] Back Pain (chief complaint) Radiculopathy, lumbar regionOther intervertebral disc degeneration, lumbar regionOther chronic painLong term (current) use of opiate analgesic Sep-0 1 Carla Baig, [address] [place], [address], [place]. tel:[phone] Referring Provider: Ramirez Norris, [address] [place], [place] [address], [address] . tel:[phone] OFFICE VISIT, EST TELEMEDICINE [facility], [address] [place] [address], [id number] , [place] [phone] [facility] Back Pain (chief complaint) Radiculopathy, lumbar regionOther intervertebral disc degeneration, lumbar regionOther chronic painLong term (current) use of opiate analgesic 1 Carla Baig, [address] [place], [address], [place]. tel:[phone] Referring Provider: Ramirez Norris, [address] [place] [address] [place], [address] . tel:[phone] [facility], [address] [place] [address], [id number] , [place] [phone] [facility] Radiculopathy, lumbar region 1 Spenser Robles. [address] [place] [address], [id number], [place]. tel:[phone] Referring Provider: Safia Apodaca [address] [place], [address]. tel:[phone] OFFICE VISIT, EST TELEMEDICINE [facility], [address] [place] [address], [id number] , [place] [phone] [facility] Back Pain (chief complaint) Radiculopathy, lumbar regionOther intervertebral disc degeneration, lumbar regionOther chronic painLong term (current) use of opiate analgesic 1 Carla Baig, [address] [place], [address], [place]. tel:[phone] Referring Provider: Ramirez Norris, [address] [place] [address] [place], [address] . tel:[phone] OFFICE VISIT, EST [facility], [address] [place] [address], [id number] , [place] [phone] [facility] Back Pain (chief complaint) Other intervertebral disc degeneration, lumbar regionOther chronic painLong term (current) use of opiate analgesicRadicu lopathy, lumbar region May-2 6-202 1 Aguirre Dan. [place], [address] [place], [address], [place]. tel:[phone] Referring Provider: Ramirez Norirs, [address] [place] [address], [address] . tel:[phone] OFFICE VISIT, EST TELEMEDICINE [facility], [address] [place] [address], [id number] , [place] [phone] [facility] Back Pain (chief complaint) Other intervertebral disc degeneration, lumbar regionOther chronic painLong term (current) use of opiate analgesicRadicu lopathy, lumbar region May-0 3- 1 Aguirre AngelNaida [place], [address] [place], [address], [place]. tel:[phone] Referring Provider: Ramirez Norris, [address] [place] [address], [address] . tel:[phone] OFFICE VISIT, EST [facility], [address] [place] [address], [id number] , [place] tel:[phone] [facility] Back Pain (chief complaint) Other intervertebral disc degeneration, lumbar regionOther chronic painLong term (current) use of opiate analgesicRadicu lopathy, lumbar region Apr-0 2-202 1 Aguirre Dan. Baig, [address] [facility], [place], [address], [place]. tel:[phone] Referring Provider: Ramirez Norris, [address] [place] [address], [address] . tel:[phone] OFFICE VISIT, EST [facility], [address] [place] [address], [id number] , [place] tel:[phone] [facility] Back Pain (chief complaint) Other intervertebral disc degeneration, lumbar regionOther chronic painLong term (current) use of opiate analgesicRadicu lopathy, lumbar region Mar-0 2-202 1 Aguirre Angel. [place], [address] [place], [address], [place]. tel:[phone] Referring Provider: Ramirez Norris, [address] [place] [address] [place], [address] . tel:[phone] OFFICE VISIT, [facility], [address] [place] [address], [id number] , [place] tel:[phone] [facility] Back Pain (chief complaint) Other intervertebral disc degeneration, lumbar regionOther chronic painLong term (current) use of opiate analgesicRadicu lopathy, lumbar region Feb-0 2- 1 Aguirre Angel. [place], [address] [place], [address], [place]. tel:[phone] Referring Provider: Ramirez Norris, [address] [place] [address] [place], [address] . tel:[phone] OFFICE VISIT, [facility], [address] [place] [address], [id number] , [place] tel:[phone] [facility] Back Pain (chief complaint) Other intervertebral disc degeneration, lumbar regionOther chronic painLong term (current) use of opiate analgesic Dec-3 0- 0 Aguirre Angel. [place], [address] [place], [address], [place]. tel:[phone] Referring Provider: Ramirez Norris, [address] [place] [address] [place], [address] . tel:[phone] OFFICE VISIT, [facility], [address] [place] [address], [id number] , [place] tel:[phone] [facility] Back Pain (chief complaint) Other intervertebral disc degeneration, lumbar regionOther chronic painLong term (current) use of opiate analgesicRadicu lopathy, lumbar region Nov-3 0-202 0 Aguirre Angel. [place], [address] [place], [address], [place]. tel:[phone] Referring Provider: Ramirez Norris, [address] [place] [address], [address] . tel:[phone] OFFICE VISIT, [facility] [facility], [address] [place] [address], [id number] , [place] tel:[phone] [facility] Back Pain (chief complaint) Other intervertebral disc degeneration, lumbar regionOther chronic painLong term (current) use of opiate analgesicRadicu lopathy, lumbar region Oct-2 9-202 0 Aguirre Angel. [facility], [address] [place], [address], [place]. tel:[phone] Referring Provider: Ramirez Norris, [address] [place] [address], [address] . tel:[phone] OFFICE VISIT, [facility], [address] [place] [address], [id number] , [place] [phone] [facility] Back Pain (chief complaint) Other intervertebral disc degeneration, lumbar regionOther chronic painLong term (current) use of opiate analgesicRadicu lopathy, lumbar region Oct-0 2-202 0 Aguirre Angel. [facility], [address] [place], [address], [place]. tel:[phone] Referring Provider: Ramirez Norris, [address] [place], [place] [address], [address] . tel:[phone] OFFICE VISIT, [facility], [address] [place] [address], [id number] , [place] tel:[phone] [facility] Back Pain (chief complaint) Other intervertebral disc degeneration, lumbar regionOther chronic painLong term (current) use of opiate analgesicRadicu lopathy, lumbar region Sep-0 3-202 0 Aguirre Angel. [facility], [address] [place], [address], [place]. tel:[phone] Referring Provider: Ramirez Norris, [address] [place], [place] [address], [address] . tel:[phone] OFFICE VISIT, [facility], [address] [place] [address], [id number] , [place] tel:[phone] [facility] Back Pain (chief complaint) Other intervertebral disc degeneration, lumbar regionOther chronic painLong term (current) use of opiate analgesicRadicu lopathy, lumbar region Jan-3 0-202 0 Aguirre Angel. [facility], [address] [place], [address], [place]. tel:[phone] Referring Provider: Ramirez Norris, [address] [place] [address] [place], [address] . tel:[phone] OFFICE VISIT, [facility], [address] [place] [address], [id number] , [place] tel:[phone] [facility] Back Pain (chief complaint) Other intervertebral disc degeneration, lumbar regionOther chronic painLong term (current) use of opiate analgesicRadicu lopathy, lumbar region Jan-0 2-202 0 Aguirre Angel. [facility], [address] [place], [address], [place]. tel:[phone] Referring Provider: Ramirez Norris, [address] [place], [place] [address], [address] . 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 [facility], [address] [place], [address], [place]. tel:[phone] Referring Provider: Ramirez Norris, [address] [place], [place] [address], [address] . tel:[phone] OFFICE VISIT, [facility], [address] [place] [address], [id number] , [place] [phone] [facility] low back pain (chief complaint) Chronic pain syndromeOther intervertebral disc degeneration, lumbar regionDepressio nLong term (current) use of opiate analgesic November-0 - 0 Carla Ortiz. [facility], [address], [place], [address], [place]. tel:[phone] Referring Provider: Ramirez Norris, [address] [place] [address], [address] . tel:[phone] [facility], [address] [place] [address], [id number] , [place] tel:[phone] [facility] No Information Oct-0 0 Nyongesa Mary [place]. [address] [facility] [address], [place], [id number], [place]. tel:[phone] Referring Provider: Ramirez Norris, [address] [place] [address], [address] . tel:[phone] [facility], [address] [place] [address], [id number] , [place] tel:[phone] [facility] No Information 0 0 Shabbir Estefani. [address] [place] [address], [id number], [place]. tel:[phone] OFFICE VISIT, [facility], [address] [place] [address], [id number] , [place] [phone] [facility] low back pain (chief complaint) Chronic pain syndromeOther intervertebral disc degeneration, lumbar regionDepressio n Oct-0 6 0 Nyongesa [place]. [address] [facility] [address], [place], [id number], [place]. tel:[phone] OFFICE/OUTPAT IENT VISIT, [facility], [address] [place] [address], [id number] , [place] [phone] [facility] low back pain (chief complaint) Chronic pain syndromeOther intervertebral disc degeneration, lumbar regionDepressio n Sep- 1-202 0 Nyongesa [place]. [address] [facility] [address], [place], [id number], [place]. tel:[phone] Family History Family Member Type Diagnosis Age At Onset Sister Problem disc degeneration Father Problem disc degeneration Payers Payer name Insurance type Covered constitution party ID [facility]kie salmon[facility]juliet) [id number] Social History Type Description Quantity Date Captured [...] Of Treatment Date Type Action Status Goal SPECIAL DELIVERY MESSENGER Scanned. Due on due Goal CT-Colonography. Due on due Goal PHQ-9. Due on du e Goal Tobacco screenin g. Due on due Goal AST (SGOT). Due on due Goal Review Allergy L ist. Due on due Goal COKE WORKER Paperwork. Due on due Goal Update Social [...] ue Goal Creatinine. Due on due Goal PHQ-9. Due on du e Goal Creatinine. Due on due Goal SPECIAL DELIVERY MESSENGER Scanned. Due on due Goal UDT. Due on due Goal Tobacco screenin g. Due on due Goal FIT. Due on due Goal HPV. Due on due Goal Review Allergy L ist. Due on due Goal OARS. Due on due Goal Height. Due on d ue Goal ALT (SGPT). Due on due Goal COKE WORKER Paperwork. Due on due Goal AST (SGOT). Due on due Goal Medication Recon ciliation. Due on due Goal Update Social Hi story. Due on due Goal CT-Colonography. Due on due Goal FIT-DNA. Due on due Goal Unhealthy drug u se screening. Due on due Goal Weight. Due on d ue Goal Zoster vaccine ( 1st). Due on due Goal Tobacco Use. Due on due Goal Hepatitis C scre ening. Due on due Goal Order Annual PT. Due on due Goal SPECIAL DELIVERY MESSENGER Scanned. Due on due Goal AST (SGOT). Due on due Goal COKE WORKER Paperwork. Due on due Goal CT-Colonography. Due on due Goal Review Allergy L ist. Due on due Goal PHQ-9. Due on du e Goal UDT. Due on due Goal OARS. Due on due Goal Hepatitis C scre ening. Due on due Goal Tobacco screenin g. Due on due Goal FIT-DNA. Due on due Goal Unhealthy [...] Hi story. Due on due Goal Tobacco screenin g. Due on due Goal ALT (SGPT). Due on due Goal SPECIAL DELIVERY MESSENGER Scanned. Due on due Goal Height. Due on d ue Goal OARS. Due on due Goal Hepatitis C scre ening. Due on due Goal Weight. Due on d ue Goal COKE WORKER Paperwork. Due on due Goal Order Annual PT. Due on due Goal HPV. Due on due Goal Review Allergy L ist. Due on due Goal Creatinine. Due on due Goal Unhealthy drug u se screening. Due on due Goal Zoster vaccine ( ). Due on due Goal Review Allergy L ist. Due on due Goal Medication Recon ciliation. Due on due Goal FIT. Due on due Goal COKE WORKER Paperwork. Due on due Goal PHQ-9. Due on du e Goal SPECIAL DELIVERY MESSENGER Scanned. Due on due Goal Creatinine. Due on due Goal AST (SGOT). Due [...] C scre ening. Due on due Goal HPV. Due on due Goal FIT-DNA. Due on due Goal SPECIAL DELIVERY MESSENGER Scanned. Due on due Goal Hepatitis C [...] Social Hi story. Due on due Goal COKE WORKER Paperwork. Due on due Goal Review Allergy L ist. Due on due Goal CT-Colonography. Due on due Goal ALT (SGPT). Due on due Goal Tobacco Use. Due on due Goal Weight. Due on d ue Goal Zoster vaccine ( 1st). Due on due Goal Update Social Hi story. Due on due Goal SPECIAL DELIVERY MESSENGER Scanned. Due on due Goal Lipid panel. [...] ue Goal CT-Colonography. Due on due Goal Review Allergy L ist. Due on due Goal Height. Due on d ue Goal COKE WORKER Paperwork. Due on due Goal UDT. Due on due Goal Tobacco Use. Due on due Goal OARS. Due on due Goal Height. Due on d ue Goal Update Social Hi story. Due on due Goal COKE WORKER Paperwork. Due on due Goal FIT. Due on due Goal HPV. Due on due Goal Hepatitis C scre ening. Due on due Goal SPECIAL DELIVERY MESSENGER Scanned. Due on due Goal Review Allergy [...] Goal AST (SGOT). Due on due Goal Lifestyle educat ion regarding diet completed Goal COKE WORKER Paperwork. Due on due Goal FIT-DNA. Due [...] Goal Weight. Due on d ue Goal SPECIAL DELIVERY MESSENGER Scanned. Due on due Goal ALT (SGPT). [...] Order Annual PT. Due on due Goal SPECIAL DELIVERY MESSENGER Scanned. Due on due Goal Medication Recon ciliation. Due on due Goal Height. Due on d ue Goal PHQ-9. Due on du e Goal COKE WORKER Paperwork. Due on due Goal Creatinine. Due on due Goal Lipid panel. Due on due Goal FIT-DNA. Due on due Goal AST (SGOT). Due on due Goal OARS. Due on due Goal ALT (SGPT). Due on due Goal PHQ-9. Due on du e Goal FIT-DNA. Due on due Goal SPECIAL DELIVERY MESSENGER Scanned. Due on due Goal CT-Colonography. Due on due Goal Medication Recon ciliation. Due on due Goal Height. Due on d ue Goal Weight. Due on d ue Goal Lipid panel. Due on due Goal OARS. Due on due Goal AST (SGOT). Due on due Goal UDT. Due on due Goal Order Annual PT. Due on due Goal COKE WORKER Paperwork. Due on due Goal Review Allergy L [...] Goal AST (SGOT). Due on due Goal COKE WORKER Paperwork. Due on due Goal OARS. Due [...] Goal Weight. Due on d ue Goal SPECIAL DELIVERY MESSENGER Scanned. Due on due Goal Height. Due on d ue Goal HPV. Due on due Goal FIT-DNA. Due on due Goal AST (SGOT). Due on due Goal Zoster vaccine ( ). Due on due Goal Update Social Hi story. Due on due Goal Lipid panel. Due on due Goal Medication Recon ciliation. Due on due Goal CT-Colonography. Due on due Goal COKE WORKER Paperwork. Due on due Goal ALT (SGPT). Due on due Goal Order Annual PT. Due on due Goal FIT-DNA. Due on due Goal Weight. Due on d ue Goal PHQ-9. Due on du e Goal SPECIAL DELIVERY MESSENGER Scanned. Due on due Goal Creatinine. Due [...] Goal Lipid panel. Due on due Goal ALT (SGPT). Due on due Goal SPECIAL DELIVERY MESSENGER Scanned. Due on due Goal Tobacco Use. Due on due Goal PHQ-9. Due on du e Goal HPV. Due on due Goal AST (SGOT). Due on due Goal Creatinine. Due on due Goal Weight. Due on d ue Goal COKE WORKER Paperwork. Due on due Goal Order Annual PT. Due on due Goal Zoster vaccine ( 1st). Due on due Goal Unhealthy drug u se screening. Due on due Goal COKE WORKER Paperwork. Due on due Goal CT-Colonography. Due [...] Goal AST (SGOT). Due on due Goal SPECIAL DELIVERY MESSENGER Scanned. Due on due Goal OARS. Due on due Goal Lipid panel. Due on due Goal Height. Due on d ue Goal Tobacco Use. Due on due Goal UDT. Due on due Goal Review Allergy L ist. Due on due Goal ALT (SGPT). Due on due Goal SPECIAL DELIVERY MESSENGER Scanned. Due on due Goal COKE WORKER Paperwork. Due on due Goal PHQ-9. Due [...] due Goal CT-Colonography. Due on due Goal SPECIAL DELIVERY MESSENGER Scanned. Due on due Goal Tobacco Use. Due on due Goal COKE WORKER Paperwork. Due on due Goal Update Social Hi story. Due on due Goal Medication Recon ciliation. Due on due Goal Height. Due on d ue Goal AST (SGOT). Due on due Goal PHQ-9. Due on du e Goal Order Annual PT. Due on due Goal OARS. Due on due Goal FIT. Due on due Goal HPV. Due on due Goal Hepatitis C scre ening. Due on due Goal Zoster vaccine ( 1st). Due on due Goal ALT (SGPT). Due on due Goal FIT-DNA. Due on due Goal Lipid panel. Due on due Goal UDT. Due on due Goal Review Allergy L ist. Due on due Goal Creatinine. Due on due Goal Weight. Due on d ue Goal Medication Recon ciliation. Due on due Goal ALT (SGPT). Due on due Goal PHQ-9. Due on du e Goal FIT. Due on due Goal Unhealthy drug u se screening. Due on due Goal OARS. Due on due Goal Zoster vaccine ( ). Due on due Goal Tobacco Use. Due on due Goal Hepatitis C scre ening. Due on due Goal COKE WORKER Paperwork. Due on due Goal Update Social Hi story. Due on due Goal Height. Due on d ue Goal Review Allergy L ist. Due on due Goal Creatinine. Due on due Goal SPECIAL DELIVERY MESSENGER Scanned. Due on due Goal UDT. Due on due Goal Weight. Due on d ue Goal FIT-DNA. Due on due Goal Order Annual PT. Due on due Goal CT-Colonography. Due on due Goal AST (SGOT). Due on due Goal Lipid panel. Due on due Goal HPV. Due on due Goal Lifestyle educat ion regarding diet completed Goal Medication Recon ciliation. Due on due Goal FIT-DNA. Due on due Goal ALT (SGPT). Due on due Goal Lipid panel. Due on due Goal HPV. Due on due Goal Tobacco Use. Due on due Goal AST (SGOT). Due on due Goal COKE WORKER Paperwork. Due on due Goal SPECIAL DELIVERY MESSENGER Scanned. Due on due Goal Order Annual PT. Due on due Goal UDT. Due on due Goal PHQ-9. Due on du e Goal Review Allergy L ist. Due on due Goal OARS. Due on due Goal Hepatitis C scre ening. Due on due Goal Weight. Due on d ue Goal Creatinine. Due on due Goal Update Social Hi story. Due on due Goal Unhealthy drug u se screening. Due on due Goal CT-Colonography. Due on due Goal FIT. Due on due Goal Zoster vaccine ( ). Due on due Goal Height. Due on d ue Goal Update Social Hi story. Due on due Goal Review Allergy L ist. Due on due Goal PHQ-9. Due on du e Goal FIT-DNA. Due on due Goal Height. Due on d ue Goal OARS. Due on due Goal Medication Recon ciliation. Due on due Goal Zoster vaccine ( ). Due on due Goal CT-Colonography. Due on due Goal Order Annual PT. Due on due Goal Weight. Due on d ue Goal Lipid panel. Due on due Goal HPV. Due on due Goal UDT. Due on due Goal Tobacco Use. Due on due Goal ALT (SGPT). Due on due Goal Hepatitis C scre ening. Due on due Goal COKE WORKER Paperwork. Due on due Goal Unhealthy drug u se screening. Due on due Goal SPECIAL DELIVERY MESSENGER Scanned. Due on due Goal Creatinine. Due on due Goal AST (SGOT). Due on due Goal FIT. Due on due Goal Unhealthy drug u se screening. Due on due Goal CT-Colonography. Due on due Goal Tobacco Use. Due on due Goal Hepatitis C scre ening. Due on due Goal Height. Due on d ue Goal COKE WORKER Paperwork. Due on due Goal Update Social Hi story. Due on due Goal HPV. Due on due Goal Zoster vaccine ( 1st). Due on due Goal Weight. Due on d ue Goal OARS. Due on due Goal FIT. Due on due Goal Creatinine. Due on due Goal UDT. Due on due Goal Lipid panel. Due on due Goal SPECIAL DELIVERY MESSENGER Scanned. Due on due Goal Medication Recon ciliation. Due on due Goal AST (SGOT). Due on due Goal PHQ-9. Due on du e Goal FIT-DNA. Due on due Goal ALT (SGPT). Due on due Goal Review Allergy L ist. Due on due Goal Order Annual PT. Due on due Goal Lifestyle educat ion [...] due Goal FIT. Due on due Goal SPECIAL DELIVERY MESSENGER Scanned. Due on due Goal Order Annual PT. Due on due Goal Creatinine. Due on due Goal ALT (SGPT). Due on due Goal COKE WORKER Paperwork. Due on due Goal Lipid panel. Due on due Goal Height. Due on d ue Goal Zoster vaccine ( 1st). Due on due Goal Weight. Due on d ue Goal COKE WORKER Paperwork. Due on due Goal SPECIAL DELIVERY MESSENGER Scanned. Due on due Goal Hepatitis C [...] Goal Tobacco Use. Due on due Goal OARS. Due on due Goal Creatinine. Due on due Goal ALT (SGPT). Due on due Goal Review Allergy L ist. Due on due Goal SPECIAL DELIVERY MESSENGER Scanned. Due on due Goal FIT-DNA. Due on due Goal Tobacco Use. Due [...] Goal Lipid panel. Due on due Goal COKE WORKER Paperwork. Due on due Goal UDT. Due [...] due Goal HPV. Due on due Goal Order Annual PT. Due on due Goal Hepatitis C scre ening. Due on due Goal Medication Recon ciliation. Due on due Goal COKE WORKER Paperwork. Due on due Goal Creatinine. Due on due Goal Lipid panel. Due on due Goal SPECIAL DELIVERY MESSENGER Scanned. Due on due Goal Zoster vaccine ( 1st). Due on due Goal Tobacco Use. Due on due Goal Weight. Due on d ue Goal ALT (SGPT). Due on due Goal FIT-DNA. Due on due Goal Order Annual PT. Due on due Goal UDT. Due on due Goal Hepatitis C scre ening. Due on due Goal FIT. Due on due Goal AST (SGOT). Due on due Goal Tobacco Use. Due on due Goal Medication Recon ciliation. Due on due Goal ALT (SGPT). Due on due Goal Lipid panel. Due on due Goal COKE WORKER Paperwork. Due on due Goal Height. Due on d ue Goal Review Allergy L ist. Due on due Goal Zoster vaccine ( ). Due on due Goal Update Social Hi story. Due on due Goal HPV. Due on due Goal Creatinine. Due on due Goal Weight. Due on d ue Goal FIT-DNA. Due on due Goal SPECIAL DELIVERY MESSENGER Scanned. Due on due Goal PHQ-9. Due on [...] Goal PHQ-9. Due on du e Goal COKE WORKER Paperwork. Due on due Goal Height. Due on d ue Goal Creatinine. Due on due Goal ALT (SGPT). Due on due Goal Order Annual PT. Due on due Goal UDT. Due on due Goal HPV. Due on due Goal CT-Colonography. Due on due Goal SPECIAL DELIVERY MESSENGER Scanned. Due on due Goal Tobacco Use. Due on due Goal FIT-DNA. Due on due Goal Hepatitis C scre ening. Due on due Goal Lipid panel. Due on due Goal CT-Colonography. Due on due Goal FIT. Due on due Goal HPV. Due on due Goal OARS. Due on due Goal Order Annual PT. Due on due Goal Zoster vaccine ( 1st). Due on due Goal Creatinine. Due on due Goal Update Social Hi story. Due on due Goal Tobacco Use. Due on due Goal COKE WORKER Paperwork. Due on due Goal AST (SGOT). Due on due Goal Weight. Due on d ue Goal FIT-DNA. Due on due Goal Review Allergy L ist. Due on due Goal Unhealthy drug u se screening. Due on due Goal Lipid panel. Due on due Goal PHQ-9. Due on du e Goal ALT (SGPT). Due on due Goal Height. Due on d ue Goal SPECIAL DELIVERY MESSENGER Scanned. Due on due Goal Hepatitis C scre ening. Due on due Goal UDT. Due on due Goal Medication Recon ciliation. Due on due Goal Zoster vaccine ( 1st). Due on due Goal COKE WORKER Paperwork. Due on due Goal Height. Due [...] Goal AST (SGOT). Due on due Goal SPECIAL DELIVERY MESSENGER Scanned. Due on due Goal Lipid panel. Due on due Goal Update Social [employer] story. Due on due Goal Unhealthy drug u se screening. Due on due Goal UDT. Due on due Goal Hepatitis C scre ening. Due on due Goal FIT-DNA. Due on due Goal Zoster vaccine ( 1st). Due on due Goal OARS. Due on due Goal Order Annual PT. Due on due Goal SPECIAL DELIVERY MESSENGER Scanned. Due on due Goal Tobacco Use. Due on due Goal AST (SGOT). Due on due Goal Weight. Due on d ue Goal PHQ-9. Due on du e Goal ALT (SGPT). Due on due Goal CT-Colonography. Due on due Goal HPV. Due on due Goal COKE WORKER Paperwork. Due on due Goal Lipid panel. Due on due Goal Creatinine. Due on due Goal Height. Due on d ue Goal FIT. Due on due Goal Medication Recon ciliation. Due on due Goal Review Allergy L ist. Due on due Goal Review Allergy L ist. Due on due Goal Lipid panel. Due on due Goal SPECIAL DELIVERY MESSENGER Scanned. Due on due Goal COKE WORKER Paperwork. Due on due Goal Order Annual [...] e Goal OARS. Due on due Goal CT-Colonography. Due on due Goal HPV. Due on due Goal Unhealthy drug u se screening. Due on due Goal Tobacco Use. Due on due Goal COKE WORKER Paperwork. Due on due Goal PHQ-9. Due on du e Goal SPECIAL DELIVERY MESSENGER Scanned. Due on due Goal Creatinine. Due [...] Goal Tobacco Use. Due on due Goal COKE WORKER Paperwork. Due on due Goal Order Annual PT. Due on due Goal AST (SGOT). Due on due Goal ALT (SGPT). Due on due Goal SPECIAL DELIVERY MESSENGER Scanned. Due on due Goal Medication Recon ciliation. Due on due Goal Review Allergy L ist. Due on due Goal Update Social Hi story. Due on due Goal ALT (SGPT). Due on due Goal AST (SGOT). Due on due Goal Height. Due on d ue Goal Creatinine. Due on due Goal Order Annual PT. Due on due Goal OARS. Due on due Goal Weight. Due on d ue Goal SPECIAL DELIVERY MESSENGER Scanned. Due on due Goal Medication Recon ciliation. Due on due Goal Review Allergy L ist. Due on due Goal COKE WORKER Paperwork. Due on due Goal Update Social Hi story. Due on due Goal Tobacco Use. Due on due Goal PHQ-9. Due on du e Goal UDT. Due on due Goal Height. [...] Order Annual PT. Due on due Goal SPECIAL DELIVERY MESSENGER Scanned. Due on due Goal COKE WORKER Paperwork. Due on due Goal Creatinine. Due on due Goal ALT (SGPT). Due on due Goal PHQ-9. Due on du e Goal Weight. Due on d ue Goal ALT (SGPT). Due on due Goal Update Social Hi story. Due on due Goal Creatinine. Due on due Goal Tobacco Use. Due on due Goal COKE WORKER Paperwork. Due on due Goal AST (SGOT). Due on due Goal OARS. Due on due Goal Review Allergy L ist. Due on due Goal Order Annual PT. Due on due Goal Medication Recon ciliation. Due on due Goal PHQ-9. Due on du e Goal SPECIAL DELIVERY MESSENGER Scanned. Due on due Goal UDT. Due on due Goal Height. Due on d ue Goal ALT (SGPT). Due on due Goal Tobacco Use. Due on due Goal Weight. Due on d ue Goal SPECIAL DELIVERY MESSENGER Scanned. Due on due Goal Update Social Hi story. Due on due Goal OARS. Due on due Goal Review Allergy L ist. Due on due Goal PHQ-9. Due on du e Goal Medication Recon ciliation. Due on due Goal Order Annual PT. Due on due Goal Height. Due on d ue Goal Creatinine. Due on due Goal UDT. Due on due Goal COKE WORKER Paperwork. Due on due Goal AST (SGOT). Due on due Goal UDT. Due on due Goal Medication Recon ciliation. Due on due Goal Weight. Due on d ue Goal Review Allergy L ist. Due on due Goal Height. Due on d ue Goal Order Annual PT. Due on due Goal COKE WORKER Paperwork. Due on due Goal SPECIAL DELIVERY MESSENGER Scanned. Due on due Goal Tobacco Use. Due on due Goal AST (SGOT). Due on due Goal PHQ-9. Due on du e Goal ALT (SGPT). Due on due Goal Update Social Hi story. Due on due Goal Creatinine. Due on due Goal OARS. Due on due Appointment Tita Ruelas [facility] Patient [place] OKED Appointment Tita Ruelas BOOKED Appointment Tita Ruelas BOOKED Future Order: Radiology Order MR Lumbar WO ([id number]), Sent on: Sent Future Order: Lab Order Drug Yohana t Def 22+ Classes (G0483), Ordered on: Ordered History Of Present Illness Encounter Date Complaint History Of Prese nt Illness Widespread pain Severity level i s 5. [...] low-mid back pain stable. Has not seen [facility] yet, d/t ongoing financial issues. Will [...] pain meds/drugs and standing. Comments: Tita presents for follow up and medication refill in the setting of chronic low back pain with radiation into the R buttock and intermittently down the R leg but none noted recently. Denies any new health concerns today.Ongoing intermittent low-mid back pain. Has not seen [facility] yet, d/t ongoing financial issues. Will schedule with them once she pays her other pending bills. Not interested in IT pump at this time. Reports 90% relief from the medication, allowing for increased daily functioning. Denies side effects from current medication regimen. No other concerns. Comments: Tita presents virtually for follow up and medication refill in the setting of chronic low back pain with radiation into the R buttock and intermittently down the R leg but none noted recently. Denies any new health concerns today.Ongoing intermittent low-mid back pain. Has not seen [facility] yet, d/t ongoing financial issues. Will [...] is lower back. Comments: Tita presents virtually for follow up and medication refill in the setting of chronic low back pain with radiation into the R buttock and intermittently down the R leg. Denies any new health concerns today.Ongoing intermittent low-mid back pain. Has not seen [facility] yet, d/t ongoing financial issues. Will schedule with them once she pays her other pending bills. Continues daily exercising on home treadmill. Reports 80% relief from the medication, allowing for increased daily functioning. Denies side effects from current medication regimen. No other concerns. low back pain Severity level i s 5. Duration: chronic. The problem is stable. Comments: Tita presents in clinic for follow up. - Reports she missed recent appointment as she was sick. - Has not seen [facility] yet, notes she has to pay [...] - Presents with a small surplus of Barnard. Reports the medication is helpful, denies SEs. No other concerns expressed. low back pain Severity level i s 6. Duration: chronic. The problem is stable. The patient describes the pain as an ache. Symptoms are aggravated by sitting and bending backwards. Symptoms are relieved by exercise, pain meds/drugs, bending forward, reaching, standing and walking. Comments: Tita presents virtually via [place] for follow up and medication refill in [...] allows for increased functionality. Continues to utilize Barnard 10-325mg TID with significant relief. Denies OIC or other side effects from current medication regimen. No other concerns today. low back pain Severity level i s 5. Duration: chronic. The problem is stable. Comments: Tita is a 59 y/o female who presents virtually via [place] for follow up and medication refill in the setting of chronic low back pain with radiation into the R buttock and intermittently down the R leg. Continues with regular stretching with benefit.Reports current medication regimen provides 70% pain relief and allows for increased functionality. Continues to utilize Barnard 10-325mg TID with significant relief. Denies OIC or other side effects from current medication regimen. No other concerns today. low back pain Severity level i s 4. Duration: chronic. The problem is stable. Location of pain is lower back. Pain is radiated to the LLE. Symptoms are aggravated by sitting and standing. Symptoms are relieved by pain meds/drugs and stretching. low back pain Severity level i s 8. Duration: chronic. The problem is stable. Pain is radiated to the right buttock. The client describes the pain as an ache, burning and tingling. Symptoms are aggravated by sitting, bending backward and social activities. Symptoms are relieved by walking, bending forward, standing and reaching overhead. Comments: Tita is a 58 y/o female who presents in clinic for follow up and medication refill in the setting of chronic low back pain with radiation into the R buttock and intermittently down the R leg. Continues with regular stretching with benefit.Reports current medication regimen provides 70-80% pain relief and allows for increased functionality. Continues to utilize Barnard 10-325mg TID with significant relief. Denies OIC or other side effects from current medication regimen. No other concerns today. low back pain Severity level i s 6. Duration: chronic. Symptoms are relieved by pain meds/drugs. Comments: Tita is a 58 y/o female who presents via [place] for follow up and medication refill in [...] allows for increased functionality. Continues to utilize Barnard 10-325mg TID with significant relief. Denies OIC or other side effects from current medication regimen. No other concerns today. low back pain Severity level i s 7. Duration: chronic. The problem is stable. Comments: Tita is a 58 y/o female who presents via [place] for follow up and medication refill in [...] allows for increased functionality. Continues to utilize Barnard 10-325mg TID with significant short-term relief, but [...] allows for increased functionality. Continues to utilize Barnard 10-325mg TID with significant benefit but believes she would obtain longer pain coverage if she was taking it 4x/day rather than 3x/day. Inquires if she could increase the Barnard. Denies OIC or other side effects from [...] allows for increased functionality. Continues to utilize Barnard 10-325mg TID with significant benefit. Denies OIC or other side effects from current medication regimen. No other concerns today. Back Pain Severity level i s 4. Duration: chronic. The problem is stable. Location of pain is lower back. Comments: Tita presents virtually for medication management in the setting of chronic low back pain. Has been overall stable. She has been camping this week so she is more active which aggravates her back.She notes that she has been out walking more often following her recent TFESI on 11/07/23. Continues to report significant relief.She is agreeable to complete her annual PT with [facility]. She has gradually lost weight over the past 3 months which is noticeable on her joints. Reports current medication regimen provides 80% pain relief, allowing for increased functionality. Denies side effects from current medication regimen. No other concerns today. tania Montoya is a 58 saurabh old [...] ice, lying down, massage and rest. Comments: Ttia presents in clinic for a follow-up and [...] agreeable to complete her annual PT with [facility].Reports current medication regimen provides 80% pain relief, allowing for increased functionality. Denies side effects from current medication regimen. No other concerns today. Comments: Tita presents via [place] for a [...] persistently. Location of pain is lower back. Back Pain Severity level i s 7. [...] in using oxycodone. No other concerns today. back pain Severity [...] allows for increased functionality. Continues to utilize Barnard 10-325mg with moderate benefit. Agreeable for a supplemental script while pursuing her repeat injection. Denies OIC or other side effects from current medication regimen. No other concerns today. Comments: Tita is a 57 y/o female who presents virtually via [place] for a follow up and medication refill in the setting of chronic low back pain with radiation into the R buttock and R thigh. Pain has been stable this month. Shares that she has been staying active and going on walks.Reports current medication regimen provides 75% pain relief and allows for increased functionality. Continues to utilize Barnard 10-325mg with significant benefit. Denies OIC or [...] allows for increased functionality. Continues to utilize Barnard 10-325mg with significant benefit. Presents out of [...] a 57 y/o female who presents via [place] for virtual follow up and medication refill [...] allows for increased functionality. Continues to utilize Barnard 10-325mg with significant benefit. Denies OIC or other side effects from current medication regimen. No other concerns today. Back Pain Severity level i s 4. Duration: chronic. The problem is stable. It occurs persistently. Symptoms are relieved by pain meds/drugs. Comments: Tita is a 57 y/o female who presents via [place] for virtual follow up and medication refill [...] allows for increased functionality. Continues to utilize Barnard 10-325mg with significant benefit. Denies OIC or other side effects from current medication regimen. No other concerns today. back pain Severity level i s 8. [...] allows for increased functionality. Continues to utilize Barnard 10-325mg with significant benefit. Denies OIC or [...] allows for increased functionality. Continues to utilize Barnard 10-325mg with significant benefit. Denies OIC or [...] allows for increased functionality. Continues to utilize Barnard 10-325mg with significant benefit. Denies OIC or [...] and 2/10 with medications. Continues to utilize Barnard 10-325mg with significant benefit. Denies OIC or [...] for increased functionality. Patient has restarted her Barnard 10/325 TID since [place], and is now [...] down, pain meds/drugs and rest. Back Pain Severity level i s 5. Duration: chronic. The problem is stable. It occurs persistently. Location of pain is lower back.The patient describes the pain as an ache, burning and sharp. Symptoms are aggravated by ascending stairs, bending, lifting and standing. Symptoms are relieved by heat, ice, lying down and pain meds/drugs. Back Pain (comments) Patient is here for [...] down, pain meds/drugs and rest. Back Pain Severity level i s 2. [...] meds/drugs, sitting and changing positions. Back Pain (comments) Tita [...] are relieved by pain meds/drugs. Back Pain Severity level i s 3. [...] meds/drugs and rest. Back Pain (comments) Tita prese nts for [...] R hip. Reports that the increase in Barnard has helped significantly and improves her ability [...] She is happy with relief offered with Barnard, however continues to experience elevated pain at [...] requests hydrocodone rx refill today. Pt reviewed [employer] [facility] and completed OARS which was low riskNo [...] Jones. Reports competing MRI and X-ray at [facility] about 6 months ago.Treatment Tried:PHUONG at [facility] - helpful in the past, last few not relief.Currently taking Barnard to manage pain - helpful.ice and hot [...] months)* Last completed Lumbar on 05/20/24 assessment nursing home (current) use of opiat e analgesic impression [...] Mental Status Date Cognitive Assessment Orientation - Del Rey ed to time, place, person, situation. Patient Care Teams Name Effective Dates (start - stop) Status Members No Information
--- OUTSIDE RECORDS SUMMARY | 2025-04-28 08:53 | XMS_ITS | Clinical Summary ---
Author Organization [facility] Address [address] [place] [address] Care Team Providers Care Facility Designer Name Role Phone Heather Benitez Primary Primary Care Provider Unavailabl e Allergies Active Allergy Reactions Criticality Noted Date Comments Vancomycin Hives,Itching,Other - Describe In Comment Field 05/21/2008 swelling Medications CPAP APAP, heated humidifier, mask, headgear, filters and tubing. For home use. Pressure: 5-20 Length of Need: 99 1 unit 0 4 Active etodolac (LODINE) 400 mg tabletIndications :Neck pain Take 1 tablet by mouth 3 times daily with meals. 30 tablet 0 5 Active cyclobenzaprine (FLEXERIL) 10 mg tabletIndications :Neck pain Take 1 tablet by mouth at bedtime if needed for Muscle Spasm. 20 tablet 0 5 Active amLODIPine (NORVASC) 5 mg tabletIndications :Hypertension TAKE 1 TABLET BY MOUTH EVERY DAY 90 tablet 0 6 Active FLUoxetine (PROZAC) 20 mg capsuleIndication s:Depression TAKE 3 CAPSULES BY MOUTH EVERY MORNING 90 capsule 5 6 Active albuterol HFA (PRO-AIR,VENTOLIN ,PROVENTIL) 90 mcg/actuation inhalerIndication s:Cough Inhale 1-2 Puffs by mouth 4 times daily if needed. 1 Inhaler prn 6 Active zolpidem (AMBIEN) 10 mg tabletIndications :Insomnia, unspecified type TAKE 1 TABLET BY MOUTH AT BEDTIME NEEDED SLEEP 30 tablet 5 6 Active traZODone (DESYREL) 100 mg tabletIndications :Insomnia, unspecified type TAKE 1 TO 2 TABLETS BY MOUTH EVERY NIGHT AT BEDTIME DIRECTED 180 tablet 1 6 Active buPROPion (WELLBUTRIN XL) 150 mg Extended-Release tabletIndications :Moderate episode of recurrent major depressive disorder (HC) TAKE 1 TABLET BY MOUTH EVERY MORNING 30 tablet 7 Active metoprolol succinate (TOPROL XL) 100 mg Sustained-Release tabletIndications :Hypertension TAKE 1 TABLET BY MOUTH EVERY DAY 30 tablet 7 Active oxyCODONE-acetami nophen, 5-325 mg, (PERCOCET) 5-325 mg per tabletIndications :Closed nondisplaced fracture of second metatarsal bone of right foot, initial encounter Take 1 tablet by mouth every 4 hours if needed for Pain 90 tablet 7 Active albuterol HFA (VENTOLIN HFA) 90 mcg/actuation inhaler Inhale 1-2 Puffs by mouth 4 times daily if needed. 1 Inhaler 12 8 Active Active Problems Problem Noted Date Diagnosed [...] unspecified 01/17/2009 Anxiety 01/17/2009 Health Maintainence 01/17/2009 Overview (01/17/2009): Lipids - 08/14/06 total 126; trig 57; LDL 65; HDL 50 PAP 08/14/06 - Hysterectomy 05/04 MAMMO -12/22/03 - Benign Resolved Problems Problem Noted Date Diagnosed Date Resolved Date Pain medication agreement 10/28/2012 Assessment & Plan (10/28/2012 4:43 PM CDT): Controlled substance agreement for percocet one tablet every 4 hours on file and signed 10/28/2012. 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 Not on file Not on file Not o n file Obstetrics History Last Filed Vital Signs Vital Sign Reading Time Taken Comments Blood Pressure 174/90 01/24/2017 9:06 AM CDT Pulse 74 01/24/2017 9:06 AM CDT Temperature 36.9 C (98.4 F) 09/26/2015 2:00 PM LOCK UP WORKER Respiratory Rate 16 07/15/2014 10:44 AM LOCK UP WORKER Oxygen Saturation 98% 09/26/2015 2:00 PM LOCK UP WORKER Inhaled Oxygen Concentration - - Weight 114.3 kg (252 lb) 09/26/2015 2:00 PM LOCK UP WORKER Height 165.6 cm (5' 5.2) 09/26/2015 2:00 PM LOCK UP WORKER Body Mass Index 41.68 09/26/2015 2:00 PM LOCK UP WORKER Plan of Treatment Health Maintenance Due Date Last Done Comments HIV for age 15-65 1982 Hepatitis C screening for age 18-79 1985 Hepatitis B series for 19+ ( 1 of 3 - 19+ 3-dose series) 1986 Colonoscopy through age 75 2012 Mammogram for age 45-75 2012 Depression screening for age 12+ 08/29/2016 08/29/19 16 BMI (ht and wt on same day) for age 18+ 09/25/2016 0 09/26/2015, 08/29/2015 Pneumococcal series for age 50+ (1 of 1 - PCV) 2017 Zoster (shingles) series for age 50+ (1 of 2) 2017 Lipids for age 45-75 04/20/2019 04/20/2014 Tetanus booster 11/30/2024 11/30/2014 COVID-19 vaccine series (1 - season) 2025 Influenza Vaccine (#1) 2025 04/25/2015 RSV vaccine for adults or pr egnancy (1 - 1-dose 75+ series) 2042 Procedures Procedure Name Priority Date/Time Associated Diagnosis Comments LIPID PANEL W REFLEX MEASURED LDL Routine 04/20/2014 8:31 AM CDT Health Maintainence from Last 3 Months or Most Recently Relevant to Health Maintenance Results * (ABNORMAL) LIPID PANEL W REFLEX MEASURED LDL (04/20/2014 8:31 AM CDT) CHOLESTEROL,TOTAL 176 100 - 199 mg/dL 04/20/2014 1:31 PM CDT [facility] TRIGLYCERIDES 80 <150 mg/dL 04/20/2014 1:31 PM CDT [facility] HDL CHOLESTEROL 39(L) >40 mg/dL 4 1:31 PM T [facility] NON-HDL CHOLESTEROL 137 <145 mg/dl 04/20/2014 1:31 PM T [facility] CHOL/HDL RATIO 4.51(H) <4.50 04/20/2014 1:31 PM CDT [facility] LDL CHOLESTEROL 121 <=130 mg/dL 04/20/2014 1:31 PM T [facility] PATIENT STATUS FASTING 04/20/2014 1:31 PM CDT [facility] Blood specimen (specimen) BLOOD SPECIMEN / Unknown Venipuncture / Unknown 04/20/2014 8:31 AM CDT 04/20/2014 8:31 AM CDT us Johnathan [facility] Final Resul t [facility] [address] [place] [address], [place] from Last 3 Months or Most Recently Relevant to Health Maintenance Insurance [id number] [place] [id number] [facility] Advance Directives * Full Code (Latest Code Status on File) Date Activated Date Inactivated Comments 05/22/2008 10:37 AM 05/24/2008 7:08 PM Care Teams Facility Designer Relationship Specialty Start Date End Date , No Primary . PCP - General 08/29/15
--- OUTSIDE RECORDS SUMMARY | 2025-04-28 08:53 | XMS_ITS | Encounter Summary ---
Author Organization [facility] Address [address] [place] [address] Care Team Providers Care Dental Assistant Teacher Name Role Phone Erlin Aquino MD Primary Care Provider [phone] Encounter Details Date Type Department Care Team (Late st Contact Info) Description 05/21/2024 Lab Requisition [address] [place] [id number] Lori Chua, ANNY, DNP [address] [facility] [address] [place], [place] [id number] Encounter for screening for malignant neoplasm of colon Social History Tobacco Use Types Packs/Day Years Used Date Smoking Tobacco: Former Cigarettes 0.5 10 Smokeless Tobacco: Never Alcohol Use Standard Drinks/Week Comments Never 0 (1 standard drink = 0.6 oz pur e alcohol) AUDIT-C Answer Date Recorded Frequency of Alcohol Consumption Never 11/21/2018 Average Number of Drinks Not on file 019 Frequency of Binge Drinking Not on file 10/27 Comments Unknown Sex and Gender Information Value Date Recorded Sex Assigned at Not on file Legal Sex Female 12:40 AM CDT Gender Identity Not on file Sexual Orientation Not on file documented as of this encounter Plan of Treatment Not on file documented as of this encounter Procedures Procedure Name Priority Date/Time Associated Diagnosis Comments [facility] FIT KIT Routine 05/21/2024 8:2 8 PM CDT Encounter for screening for malignant neoplasm of colon documented in this encounter Results * [facility] FIT KIT (05/21/2024 8:28 PM CDT) [facility] K[facility] RECEIVED No Kit received at [facility] 09/19/2024 8:00 PM [facility] Comment:This result was prev iously suppressed from the chart. [facility] FIT KIT SENT Yes 09/19/2024 8:00 PM RETAIL SALES ASSOCIATE [facility] Stool Non-blood Collection / Unknown 05/21/2024 8:28 PM CDT 05/21/2024 8:28 PM CDT us Lori Chua CENTRAL OFFICE OPERATOR SUPERVISOR, DNP LAB_1 Ritu l Result [facility] [address] documented in this encounter Visit Diagnoses Diagnosis Encounter for screening for malignant neoplasm of colon Special screening for malignant neoplasms, colon documented in this encounter Care Teams Dental Assistant Teacher Relationship Specialty Start Date End Date Erlin Aquino MD [facility] [address] [place] [address] PCP - General Family Practice 12/28/18 documented as of this encounter
--- OUTSIDE RECORDS SUMMARY | 2025-04-28 08:53 | XMS_ITS | Clinical Summary ---
Author Organization [facility] Address [address], [place] [address] Care Team Providers Care Plastic Injection Mold Maker Name Role Phone Erlin Aquino MD Primary Care Provider [phone] Source Comments You are receiving this document as you are listed as the primary care provider,follow-up provider, or the patient has been referred to you for consultation.This is in compliance with the Medicare and[facility] EHR Incentive Program,which states Providers who transition their patient to another setting of careor provider of care or refers their patient to another provider of care shouldprovide summary care record for each transition of care or referral. [facility] Allergies Active Allergy Reactions Criticality Noted Date Comments Vancomycin Edema,generalized 05/25/2018 Medications VENTOLIN HFA 108 (90 Base) MCG/ACT inhaler INL 1 TO 2 PFS PO QID PRN 11 8 Active oxyCODONE-acetami nophen (PERCOCET) 5-325 MG tablet TK 1 - 2 TS PO Q 4 - 6 H PRN. NM4 0 8 Active FLUoxetine (PROZAC) 40 MG capsule Take 40 mg by mouth daily. Active metoprolol succinate (TOPROL XL) 100 MG 24 hour release tabletIndications :Hypertension Take 100 mg by mouth daily. Indications: High Blood Pressure Disorder Active buPROPion (WELLBUTRIN XL) 150 MG 24 hour release tablet Take 150 mg by mouth daily. 9 Active traZODone (DESYREL) 150 MG tablet 9 Active omeprazole (PRILOSEC) 20 MG capsule Take 1 Capsule by mouth daily for 90 days. Take 1 hour before a meal. 90 Capsule 9 Active Pediatric Multivit-Minerals -C (CHEWABLES MULTIVITAMIN OR) Take 1 Dose by mouth daily. Active cholecalciferol (VITAMIND3) 2000 units tablet Take 2,000 Units by mouth daily. Active Cyanocobalamin (VITAMIN B-12) [address] 1,000 mcg under tongue once a week. Active CALCIUM CARBONATE OR Take 600 mg by mouth daily. 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 Overview (12/28/2018): PLEASE DO NOT SCHEDULE ELECTIVE SURGERY FOR 30 DAYS, UNTIL AFTER 01/27/2019 Morbid obesity with BMI of 50.0-59.9, adult 11/25 Overview (12/04/2018): Added automatically from request for surgery [id number] Obstructive sleep apnea 05/25/2018 Overview (11/03/2018): Setting: AutoPAP 5-20 cmH20 Supplied by: Rhiannon COLMENARES PSG done: [facility]HI RDI Lowest O2 Sat: Bariatric Hypertension 05/25/2018 Morbid obesity with BMI of 45.0-49.9, adult 04/28 Type 2 diabetes mellitus without complications 1 Joint pain 05/25/2018 Family History Medical History Relation Name Comments Cancer, Breast Maternal Aunt Cancer, Ovary Negative Family History Relation Name Status Comments Maternal Aunt Social History Tobacco Use Types Packs/Day Years [...] 55 02/10/2019 2:51 PM CDT Temperature 37 C (98.6 F) 12/30/2018 5:10 PM CDT Respiratory Rate 18 [...] Colon Cancer Screening Plan Due 1967 Diabetes: Albumin/Creatinine Ratio, Urine 1967 Diabetes: Eye Exam 1967 Diabetes: Foot Exam 1967 Hep C Screening (Preventive Services) 1967 HIV Screening (Preventive Services) 1983 Adult Preventive Visit 1985 HepB Vaccine (1) 1986 Zoster/Shingles Vaccine (1 of 2) 2017 Pneumococcal Vaccine 50+ Yrs (2 of 2 - PCV) 10/08/2018 10/08/2017 Diabetes: HGBA1C 11/29/2018 06/01/2018 Diabetes: Creatinine 06/01/2019 06/01/2018 Diabetes: Lipid Panel 06/01/2023 06/01/2018 DTaP/Tdap/Td Vaccine (2 - Tdap) 11/30/2024 11/30/2014 COVID-19 Vaccine (3 - season) 2025 12/06/2020, 11/08/2020 Influenza Vaccine (#1) 2025 , 05/10/2018, 04/25/2015, Additional history exists Mammogram 05/19/2025 05/19/2024 HepA Vaccine Aged Out No longer eligi ble based on patient's age to complete this topic Hib Vaccine Aged Out No longer eligi ble based on patient's age to complete this topic IPV (Polio) Vaccine Aged Out No longe r eligible based on patient's age to complete this topic MCV4 Vaccine Aged Out No longer eligi ble based on patient's age to complete this topic Meningococcal B Vaccine Aged Out No l onger eligible based on patient's age to complete this topic Procedures Procedure Name Priority Date/Time Associated Diagnosis Comments MM MAMMOGRAM SCREENING BILAT W CAD Routine 05/19/2024 1:53 PM CDT Visit for screening mammogram CREATININE / GFR Routine 06/01/2018 9:34 AM MACHINE ROOM OPERATOR Personal history of endocrine disorder LIPID PANEL & DIRECT LDL (IF NEEDED) Routine 06/01/2018 9:34 AM MACHINE ROOM OPERATOR Personal history of endocrine disorder HGB A1C Routine 06/01/2018 9:34 AM MACHINE ROOM OPERATOR Personal history of endocrine disorder from Last 3 Months or Most Recently Relevant to Health Maintenance Results * MM Mammogram Screening Bilat W CAD (05/19/2024 1:53 PM CDT) Anatomical Region Laterality Modality Breast Bilateral Mammography Impressions 05/26/2024 2:48 PM CDT : ACR BI-RADS Category 1: Negative RECOMMENDATION: Follow Up Imaging in 12 months - Bilateral The results and recommendations of this examination will be communicated to the patient. Narrative 05/26/2024 2:48 PM CDT MM MAMMOGRAM SCREENING BILAT W CAD performed on 05/19/24 FDA Accredited Facility: [place] [address] Compared to: 03/30/2020 Foreign Image(S) Mammogram and 11/06/2017 Foreign Image(S) Mammogram FINDINGS: Bilateral screening mammogram was performed with the assistance of Computer-Aided Detection . There are scattered areas of fibroglandular density. There is no radiographic evidence of malignancy. us Erlin Aquino MD RAD ROBLES Final Result * Lipid Panel and Direct LDL(If Needed) (06/01/2018 9:34 AM MACHINE ROOM OPERATOR) Cholesterol 167 0 - 199 mg/dL PN SOFT Triglycerides 76 4 - 149 mg/dL PN SOFT HDL Cholesterol 49 >39 mg/dL PN SOFT Cholesterol/HDL Ratio Screen 3.4 PN SOFT LDL Calculated 103 19 - 130 mg/dL PN SOFT Non HDL Chol, Calc 118 0 - 159 mg/dL PN SOFT Hours Fasting 12.0 PN SOFT 06/01/2018 9:34 AM MACHINE ROOM OPERATOR 06/01/2018 9:34 AM MACHINE ROOM OPERATOR Narrative PN SOFT - 06/01/2018 12:38 PM MACHINE ROOM OPERATOR Performed at [facility], [address] [place] [address] CLIA number [id number] us Linda Dia PA-C LAB_1 Final Result Performing Organization Address [facility] de Phone Number PN SOFT [address] [place] [address] * Creatinine / GFR (06/01/2018 9:34 AM MACHINE ROOM OPERATOR) Creatinine Serum 0.70 0.55 - 1.02 mg/dL PN SOFT Est GFR Am >60 >60 mL/min/1.7 3m2 PN SOFT Est GFR Non-Afr Am >60 >60 mL/min/1.7 3m2 PN SOFT Comment: Normal>60, moderate decrease 30 - 59, severe decrease 15 - 29, renal failure <15 mL/min/1.73 m2 NOTE: Choose the eGFR result above appropriate for the race of the patient. 06/01/2018 9:34 AM MACHINE ROOM OPERATOR 06/01/2018 9:34 AM MACHINE ROOM OPERATOR Narrative PN SOFT - 06/01/2018 12:38 PM MACHINE ROOM OPERATOR Performed at [facility], [address] [place] [id number] CLIA number [id number] us Linda Dia PA-C LAB_1 Final Result Performing Organization Address [facility] de Phone Number PN SOFT [address] [place] [address] * (ABNORMAL) Hgb A1c (06/01/2018 9:34 AM MACHINE ROOM OPERATOR) HGB A1C 6.4(H) 4.0 - 5.6 % PN SOFT 06/01/2018 9:34 AM MACHINE ROOM OPERATOR 06/01/2018 12:02 PM MACHINE ROOM OPERATOR Narrative BRANDON PONCE - 06/01/2018 3:05 PM MACHINE ROOM OPERATOR Performed at [facility], [address] [place] [address] CLIA number [id number] Linda Dia PA-C LAB_1 Final Result BRANDON PONCE [address] [place] [address] from Last 3 Months or Most Recently Relevant to Health Maintenance Insurance [address] [place] [id number] [employer] [address] [place] [id number] Advance Directives * Full Code (Latest Code Status on File) Date Activated Date Inactivated Comments 12/28/2018 8:30 PM 12/30/2018 7:59 PM Care Teams Plastic Injection Mold Maker Relationship Specialty Start Date End Date Erlin Aquino MD [facility] [address] [place] [address] PCP - General Family Practice 12/28/18
[2025-04-28 09:01] VITALS: BP 147/97; PULSE 81; RESP 18; TEMP 36.8; O2SAT 98; BMI 21.6
--- NOTE | 2025-04-28 09:31 | CRLHL7_ITS ---
For Patients: As a result of the Century Cures Act, medical imaging exams and procedure reports are released immediately into your electronic medical record. You may view this report before your referring provider. If you have questions, please contact your health care provider. Indication: Right-sided neck pain, arm numbness Technique: Multiplanar, multisequence MR images of the cervical spine were obtained without administration of IV contrast. Comparison: CT cervical spine January 08, 2021 Findings: The cervical vertebral body heights are grossly maintained with minimal endplate Schmorl`s defects. There is mild positional versus spasmodic straightening of the normal cervical lordosis. No significant spondylolisthesis. There is grossly preserved marrow signal intensity. The spinal cord is normal in signal and contour. The paraspinous soft tissues and cervical flow voids are unremarkable. C2-C3: There is a minimal diffuse disc bulge with small central protrusion. No significant spinal canal stenosis or neural foraminal narrowing. C3-C4: There is a diffuse disc bulge with a central disc protrusion. There is mild uncovertebral joint disease with mild left neural foraminal narrowing. Mild spinal canal stenosis. C4-C5: There is a diffuse disc bulge with a right sided disc protrusion with severe right uncovertebral joint disease. There is [id number]-[id number]-[id number] spinal canal narrowing with moderate to severe right neural foraminal narrowing. C5-C6: Moderate posterior disc osteophyte complex with severe uncovertebral joint disease changes. Severe bilateral neural foraminal narrowing right greater than left with mild spinal canal stenosis. C6-C7: There is a diffuse disc bulge with a left foraminal disc protrusion. There is mild spinal canal narrowing with severe left neural foraminal narrowing. C7-T1: No significant spinal canal stenosis or neural foraminal narrowing. Impression: Multilevel degenerative changes of the cervical spine worst at the C4-C5 and C5-C6 levels as described above. Dictated by William Orr MD @ 04/28/2025 11:11:04 AM (Electronically Signed)
[2025-04-28] MEDS: CYCLOBENZAPRINE HCL 10 MG TABLET PO (10:06)
--- NOTE | 2025-04-28 10:37 | ED.NECK ---
HPI - Neck Pain/Injury General Date Seen: 04/28/25 Chief Complaint: Neck Injury/Pain Stated Complaint: Neck, R shoulder/arm pain Time Seen by Provider: 04/28/25 09:20 Source: patient Mode of arrival: ambulatory Limitations: no limitations History of Present Illness HPI Narrative: Patient is a 59-year-old female presenting to the emergency department for right-sided neck pain and numbness radiating down her right arm. She states the only injury she can think of is a couple weeks ago she fell onto her left side hitting her left ribcage against a shelf. Denies hitting her head or neck. Few days later she started to notice quite a bit of pain to her right neck that radiates down her right arm. The pain has not been getting any better so she decided to come to emergency department for evaluation. Is able to turn her head right and left but has decreased movement when turning her head to the right. States she has this pins and needles sensation throughout her right arm. Most of the pain seems to be around C7/T1. Pain is worse with movement. No previous neck injuries that she is aware of. Denies ever having symptoms like this before. Denies headache, lightheadedness, dizziness. Does feel like her right arm is feeling weaker than the left. Related Data Home Medications ?Medication ?Instructions ?Recorded ?Confirmed hydrocodone 10 mg-acetaminophen 1 tab PO .2-3 x daily PRN chronic 07/23/24 04/28/25 325 mg tablet pain Previous Rx's ?Medication ?Instructions ?Recorded blood sugar diagnostic (Accu-Chek #200 ea 11/24/23 Guide test strips) cyanocobalamin (vitamin B-12) 1,000 mcg IM Q4W 12 months #10 mL 07/23/24 1,000 mcg/mL injection solution fluoxetine 20 mg capsule 60 mg (3 x 20 mg) PO QDAY #270 caps 07/23/24 lisinopril 20 mg tablet 20 mg PO QDAY #90 tabs 07/23/24 trazodone 150 mg tablet 150 mg PO .HS PRN insomnia #90 tabs 07/23/24 albuterol sulfate 90 mcg/actuation 2 puff inhalation Q4H PRN 08/25/24 aerosol inhaler (Ventolin HFA) shortness of breath or wheezing #8.5 grams tirzepatide 15 mg/0.5 mL 15 mg (0.5 mL) subcut QWEEK #2 mL 01/07/25 subcutaneous pen injector (Obed) atorvastatin 40 mg tablet 40 mg PO QHS #90 tabs 03/04/25 alprazolam 1 mg tablet See Rx Instructions PO .ud #30 tabs 04/21/25 Allergies Allergy/AdvReac Type Severity Reaction Status Date / Time vancomycin Allergy Unknown Verified 04/28/25 09:06 Review of Systems Status of ROS: Reports: 10 or more systems reviewed and unremarkable except as noted in History and below [facility] Medical History History of smoking ?Z87.891 - Personal history of nicotine dependence (ICD-10) Concussion ?S06.0X9A - Concussion with loss of consciousness of unspecified duration, initial encounter (ICD-10) Surgical History History of hysterectomy with oophorectomy History of cholecystectomy ?Z90.49 - Acquired absence of other specified parts of digestive tract (ICD-10) History of appendectomy ?Z90.49 - Acquired absence of other specified parts of digestive tract (ICD-10) Family History Unknown Diabetes Social History Smoking Status: Former smoker What tobacco products do you use: cigarettes Smoking quit date/years: <= 15 years ago Do you use any of these nicotine containing products: None Second hand tobacco smoke exposure: No How often do you have a drink containing alcohol: monthly or less How many standard drinks containing alcohol do you have on a typical day: 1 or 2 How often do you have six or more drinks on one occasion: Never AUDIT-C Alcohol total score: 1 Non-prescribed substance use: denies use service: No Exam Narrative: Exam Narrative: Const: Well-nourished, Well-developed, in mild distress Eyes: PERRL, no conjunctival injection, and symmetrical lids HENT: Atraumatic external nose and ears. Moist mucous membranes. Neck: Symmetric, trachea midline, No thyromegaly. Tenderness noted to the right side of her neck along the paraspinal and midline. Also has pain around T1 more lateral. MSK:Extremities w/o deformity, Normal Active ROM Skin: Warm, Dry. No rashes or lesions. Neuro: Normal Muscle tone, decreased sensation right upper extremity compared to the left. Five of 5 strength of the shoulder and elbow but does have slightly decreased application development specialist strength on the right compared to the left. Psych: Awake, Alert, & Oriented x3. Appropriate mood and affect. Const: Vital Signs, click to edit/add: Vital Signs - 24 hr 04/28/25 09:01 Temperature 98.3 F Pulse Rate [Right Pulse Oximeter] 81 Respiratory Rate 18 Blood Pressure [Ri ght Upper Arm] 147/97 H Pulse Oximetry 98 Oxygen Delivery Me thod Room Air Course Vital Signs Vital signs: Initial Vital Signs Temperature 98.3 F 04/28/25 09:01 Temperature Source Temporal Artery Scan 04/28/25 09:01 Pulse Rate 81 04/28/25 09:01 Pulse Rhythm Regular 04/28/25 09:01 Pulse Strength 3+ Normal 04/28/25 09:01 Respiratory Rate 18 04/28/25 09:01 Blood Pressure 147/97 H 04/28/25 09:01 Blood Pressure Mean 113 H 04/28/25 09:01 Blood Pressure Position Sitting 04/28/25 09:01 Pulse Oximetry 98 04/28/25 09:01 Oxygen Delivery Method Room Air 04/28/25 09:01 Vital Signs Temperature 98.3 F 04/28/25 09:01 Pulse Rate 81 04/28/25 09:01 Respiratory Rate 18 04/28/25 09:01 Blood Pressure 147/97 H 04/28/25 09:01 Pulse Oximetry 98 04/28/25 09:01 Oxygen Delivery Method Room Air 04/28/25 09:01 Temperature 98.3 F 04/28/25 09:01 Pulse Rate 81 04/28/25 09:01 Respiratory Rate 18 04/28/25 09:01 Blood Pressure 147/97 H 04/28/25 09:01 Pulse Oximetry 98 04/28/25 09:01 Oxygen Delivery Method Room Air 04/28/25 09:01 Medications Administered Medications: Discontinued Medications Generic Name Dose Route Start Last Admin Trade Name Freq PRN Reason Stop Dose Admin Cyclobenzaprine HCl 10 mg 04/28/25 09:33 04/28/25 10:06 Cyclobenzaprine Hcl 10 Mg Tablet PO 04/28/25 09:34 10 mg ONCE ONE Administration MDM - Neck Pain/Injury MDM Narrative Medical decision making narrative: Patient is a 59-year-old female presenting for neck pain and right arm weakness/numbness. This has been going on for a couple weeks now. This does seem most likely to be some kind of nerve issue. Seems very unlikely to be a stroke at this time. To not be head imaging is necessary. All symptoms seem to start at the neck and I will do an MRI of the neck for better evaluation. Muscle relaxer given for pain. She still having pain. MRI returned showing herniated discs with severe narrowing at C4-C5 and C5-C6. This is likely the cause of all of her symptoms. Will give a referral for physical therapy. She is agreeable to this plan. She does states she has an appointment with for pain doctor today at 16:00. Copy of the report was given. Imaging Data MRI cervical spine: Attestation: I have reviewed the pertinent imaging results. Radiologist's impression: The cervical vertebral body heights are grossly maintained with minimal endplate Schmorl`s defects. There is mild positional versus spasmodic straightening of the normal cervical lordosis. No significant spondylolisthesis. There is grossly preserved marrow signal intensity. The spinal cord is normal in signal and contour. The paraspinous soft tissues and cervical flow voids are unremarkable. C2-C3: There is a minimal diffuse disc bulge with small central protrusion. No significant spinal canal stenosis or neural foraminal narrowing. C3-C4: There is a diffuse disc bulge with a central disc protrusion. There is mild uncovertebral joint disease with mild left neural foraminal narrowing. Mild spinal canal stenosis. C4-C5: There is a diffuse disc bulge with a right sided disc protrusion with severe right uncovertebral joint disease. There is [id number]-tn-stizhxlc spinal canal narrowing with moderate to severe right neural foraminal narrowing. C5-C6: Moderate posterior disc osteophyte complex with severe uncovertebral joint disease changes. Severe bilateral neural foraminal narrowing right greater than left with mild spinal canal stenosis. C6-C7: There is a diffuse disc bulge with a left foraminal disc protrusion. There is mild spinal canal narrowing with severe left neural foraminal narrowing. C7-T1: No significant spinal canal stenosis or neural foraminal narrowing. Impression: Multilevel degenerative changes of the cervical spine worst at the C4-C5 and C5-C6 levels as described above. Dictated by William Orr MD @ 04/28/2025 11:11:04 AM Discharge Plan Discharge Clinical Impression: Cervical disc herniation Patient Disposition: Home, Self-Care Condition: Stable Instructions: Cervical Disc Herniation (ED) Additional Instructions: Your pain is likely from herniated discs in your neck. Treatment for this is typically physical therapy. Referral was sent. If they do not call you by tomorrow afternoon I recommend calling [facility] at [phone] to get an appointment scheduled. Use her previously prescribed pain medication as needed for pain control. I do recommend following up with the primary care provider. I do also recommend following up with [facility]. You can call them for an appointment at [phone]. Prescriptions: No Action lisinopril 20 mg tablet 20 mg PO QDAY Qty: 90 3RF fluoxetine 20 mg capsule 60 mg PO QDAY Qty: 270 3RF trazodone 150 mg tablet 150 mg PO .HS PRN (Reason: insomnia) Qty: 90 3RF cyanocobalamin (vitamin B-12) 1,000 mcg/mL solution 1,000 mcg IM Q4W 360 Days Qty: 10 3RF hydrocodone-acetaminophen 10-325 mg tablet 1 tab PO .2-3 x daily PRN (Reason: chronic pain) (DME) Accu-Chek Guide test strips Strip See Rx Instructions .Route Qty: 200 0RF Rx Instructions: use to test blood sugar twice daily albuterol sulfate [Ventolin HFA] 90 mcg/actuation HFA aerosol inhaler 2 puff inhalation Q4H PRN (Reason: shortness of breath or wheezing) Qty: 8.5 5RF Mounjaro 15 mg/0.5 mL pen injector 15 mg subcut QWEEK Qty: 2 3RF atorvastatin 40 mg tablet 40 mg PO QHS Qty: 90 1RF alprazolam 1 mg tablet See Rx Instructions PO .ud Qty: 30 1RF Rx Instructions: 1/2 to 1 tab tid prn anxiety orally UD; Follow Up/Referrals: Ned Aquino MD [Primary Care Provider, Family Practice] Stand Alone Forms: Aqua Access Info Instructions
== END 2025-04-28 11:47 | disposition home or self-care (01) ==
PROVIDERS: Emergency Provider Student in an Organized Health Care Education/Training Program; PCP Family Medicine
DX: M50.321 Other cervical disc degeneration at C4-C5 level (principal); M50.322 Other cervical disc degeneration at C5-C6 level; W19.XXXA Unspecified fall, initial encounter
CPT/HCPCS: 72141; 99283; 99284; A9270

== ENCOUNTER 2025-06-27 16:15 | Outpatient (CLI) | payer OTHER, SELFPAY | END 2025-06-27 16:16 | disposition home or self-care (01) | PROVIDERS: PCP Family Medicine; Visit Provider Family Medicine | DX: Z13.29 Encounter for screening for other suspected endocrine disorder (principal); I65.23 Occlusion and stenosis of bilateral carotid arteries | CPT/HCPCS: 80061; 84443 ==